=== PATIENT | female | born 1965 | race Hispanic/Latino ===

== ENCOUNTER 2018-01-10 05:04 | Emergency (ER) | payer SELFPAY ==
[2018-01-10] MEDS ORDERED: Ondansetron ODT 4 MG TAB ONE (05:28)
[2018-01-10] MEDS ORDERED: Metoclopramide HCl 10 MG/2 ML VIAL ONE (05:28)
[2018-01-10] MEDS ORDERED: diphenhydrAMINE 50 MG/ML VIAL ONE (05:28)
[2018-01-10] MEDS ORDERED: Acetaminophen 500 MG TAB ONE ×2 (05:38→05:39)
[2018-01-10] MEDS ORDERED: Ketorolac Tromethamine 30 MG/ML VIAL ONE (05:47)
== END 2018-01-10 06:25 | disposition home or self-care (01) ==
LOC: ERS 05:04
DX: G43.909 Migraine, unspecified, not intractable, without status migrainosus (principal)
CPT/HCPCS: 96365; 96375; J1200; J1885; J2765; Q0162

== ENCOUNTER 2020-12-06 13:28 | Emergency (ER) | payer SELFPAY | END 2020-12-06 16:06 | disposition home or self-care (01) | LOC: ERS 13:28 | DX: K08.89 Other specified disorders of teeth and supporting structures (principal); G43.909 Migraine, unspecified, not intractable, without status migrainosus | CPT/HCPCS: 99282 ==

== ENCOUNTER 2021-12-15 21:59 | Emergency (ER) | payer SELFPAY ==
[2021-12-15 22:53] LABS: #Eosinphils 0.8 thou/uL (0.0-0.7); #Lymphocytes 1.9 thou/uL (1.20-3.40); #Monocytes 0.9 thou/uL (0.11-0.59); #Neutrophils 4.2 thou/uL (1.40-6.50); %Basophils 0.3 % (0.0-1.0); %Eosinophils 9.8 % (0.0-10.0); %Lymphocytes 24.7 % (21.0-51.0); %Monocytes 11.4 % (0.0-10.0); %Neutrophils 53.8 % (42.0-75.0); Mean Corpuscular HGB CONC 34.6 g/dL (32.0-36.0); Mean Corpuscular Hemoglobin 32.1 pg (27.0-31.0); Mean Corpuscular Volume 92.6 fL (78.0-98.0); Mean Platelet Volume 6.3 fL (7.4-10.4); Platelet Count 318 thou/uL (130-400); RBC Distribution Width 12.9 % (11.5-14.5); Red Blood Cell (RBC) Count 4.36 mill/uL (4.20-5.40); White Blood Cell (WBC) Count 7.9 thou/uL (4.8-10.8)
[2021-12-15 23:15] LABS: ALT (SGPT) 16 U/L (8-55); AST (SGOT) 12 U/L (5-34); Alkaline Phosphatase 72 U/L (40-110); Anion Gap 13 mmol/L (10-20); BUN (Urea Nitrogen) 10 mg/dL (9.8-20.1); Bilirubin, Total 0.5 mg/dL (0.2-1.2); Calc. Creatinine Clearance 0 mL/min (70-130); Calcium 8.6 mg/dL (7.8-10.44); Carbon Dioxide 24 mmol/L (22-29); Chloride 106 mmol/L (98-107); Globulin 3.4 g/dL (2.4-3.5); Glucose 119 mg/dL (70-105); Potassium 3.1 mmol/L (3.5-5.1); Protein, Total 7.4 g/dL (6.0-8.3); Sodium 140 mmol/L (136-145)
== END 2021-12-15 23:52 | disposition home or self-care (01) ==
LOC: ERS 21:59
DX: N61.0 Mastitis without abscess (principal)
CPT/HCPCS: 80053; 85025; 99283

== ENCOUNTER 2022-04-10 07:57 | Emergency (ER) | payer SELFPAY ==
[2022-04-10] MEDS ORDERED: Ondansetron ODT 4 MG TAB ONE (08:32)
[2022-04-10] MEDS ORDERED: Acetaminophen 500 MG TAB ONE (08:32)
== END 2022-04-10 08:38 | disposition home or self-care (01) ==
LOC: ERS 07:57
DX: U07.1 COVID-19 (principal); G43.909 Migraine, unspecified, not intractable, without status migrainosus
CPT/HCPCS: 99283; Q0162; U0003; U0005

== ENCOUNTER 2022-05-30 10:26 | Emergency (ER) | payer SELFPAY ==
[2022-05-30 12:05] LABS: #Lymphocytes 0.8 thou/uL (1.20-3.40); #Monocytes 1.2 thou/uL (0.11-0.59); #Neutrophils 7.2 thou/uL (1.40-6.50); %Eosinophils 0.1 % (0.0-10.0); %Lymphocytes 8.7 % (21.0-51.0); %Monocytes 12.9 % (0.0-10.0); %Neutrophils 78.3 % (42.0-75.0); Hemoglobin 13.6 g/dL (12.0-16.0); Mean Corpuscular HGB CONC 32.7 g/dL (32.0-36.0); Mean Corpuscular Hemoglobin 29.2 pg (27.0-31.0); Mean Corpuscular Volume 89.2 fl (78.0-98.0); Mean Platelet Volume 6.9 fL (7.4-10.4); Platelet Count 262 thou/uL (130-400); RBC Distribution Width 14.3 % (11.5-14.5); Red Blood Cell (RBC) Count 4.67 mill/uL (4.20-5.40); White Blood Cell (WBC) Count 9.2 thou/uL (4.8-10.8)
[2022-05-30] MEDS ORDERED: Prochlorperazine 10 MG/2 ML VIAL IVP SCH (12:15)
[2022-05-30 12:21] LABS: Bacteria/HPF 1+ HPF (None Seen); Bilirubin Negative (Negative); Blood, Urine 2+ (Negative); Clarity Hazy (Clear); Glucose, Urine (Dipstick) Normal (Negative); Ketone, Urine 10 mg/dL (Negative); Leukocyte Negative Leu/uL (Negative); Nitrite Negative (Negative); Protein, Urine (Dipstick) 50 mg/dL (Neg-Trace); RBC/HPF 0-3 HPF (0-3); Specific Gravity, Urine 1.031 (1.002-1.036); Urobilinogen 3 mg/dL (Less than 2); WBC/HPF 0-3 HPF (0-3)
[2022-05-30 12:25] LABS: ALT (SGPT) 23 U/L (8-55); AST (SGOT) 18 U/L (5-34); Albumin 4.2 g/dL (3.5-5.0); Alkaline Phosphatase 143 U/L (40-110); Anion Gap 14 mmol/L (10-20); BUN (Urea Nitrogen) 12 mg/dL (9.8-20.1); Bilirubin, Total 1.6 mg/dL (0.2-1.2); Calc. Creatinine Clearance 0 mL/min (70-130); Calcium 9.5 mg/dL (7.8-10.44); Carbon Dioxide 24 mmol/L (22-29); Chloride 101 mmol/L (98-107); Estimated GFR 73; Globulin 4.6 g/dL (2.4-3.5); Glucose 119 mg/dL (70-105); Lipase 17 U/L (8-78); Potassium 3.5 mmol/L (3.5-5.1); Protein, Total 8.8 g/dL (6.0-8.3); Sodium 135 mmol/L (136-145)
== END 2022-05-30 13:17 | disposition home or self-care (01) ==
LOC: ERS 10:26
DX: R11.2 Nausea with vomiting, unspecified (principal)
CPT/HCPCS: 80053; 81003; 81015; 83605; 83690; 85025; 93005; 96361; 96374; J0780

== ENCOUNTER 2022-06-17 14:35 | Emergency (ER) | payer SELFPAY ==
[2022-06-17] MEDS ORDERED: Prochlorperazine 10 MG/2 ML VIAL ONE (16:35)
[2022-06-17] MEDS ORDERED: Prochlorperazine Maleate 5 MG TAB ONE (16:36)
== END 2022-06-17 17:04 | disposition home or self-care (01) ==
LOC: ERS 14:35
DX: K04.7 Periapical abscess without sinus (principal); G43.909 Migraine, unspecified, not intractable, without status migrainosus
CPT/HCPCS: 99282; J0780; Q0164

== ENCOUNTER 2022-07-20 13:35 | Inpatient (IN) | payer SELFPAY ==
[2022-07-20] MEDS ORDERED: Cefepime 2 GM VIAL ONE (14:02)
[2022-07-20] MEDS ORDERED: Ondansetron PF 4 MG/2 ML Vial ONE (14:13)
[2022-07-20 14:24] LABS: Hemoglobin 14.5 g/dL (12.0-16.0); Mean Corpuscular HGB CONC 33.7 g/dL (32.0-36.0); Mean Corpuscular Hemoglobin 30.2 pg (27.0-31.0); Mean Corpuscular Volume 89.5 fl (78.0-98.0); Mean Platelet Volume 7.2 fL (7.4-10.4); Platelet Count 264 10x3/uL (130-400); RBC Distribution Width 15.9 % (11.5-14.5); Red Blood Cell (RBC) Count 4.82 mill/uL (4.20-5.40); White Blood Cell (WBC) Count 9.1 10x3/uL (4.8-10.8)
[2022-07-20 14:38] LABS: ALT (SGPT) 19 U/L (8-55); AST (SGOT) 14 U/L (5-34); Albumin 4.1 g/dL (3.5-5.0); Alkaline Phosphatase 114 U/L (40-110); Anion Gap 16 mmol/L (10-20); BUN (Urea Nitrogen) 13 mg/dL (9.8-20.1); Bilirubin, Total 1.4 mg/dL (0.2-1.2); Calc. Creatinine Clearance 0 mL/min (70-130); Calcium 9.5 mg/dL (7.8-10.44); Carbon Dioxide 22 mmol/L (22-29); Chloride 99 mmol/L (98-107); Estimated GFR 73; Globulin 4.4 g/dL (2.4-3.5); Glucose 113 mg/dL (70-105); Lipase 18 U/L (8-78); Magnesium 2.1 mg/dL (1.6-2.6); Potassium 3.8 mmol/L (3.5-5.1); Protein, Total 8.5 g/dL (6.0-8.3); Sodium 133 mmol/L (136-145)
[2022-07-20 14:39] LABS: Anisocytosis SLIGHT = 6-15 cells (100X) (0-5/hpf); Band 8 % (5-11); Lymphocytes 6 % (21-51); MDiff Complete? YES; Monocytes 21 % (0-10); Neutrophil 64 % (42-75); Platelet Morphology Comment Appears Adequate; Reactive Lymphocytes 1 % (0-10)
[2022-07-20] MEDS ORDERED: Vancomycin 1 GM in Premix Bag 1 BAG IVPB SCH (15:00)
[2022-07-20] MEDS ORDERED: Iopamidol-370 76% 500 ML 1 ML ONE (15:02)
[2022-07-20] MEDS ORDERED: Vancomycin 1 GM/200 ML (FROZEN) BAG ONE (16:37)
[2022-07-20] MEDS ORDERED: Acetaminophen 500 MG TAB ONE (16:37)
[2022-07-20] MEDS ORDERED: Vancomycin 1.5 GRAM/300 ML BAG 1.5 GM in Premix Bag 1 BAG IVPB SCH (17:00)
[2022-07-20 17:14] LABS: Bacteria/HPF None Seen HPF (None Seen); Bilirubin Negative (Negative); Blood, Urine 1+ (Negative); Clarity Clear (Clear); Glucose, Urine (Dipstick) Normal (Negative); Ketone, Urine Trace mg/dL (Negative); Leukocyte Negative Leu/uL (Negative); Nitrite Negative (Negative); Protein, Urine (Dipstick) 20 mg/dL (Neg-Trace); Urobilinogen Normal mg/dL (Less than 2); WBC/HPF 0-3 HPF (0-3)
[2022-07-20 17:15] LABS: Specific Gravity, Urine Greater than 1.060 (1.002-1.036)
[2022-07-20] MEDS: Sodium Chloride 0.9% 1,000 ML IV SCH (22:16)
[2022-07-20] MEDS: Ondansetron PF 4 MG/2 ML Vial IVP PRN (22:19)
[2022-07-20 22:38] VITALS: BMI 28.3
[2022-07-21] MEDS: Acetaminophen 325 MG TAB PO PRN ×3 (01:17→16:22)
[2022-07-21] MEDS: Cefepime 1 GM in Sodium Chloride 0.9% 100 ML IVPB SCH ×2 (01:17→13:04)
[2022-07-21 03:16] LABS: SARS-CoV-2 NAA Rapid Test Not Detected (NotDetected)
[2022-07-21] MEDS: Sodium Chloride 0.9% 1,000 ML IV SCH ×2 (05:51→13:06)
[2022-07-21 06:36] LABS: ALT (SGPT) 15 U/L (8-55); AST (SGOT) 14 U/L (5-34); Albumin 3.1 g/dL (3.5-5.0); Alkaline Phosphatase 84 U/L (40-110); Anion Gap 12 mmol/L (10-20); BUN (Urea Nitrogen) 11 mg/dL (9.8-20.1); Bilirubin, Total 0.9 mg/dL (0.2-1.2); Calc. Creatinine Clearance 83 mL/min (70-130); Calcium 8.5 mg/dL (7.8-10.44); Carbon Dioxide 17 mmol/L (22-29); Chloride 110 mmol/L (98-107); Estimated GFR 92; Globulin 3.3 g/dL (2.4-3.5); Glucose 86 mg/dL (70-105); Potassium 4.2 mmol/L (3.5-5.1); Protein, Total 6.4 g/dL (6.0-8.3); Sodium 135 mmol/L (136-145)
[2022-07-21 07:22] LABS: Band 8 % (5-11); Hemoglobin 11.3 g/dL (12.0-16.0); Lymphocytes 12 % (21-51); MDiff Complete? YES; Mean Corpuscular HGB CONC 33.3 g/dL (32.0-36.0); Mean Corpuscular Hemoglobin 29.9 pg (27.0-31.0); Mean Corpuscular Volume 89.8 fl (78.0-98.0); Mean Platelet Volume 6.8 fL (7.4-10.4); Monocytes 17 % (0-10); Neutrophil 63 % (42-75); Platelet Count 204 10x3/uL (130-400); RBC Distribution Width 15.5 % (11.5-14.5); Red Blood Cell (RBC) Count 3.79 mill/uL (4.20-5.40); White Blood Cell (WBC) Count 6.3 10x3/uL (4.8-10.8)
[2022-07-21] MEDS ORDERED: FLU VACC QS2022-23(6MOS UP)/PF 60 MCG/0.5 ML SYRINGE IM ONE (09:00)
[2022-07-21] MEDS: Ondansetron ODT 4 MG TAB PO PRN (09:04)
[2022-07-21] MEDS: Lactated Ringer's 1,000 ML IV SCH (16:22)
[2022-07-21] MEDS: Vancomycin 1 GM in Premix Bag 1 BAG IVPB SCH (16:22)
[2022-07-21 16:56] LABS: Troponin I Less than 0.010 ng/mL (< 0.028)
[2022-07-21 17:13] LABS: HBCM Index 0.07 S/CO (0-0.79); HBSAg Index 0.37 S/CO (0-0.99); HIV (1/2) Antibody/Antigen Non-Reactive (NonReactive); HIV 1/2 INDEX 0.13 S/CO (<1.00); Hep A IgM AB Non-Reactive (NonReactive); Hep B Surf Ag Non-Reactive S/CO (NonReactive); Hep C IgG Ab Non-Reactive (NonReactive); Hep C Index 0.06 S/CO (0-0.79); Hepatitis B Core IgM Abs Non-Reactive (NonReactive)
[2022-07-21] MEDS ORDERED: Enoxaparin Sodium 40 MG/0.4 ML SYRINGE SC SCH (21:00)
[2022-07-21] MEDS: Ondansetron PF 4 MG/2 ML Vial IVP PRN (22:54)
[2022-07-22 00:43] LABS: Campy jejuni + coli by PCR Negative (Negative); STEC Shiga Toxin 1+2 Negative (Negative); Salmonella spp. by PCR Negative (Negative); Shigella spp + EIEC by PCR Negative (Negative)
[2022-07-22] MEDS: Cefepime 1 GM in Sodium Chloride 0.9% 100 ML IVPB SCH ×2 (02:34→13:03)
[2022-07-22] MEDS: Lactated Ringer's 1,000 ML IV SCH ×2 (02:35→11:38)
[2022-07-22] MEDS: Acetaminophen 325 MG TAB PO PRN ×3 (02:40→21:25)
[2022-07-22] MEDS: Ondansetron ODT 4 MG TAB PO PRN ×3 (05:08→21:25)
[2022-07-22 09:33] LABS: Hemoglobin 10.9 g/dL (12.0-16.0); Mean Corpuscular HGB CONC 32.1 g/dL (32.0-36.0); Mean Corpuscular Hemoglobin 29.3 pg (27.0-31.0); Mean Corpuscular Volume 91.3 fl (78.0-98.0); Mean Platelet Volume 6.8 fL (7.4-10.4); Platelet Count 227 10x3/uL (130-400); RBC Distribution Width 15.4 % (11.5-14.5); Red Blood Cell (RBC) Count 3.72 mill/uL (4.20-5.40); White Blood Cell (WBC) Count 5.2 10x3/uL (4.8-10.8)
[2022-07-22 09:34] LABS: Anion Gap 12 mmol/L (10-20); BUN (Urea Nitrogen) 7 mg/dL (9.8-20.1); Calc. Creatinine Clearance 103 mL/min (70-130); Calcium 8.6 mg/dL (7.8-10.44); Carbon Dioxide 19 mmol/L (22-29); Chloride 110 mmol/L (98-107); Estimated GFR 105; Glucose 101 mg/dL (70-105); Potassium 3.5 mmol/L (3.5-5.1); Sodium 137 mmol/L (136-145)
[2022-07-22 11:04] LABS: Syphilis Antibody Nonreactive (Nonreactive); Syphilis Antibody Index 0.08 S/CO (<1.00 Non-Reactive)
[2022-07-22 11:12] LABS: Band 15 % (5-11); Lymphocytes 14 % (21-51); MDiff Complete? YES; Monocytes 18 % (0-10); Neutrophil 51 % (42-75); Platelet Morphology Comment Appears Adequate; Polychromasia SLIGHT = 2-3 cells (100X) (0-2/hpf)
[2022-07-22] MEDS: Vancomycin 1 GM in Premix Bag 1 BAG IVPB SCH (16:13)
[2022-07-23] MEDS: Ondansetron ODT 4 MG TAB PO PRN ×2 (07:25→15:34)
[2022-07-23 08:34] LABS: #Eosinphils 0.2 thou/uL (0.0-0.7); #Lymphocytes 1.1 thou/uL (1.20-3.40); #Monocytes 0.6 thou/uL (0.11-0.59); %Basophils 0.2 % (0.0-1.0); %Eosinophils 3.8 % (0.0-10.0); %Lymphocytes 21.7 % (21.0-51.0); %Monocytes 12.5 % (0.0-10.0); %Neutrophils 61.9 % (42.0-75.0); Hemoglobin 11.8 g/dL (12.0-16.0); Mean Corpuscular HGB CONC 33.2 g/dL (32.0-36.0); Mean Corpuscular Hemoglobin 29.7 pg (27.0-31.0); Mean Corpuscular Volume 89.3 fl (78.0-98.0); Mean Platelet Volume 6.7 fL (7.4-10.4); Platelet Count 273 10x3/uL (130-400); RBC Distribution Width 15.3 % (11.5-14.5); Red Blood Cell (RBC) Count 3.98 mill/uL (4.20-5.40); White Blood Cell (WBC) Count 4.9 10x3/uL (4.8-10.8)
[2022-07-23 08:40] LABS: CRP (Inflammatory) 13.97 mg/dL (= or < 0.5)
[2022-07-23 08:41] LABS: Anion Gap 13 mmol/L (10-20); BUN (Urea Nitrogen) 5 mg/dL (9.8-20.1); Calc. Creatinine Clearance 97 mL/min (70-130); Calcium 8.9 mg/dL (7.8-10.44); Carbon Dioxide 23 mmol/L (22-29); Chloride 107 mmol/L (98-107); Estimated GFR 103; Glucose 99 mg/dL (70-105); Potassium 3.6 mmol/L (3.5-5.1); Sodium 139 mmol/L (136-145)
[2022-07-23 09:05] LABS: Ferritin 749.68 ng/mL (10-291)
[2022-07-23 11:27] LABS: Syphilis Antibody Nonreactive (Nonreactive); Syphilis Antibody Index 0.05 S/CO (<1.00 Non-Reactive)
[2022-07-23 11:51] LABS: Chlam.trachomatis by PCR,Urine Not Detected (NotDetected)
[2022-07-23] MEDS: Acetaminophen 325 MG TAB PO PRN (18:14)
[2022-07-23] MEDS: Ondansetron ODT 4 MG TAB PO SCH ×2 (18:15→23:41)
[2022-07-24] MEDS: Ondansetron ODT 4 MG TAB PO SCH ×4 (05:59→23:32)
[2022-07-24] MEDS: Acetaminophen 325 MG TAB PO PRN (06:00)
[2022-07-24 12:58] LABS: ANA Symphony (Qualitative) Negative (Negative); ANA Symphony (Quantitative) 0.3 Ratio (< 0.7 Negative); dsDNA IgG Antibody 0.9 IU/mL (<10 Negative)
[2022-07-25] MEDS: Acetaminophen 325 MG TAB PO PRN ×3 (04:43→23:50)
[2022-07-25] MEDS: Ondansetron ODT 4 MG TAB PO SCH ×4 (06:25→23:50)
[2022-07-25 10:13] LABS: Bartonella henselae IgG Negative titer (Neg:<1:320); Bartonella henselae IgM Negative titer (Neg:<1:100); Bartonella quintana IgG Negative titer (Neg:<1:320); Bartonella quintana IgM Negative titer (Neg:<1:100)
[2022-07-25] MEDS ORDERED: Lidocaine 1% PF 5 ML VIAL ONE ×2 (10:45→12:28)
[2022-07-25] MEDS ORDERED: PROPOFOL 200 MG/20 ML VIAL ONE (10:45)
[2022-07-25] MEDS ORDERED: Sodium Bicarbonate 2.5 MEQ/5 ML VIAL ONE (12:28)
[2022-07-26] MEDS: Ondansetron ODT 4 MG TAB PO SCH ×2 (05:31→14:18)
[2022-07-26] MEDS: Acetaminophen 325 MG TAB PO PRN (05:31)
[2022-07-26 06:17] VITALS: TEMP 98
[2022-07-26 08:15] VITALS: BP 104/68
[2022-07-26 08:38] LABS: Brucella IgM Ab Negative (Negative)
[2022-07-26] MEDS ORDERED: Sodium Bicarbonate 2.5 MEQ/5 ML VIAL ONE (11:27)
[2022-07-26] MEDS ORDERED: Lidocaine 1% PF 5 ML VIAL ONE (11:27)
[2022-07-26 16:54] LABS: Ref Lab Test Ordered KARIUS TEST; Reference Lab Name KARIUS
[2022-07-27 04:13] LABS: QuantiFERON-TB Gold Plus Negative (Negative)
[2022-07-30 17:10] LABS: EliA Celiac New Method **** NEW METHOD ****; t-Transglutaminase (tTG) IgA 1.7 EliAU/mL (<7 Negative)
== END 2022-07-26 14:40 | disposition home or self-care (01) | DRG 803 ==
LOC: ERS 13:35 → SURG B 17:39
PROVIDERS: ADMIT Hospitalist; ATTEND Internal Medicine
PROC: 0DB78ZX Excision of Stomach, Pylorus, Via Natural or Artificial Opening Endoscopic, Diagnostic (ICD-10-PCS; 2022-07-25)
PROC: 07BJ3ZX Excision of Left Inguinal Lymphatic, Percutaneous Approach, Diagnostic (ICD-10-PCS; principal; 2022-07-26)
DX: R59.1 Generalized enlarged lymph nodes (principal); E87.1 Hypo-osmolality and hyponatremia; Z20.822 Contact with and (suspected) exposure to COVID-19; G43.909 Migraine, unspecified, not intractable, without status migrainosus; F41.9 Anxiety disorder, unspecified; R31.9 Hematuria, unspecified; R63.4 Abnormal weight loss; D63.8 Anemia in other chronic diseases classified elsewhere; K29.70 Gastritis, unspecified, without bleeding; Z90.710 Acquired absence of both cervix and uterus; Z90.49 Acquired absence of other specified parts of digestive tract; Z88.5 Allergy status to narcotic agent; Z88.0 Allergy status to penicillin; Z79.899 Other long term (current) drug therapy; Z68.28 Body mass index [BMI] 28.0-28.9, adult; Z86.16 Personal history of COVID-19
CPT/HCPCS: 36415; 38505; 70450; 71045; 74177; 80048; 80053; 80074; 80202; 81003; 81015; 82533; 82607; 82728; 83516; 83540; 83550; 83605; 83630; 83690; 83735; 84484; 85025; 85652; 86038; 86140; 86225; 86480; 86611; 86622; 86780; 87040; 87086; 87338; 87389; 87491; 87505; 87591; 87804; 87807; 88184; 88185; 88305; 88312; 88333; 88341; 88342; 96365; 96366; 96375; J0692; J2405; J2704; J3370; J3370-JW; J3490; J7050; J7120; Q0162; Q9967; U0002

== ENCOUNTER 2022-08-05 19:09 | Inpatient (IN) | payer OTHER, SELFPAY ==
[~2022-08-05 19:09] MED LIST: Iopamidol-370 76% 500 ML 1 ML ONE
[2022-08-05 19:44] LABS: #Lymphocytes 1.4 thou/uL (1.20-3.40); #Monocytes 1.5 thou/uL (0.11-0.59); #Neutrophils 9.6 thou/uL (1.40-6.50); %Basophils 0.1 % (0.0-1.0); %Monocytes 11.7 % (0.0-10.0); %Neutrophils 77.2 % (42.0-75.0); Hemoglobin 13.4 g/dL (12.0-16.0); Mean Corpuscular HGB CONC 33.8 g/dL (32.0-36.0); Mean Corpuscular Hemoglobin 29.5 pg (27.0-31.0); Mean Corpuscular Volume 87.4 fl (78.0-98.0); Mean Platelet Volume 6.6 fL (7.4-10.4); Platelet Count 271 10x3/uL (130-400); RBC Distribution Width 15.7 % (11.5-14.5); Red Blood Cell (RBC) Count 4.55 mill/uL (4.20-5.40); White Blood Cell (WBC) Count 12.4 10x3/uL (4.8-10.8)
[2022-08-05 20:04] LABS: ALT (SGPT) 16 U/L (8-55); AST (SGOT) 15 U/L (5-34); Albumin 4.2 g/dL (3.5-5.0); Alkaline Phosphatase 107 U/L (40-110); Anion Gap 16 mmol/L (10-20); BUN (Urea Nitrogen) 11 mg/dL (9.8-20.1); Bilirubin, Total 1.3 mg/dL (0.2-1.2); Calc. Creatinine Clearance 0 mL/min (70-130); Calcium 9.1 mg/dL (7.8-10.44); Carbon Dioxide 21 mmol/L (22-29); Chloride 103 mmol/L (98-107); Estimated GFR 82; Globulin 3.6 g/dL (2.4-3.5); Glucose 117 mg/dL (70-105); Lipase 38 U/L (8-78); Potassium 4.1 mmol/L (3.5-5.1); Protein, Total 7.8 g/dL (6.0-8.3); Sodium 136 mmol/L (136-145)
[2022-08-05] MEDS ORDERED: Ondansetron PF 4 MG/2 ML Vial ONE (21:21)
[2022-08-05 21:41] LABS: Bacteria/HPF None Seen HPF (None Seen); Bilirubin Negative (Negative); Blood, Urine 2+ (Negative); Clarity Clear (Clear); Glucose, Urine (Dipstick) Normal (Negative); Ketone, Urine Negative (Negative); Leukocyte Negative Leu/uL (Negative); Nitrite Negative (Negative); Protein, Urine (Dipstick) 50 mg/dL (Neg-Trace); Specific Gravity, Urine 1.032 (1.002-1.036); Urobilinogen 3 mg/dL (Less than 2); WBC/HPF 0-3 HPF (0-3); pH, Urine 5.5 (5.0-9.0)
[2022-08-05 21:44] LABS: BHCG - Serum Negative (NEGATIVE); Pregs Control Background? CLEAR/WHITE (CLR/WHITE); Pregs Control Bar Appear? YES (CONTROL BAR)
[2022-08-05] MEDS ORDERED: Ketorolac Tromethamine 30 MG/ML VIAL ONE (21:52)
[2022-08-05 22:46] LABS: SARS-CoV-2 NAA Rapid Test Not Detected (NotDetected)
[2022-08-05] MEDS ORDERED: Cefepime 2 GM VIAL ONE (23:06)
[2022-08-06 00:30] LABS: Lactic Acid 1.2 mmol/L (0.5-2.2)
[2022-08-06] MEDS ORDERED: Vancomycin 1.5 GRAM/300 ML BAG 1.5 GM in Premix Bag 1 BAG IVPB SCH (00:45)
[2022-08-06] MEDS ORDERED: Ondansetron PF 4 MG/2 ML Vial ONE (03:37)
[2022-08-06] MEDS: Ondansetron PF 4 MG/2 ML Vial IVP PRN ×2 (03:52→19:53)
[2022-08-06] MEDS: Sodium Chloride 0.9% 1,000 ML IV SCH ×3 (03:53→19:56)
[2022-08-06 05:23] LABS: Anion Gap 14 mmol/L (10-20); BUN (Urea Nitrogen) 15 mg/dL (9.8-20.1); Calc. Creatinine Clearance 0 mL/min (70-130); Calcium 8.5 mg/dL (7.8-10.44); Carbon Dioxide 18 mmol/L (22-29); Chloride 107 mmol/L (98-107); Estimated GFR 86; Glucose 124 mg/dL (70-105); Potassium 4.3 mmol/L (3.5-5.1); Sodium 135 mmol/L (136-145)
[2022-08-06] MEDS ORDERED: Ketorolac Tromethamine 30 MG/ML VIAL ONE (05:34)
[2022-08-06] MEDS: Promethazine HCl 25 MG/ML VIAL IM PRN (05:40)
[2022-08-06] MEDS: Ketorolac Tromethamine 30 MG/ML VIAL IVP PRN ×2 (06:00→13:24)
[2022-08-06] MEDS ORDERED: Piperacillin/Tazobactam 3.375 GM in Sodium Chloride 0.9% 100 ML IVPB SCH (06:00)
[2022-08-06] MEDS ORDERED: Cefepime 2 GM VIAL ONE (06:18)
[2022-08-06 06:19] LABS: Hemoglobin 11.9 g/dL (12.0-16.0); Mean Corpuscular HGB CONC 34.8 g/dL (32.0-36.0); Mean Corpuscular Hemoglobin 30.5 pg (27.0-31.0); Mean Corpuscular Volume 87.7 fl (78.0-98.0); Platelet Count 204 10x3/uL (130-400); RBC Distribution Width 15.6 % (11.5-14.5); Red Blood Cell (RBC) Count 3.91 mill/uL (4.20-5.40); White Blood Cell (WBC) Count 9.1 10x3/uL (4.8-10.8)
[2022-08-06 06:41] LABS: Anisocytosis SLIGHT = 6-15 cells (100X) (0-5/hpf); Band 7 % (5-11); Lymphocytes 11 % (21-51); MDiff Complete? YES; Monocytes 12 % (0-10); Neutrophil 70 % (42-75); Platelet Morphology Comment Appears Adequate; Vacuoles SLIGHT
[2022-08-06] MEDS: Cefepime 2 GM in Sodium Chloride 0.9% 100 ML IVPB SCH ×2 (06:44→17:00)
[2022-08-06 13:36] VITALS: BMI 27.2
[2022-08-06] MEDS: Ondansetron ODT 4 MG TAB PO PRN (13:41)
[2022-08-06] MEDS: Acetaminophen 325 MG TAB PO PRN (19:54)
[2022-08-07] MEDS: Promethazine HCl 25 MG/ML VIAL IM PRN ×2 (03:03→08:56)
[2022-08-07] MEDS: Cefepime 2 GM in Sodium Chloride 0.9% 100 ML IVPB SCH ×2 (05:21→17:05)
[2022-08-07] MEDS: Sodium Chloride 0.9% 1,000 ML IV SCH ×2 (05:22→15:14)
[2022-08-07] MEDS: Acetaminophen 650 MG Suppository PR PRN (13:04)
[2022-08-07] MEDS ORDERED: Morphine 4 MG/ML VIAL SLOW IVP SCH (15:30)
[2022-08-07] MEDS: Acetaminophen 325 MG TAB PO PRN (19:40)
[2022-08-07] MEDS: Ondansetron PF 4 MG/2 ML Vial IVP PRN (19:40)
[2022-08-08] MEDS: Ondansetron PF 4 MG/2 ML Vial IVP PRN ×2 (01:07→10:48)
[2022-08-08] MEDS: Sodium Chloride 0.9% 1,000 ML IV SCH ×4 (01:10→20:56)
[2022-08-08] MEDS: Acetaminophen 325 MG TAB PO PRN ×3 (02:58→22:36)
[2022-08-08] MEDS: Calcium Carbonate 500 MG ChewTAB PO PRN ×2 (03:39→20:58)
[2022-08-08] MEDS ORDERED: Famotidine 20 MG TAB PO SCH (03:45)
[2022-08-08] MEDS: Cefepime 2 GM in Sodium Chloride 0.9% 100 ML IVPB SCH (06:08)
[2022-08-08 15:19] LABS: Ref Lab Test Ordered TROPHERYMA WHIPPLEI; Reference Lab Name LABCORP
[2022-08-08] MEDS: cefTRIAXone\\ROCEPHIN 2 GM in Sodium Chloride 0.9% 100 ML IVPB SCH (16:02)
[2022-08-08] MEDS: Ondansetron ODT 4 MG TAB PO PRN (20:58)
[2022-08-09] MEDS: Calcium Carbonate 500 MG ChewTAB PO PRN ×3 (00:33→21:01)
[2022-08-09] MEDS: Acetaminophen 325 MG TAB PO PRN ×3 (04:53→21:01)
[2022-08-09] MEDS: Ondansetron ODT 4 MG TAB PO PRN ×3 (04:53→21:01)
[2022-08-09] MEDS: Sodium Chloride 0.9% 1,000 ML IV SCH (10:29)
[2022-08-09] MEDS: cefTRIAXone\\ROCEPHIN 2 GM in Sodium Chloride 0.9% 100 ML IVPB SCH (15:00)
[2022-08-09] MEDS: Acetaminophen 650 MG Suppository PR PRN (15:18)
[2022-08-10] MEDS: Calcium Carbonate 500 MG ChewTAB PO PRN (06:35)
[2022-08-10] MEDS: Ondansetron ODT 4 MG TAB PO PRN ×3 (06:35→20:17)
[2022-08-10] MEDS: Acetaminophen 325 MG TAB PO PRN ×3 (06:36→20:17)
[2022-08-10] MEDS: cefTRIAXone\\ROCEPHIN 2 GM in Sodium Chloride 0.9% 100 ML IVPB SCH (15:05)
[2022-08-11] MEDS: Ondansetron ODT 4 MG TAB PO PRN ×2 (09:01→22:38)
[2022-08-11] MEDS: Acetaminophen 325 MG TAB PO PRN (09:01)
[2022-08-11] MEDS: cefTRIAXone\\ROCEPHIN 2 GM in Sodium Chloride 0.9% 100 ML IVPB SCH (15:13)
[2022-08-11] MEDS: Calcium Carbonate 500 MG ChewTAB PO PRN (21:16)
[2022-08-12] MEDS: Ondansetron ODT 4 MG TAB PO PRN ×3 (07:11→22:14)
[2022-08-12] MEDS: Acetaminophen 325 MG TAB PO PRN ×2 (12:39→22:09)
[2022-08-12] MEDS: cefTRIAXone\\ROCEPHIN 2 GM in Sodium Chloride 0.9% 100 ML IVPB SCH (14:15)
[2022-08-12] MEDS: Calcium Carbonate 500 MG ChewTAB PO PRN (18:13)
[2022-08-12] MEDS: Ondansetron PF 4 MG/2 ML Vial IVP PRN (22:09)
[2022-08-13 04:57] LABS: #Eosinphils 0.7 thou/uL (0.0-0.7); #Lymphocytes 1.4 thou/uL (1.20-3.40); #Monocytes 0.7 thou/uL (0.11-0.59); #Neutrophils 3.9 thou/uL (1.40-6.50); %Basophils 0.3 % (0.0-1.0); %Lymphocytes 20.8 % (21.0-51.0); %Monocytes 9.8 % (0.0-10.0); %Neutrophils 59.1 % (42.0-75.0); Hemoglobin 12.4 g/dL (12.0-16.0); Mean Corpuscular HGB CONC 32.3 g/dL (32.0-36.0); Mean Corpuscular Hemoglobin 28.8 pg (27.0-31.0); Mean Corpuscular Volume 89.2 fl (78.0-98.0); Mean Platelet Volume 5.9 fL (7.4-10.4); Platelet Count 399 10x3/uL (130-400); RBC Distribution Width 16.2 % (11.5-14.5); Red Blood Cell (RBC) Count 4.29 mill/uL (4.20-5.40); White Blood Cell (WBC) Count 6.6 10x3/uL (4.8-10.8)
[2022-08-13 05:04] LABS: ALT (SGPT) 27 U/L (8-55); AST (SGOT) 19 U/L (5-34); Albumin 3.6 g/dL (3.5-5.0); Alkaline Phosphatase 85 U/L (40-110); Anion Gap 12 mmol/L (10-20); BUN (Urea Nitrogen) 10 mg/dL (9.8-20.1); Bilirubin, Total 0.3 mg/dL (0.2-1.2); CRP (Inflammatory) 1.98 mg/dL (= or < 0.5); Calc. Creatinine Clearance 81 mL/min (70-130); Calcium 9.7 mg/dL (7.8-10.44); Carbon Dioxide 29 mmol/L (22-29); Chloride 103 mmol/L (98-107); Estimated GFR 93; Globulin 3.8 g/dL (2.4-3.5); Glucose 92 mg/dL (70-105); Potassium 4.7 mmol/L (3.5-5.1); Protein, Total 7.4 g/dL (6.0-8.3); Sodium 139 mmol/L (136-145)
[2022-08-13] MEDS: Ondansetron ODT 4 MG TAB PO PRN ×3 (08:31→23:12)
[2022-08-13] MEDS: cefTRIAXone\\ROCEPHIN 2 GM in Sodium Chloride 0.9% 100 ML IVPB SCH (13:58)
[2022-08-13] MEDS: Acetaminophen 325 MG TAB PO PRN (13:59)
[2022-08-13] MEDS: Calcium Carbonate 500 MG ChewTAB PO PRN (23:12)
[2022-08-14] MEDS: Ondansetron ODT 4 MG TAB PO PRN ×2 (08:05→15:30)
[2022-08-14 08:44] VITALS: BP 113/72; TEMP 97.8
[2022-08-14] MEDS: Acetaminophen 325 MG TAB PO PRN (12:33)
[2022-08-14] MEDS: cefTRIAXone\\ROCEPHIN 2 GM in Sodium Chloride 0.9% 100 ML IVPB SCH (15:21)
== END 2022-08-14 19:13 | disposition home or self-care (01) | DRG 864 ==
LOC: ERS 19:09 → ERHOLD 23:31 → T4-B 08-06 12:59 → OBSVTOIN 08-08 09:59
PROVIDERS: ADMIT Internal Medicine; ATTEND Internal Medicine
PROC: 02HV33Z Insertion of Infusion Device into Superior Vena Cava, Percutaneous Approach (ICD-10-PCS; principal; 2022-08-12)
PROC: B5181ZA Fluoroscopy of Superior Vena Cava using Low Osmolar Contrast, Guidance (ICD-10-PCS; 2022-08-12)
PROC: B548ZZA Ultrasonography of Superior Vena Cava, Guidance (ICD-10-PCS; 2022-08-12)
DX: R50.9 Fever, unspecified (principal); R59.1 Generalized enlarged lymph nodes; Z20.822 Contact with and (suspected) exposure to COVID-19; G43.909 Migraine, unspecified, not intractable, without status migrainosus; E80.6 Other disorders of bilirubin metabolism; R10.84 Generalized abdominal pain; R11.2 Nausea with vomiting, unspecified; Z88.5 Allergy status to narcotic agent; Z88.0 Allergy status to penicillin; Z79.899 Other long term (current) drug therapy; Z90.710 Acquired absence of both cervix and uterus; Z90.49 Acquired absence of other specified parts of digestive tract; Z90.721 Acquired absence of ovaries, unilateral; Z86.16 Personal history of COVID-19
CPT/HCPCS: 36415; 36569; 71045; 71250; 74177; 80048; 80053; 81003; 81015; 83605; 83690; 84703; 85025; 86140; 86635; 87040; 87385; 87811; 88184; 93005; 93306; 96372; 96374; 96375; 96376; C1751; G0378; J0692; J0696; J1885; J2270; J2405; J2550; J3370; J3490; J7050; Q0162; Q9967

== ENCOUNTER 2022-08-21 14:10 | Inpatient (IN) | payer SELFPAY ==
[2022-08-21 14:59] LABS: Hemoglobin 13.3 g/dL (12.0-16.0); Mean Corpuscular HGB CONC 33.8 g/dL (32.0-36.0); Mean Corpuscular Volume 85.9 fl (78.0-98.0); Mean Platelet Volume 7.2 fL (7.4-10.4); Platelet Count 243 10x3/uL (130-400); RBC Distribution Width 16.2 % (11.5-14.5); Red Blood Cell (RBC) Count 4.58 mill/uL (4.20-5.40); White Blood Cell (WBC) Count 11.9 10x3/uL (4.8-10.8)
[2022-08-21] MEDS ORDERED: Cefepime 2 GM VIAL ONE (15:01)
[2022-08-21] MEDS ORDERED: Acetaminophen 500 MG TAB ONE (15:01)
[2022-08-21 15:16] LABS: Band 4 % (5-11); Lymphocytes 11 % (21-51); MDiff Complete? YES; Monocytes 12 % (0-10); Neutrophil 70 % (42-75); Platelet Morphology Comment Appears Adequate; RBC Morphology Normal; Reactive Lymphocytes 3 % (0-10)
[2022-08-21 15:29] LABS: Bilirubin Negative (Negative); Blood, Urine Negative (Negative); Clarity Clear (Clear); Glucose, Urine (Dipstick) Normal (Negative); Ketone, Urine Negative (Negative); Leukocyte Negative Leu/uL (Negative); Nitrite Negative (Negative); Protein, Urine (Dipstick) 10 mg/dL (Neg-Trace); Specific Gravity, Urine 1.024 (1.002-1.036); Urobilinogen Normal mg/dL (Less than 2); pH, Urine 5.5 (5.0-9.0)
[2022-08-21] MEDS ORDERED: Ondansetron PF 4 MG/2 ML Vial ONE ×2 (16:00→20:17)
[2022-08-21 16:10] LABS: SARS-CoV-2 NAA Rapid Test Not Detected (NotDetected)
[2022-08-21 16:14] LABS: ALT (SGPT) 13 U/L (8-55); AST (SGOT) 11 U/L (5-34); Albumin 3.5 g/dL (3.5-5.0); Alkaline Phosphatase 81 U/L (40-110); Anion Gap 14 mmol/L (10-20); BUN (Urea Nitrogen) 13 mg/dL (9.8-20.1); Bilirubin, Total 0.9 mg/dL (0.2-1.2); Calc. Creatinine Clearance 0 mL/min (70-130); Calcium 8.4 mg/dL (7.8-10.44); Carbon Dioxide 20 mmol/L (22-29); Chloride 103 mmol/L (98-107); Estimated GFR 96; Globulin 3.7 g/dL (2.4-3.5); Glucose 130 mg/dL (70-105); Protein, Total 7.2 g/dL (6.0-8.3); Sodium 133 mmol/L (136-145)
[2022-08-21] MEDS ORDERED: Vancomycin 1.5 GRAM/300 ML BAG 1.5 GM in Premix Bag 1 BAG IVPB SCH (17:00)
[2022-08-21 18:04] LABS: Lactic Acid 1.7 mmol/L (0.5-2.2)
[2022-08-21 19:33] VITALS: BMI 25.8
[2022-08-21] MEDS ORDERED: Ondansetron PF 4 MG/2 ML Vial IVP PRN (19:51)
[2022-08-21] MEDS ORDERED: Acetaminophen 325 MG TAB ONE (20:17)
[2022-08-21] MEDS ORDERED: Famotidine/PF 20 mg/2ml Vial ONE (20:18)
[2022-08-21] MEDS: Famotidine 20 MG TAB PO SCH (20:31)
[2022-08-21] MEDS: Acetaminophen 325 MG TAB PO PRN (20:31)
[2022-08-21] MEDS ORDERED: cefTRIAXone\\ROCEPHIN 2 GM VIAL IVPB SCH (21:45)
[2022-08-21] MEDS: cefTRIAXone\\ROCEPHIN 2 GM in Sodium Chloride 0.9% 100 ML IVPB SCH (23:15)
[2022-08-21] MEDS ORDERED: Sodium Chloride 0.9% 1,000 ML IV SCH (23:45)
[2022-08-22] MEDS: Acetaminophen 325 MG TAB PO PRN ×2 (00:44→20:39)
[2022-08-22] MEDS ORDERED: Ondansetron PF 4 MG/2 ML Vial IVP SCH (00:45)
[2022-08-22] MEDS ORDERED: Lorazepam 2 MG/ML VIAL SLOW IVP SCH (00:45)
[2022-08-22] MEDS ORDERED: Sodium Chloride 0.9% 500 ML IV SCH (00:45)
[2022-08-22] MEDS ORDERED: Acetaminophen 500 MG TAB PO SCH (00:45)
[2022-08-22] MEDS ORDERED: Acetaminophen 650 MG Suppository PR PRN (01:02)
[2022-08-22] MEDS ORDERED: Acetaminophen 650 MG Suppository PR SCH (01:15)
[2022-08-22] MEDS ORDERED: Ketorolac Tromethamine 30 MG/ML VIAL IVP SCH (01:30)
[2022-08-22] MEDS ORDERED: Ibuprofen 200 MG TAB PO PRN (03:15)
[2022-08-22] MEDS ORDERED: Ketorolac Tromethamine 30 MG/ML VIAL IVP PRN (03:32)
[2022-08-22 06:00] LABS: #Lymphocytes 0.5 thou/uL (1.20-3.40); #Monocytes 1.4 thou/uL (0.11-0.59); #Neutrophils 8.4 thou/uL (1.40-6.50); %Basophils 0.4 % (0.0-1.0); %Eosinophils 0.1 % (0.0-10.0); %Lymphocytes 4.4 % (21.0-51.0); %Monocytes 13.3 % (0.0-10.0); %Neutrophils 81.9 % (42.0-75.0); Mean Corpuscular HGB CONC 33.1 g/dL (32.0-36.0); Mean Corpuscular Hemoglobin 29.1 pg (27.0-31.0); Mean Corpuscular Volume 87.8 fl (78.0-98.0); Mean Platelet Volume 6.9 fL (7.4-10.4); Platelet Count 186 10x3/uL (130-400); RBC Distribution Width 16.1 % (11.5-14.5); Red Blood Cell (RBC) Count 3.79 mill/uL (4.20-5.40); White Blood Cell (WBC) Count 10.3 10x3/uL (4.8-10.8)
[2022-08-22 06:10] LABS: Anion Gap 14 mmol/L (10-20); BUN (Urea Nitrogen) 13 mg/dL (9.8-20.1); Calc. Creatinine Clearance 71 mL/min (70-130); Calcium 8.6 mg/dL (7.8-10.44); Carbon Dioxide 19 mmol/L (22-29); Chloride 108 mmol/L (98-107); Estimated GFR 86; Glucose 155 mg/dL (70-105); Magnesium 1.9 mg/dL (1.6-2.6); Potassium 3.7 mmol/L (3.5-5.1); Sodium 137 mmol/L (136-145)
[2022-08-22] MEDS: Loratadine 10 MG TAB PO SCH (08:26)
[2022-08-22] MEDS: Famotidine 20 MG TAB PO SCH ×2 (08:26→20:35)
[2022-08-22] MEDS: Ondansetron ODT 4 MG TAB PO PRN ×2 (09:50→20:39)
[2022-08-22 12:33] LABS: Ref Lab Test Ordered Multiple Myeloma Cas; Reference Lab Name LABCORP
[2022-08-22] MEDS: Acetaminophen 500 MG TAB PO PRN (13:26)
[2022-08-22] MEDS ORDERED: Iopamidol-370 76% 500 ML 1 ML ONE (15:18)
[2022-08-22] MEDS: cefTRIAXone\\ROCEPHIN 2 GM in Sodium Chloride 0.9% 100 ML IVPB SCH (23:03)
[2022-08-22] MEDS: Calcium Carbonate 500 MG ChewTAB PO PRN (23:24)
[2022-08-23] MEDS ORDERED: Ondansetron PF 4 MG/2 ML Vial IVP PRN (01:55)
[2022-08-23] MEDS ORDERED: Ondansetron PF 4 MG/2 ML Vial IVP SCH (02:00)
[2022-08-23] MEDS: Ondansetron ODT 4 MG TAB PO PRN ×3 (08:35→23:02)
[2022-08-23] MEDS: Acetaminophen 500 MG TAB PO PRN ×3 (08:36→23:04)
[2022-08-23] MEDS: Famotidine 20 MG TAB PO SCH ×2 (08:36→20:26)
[2022-08-23] MEDS: Loratadine 10 MG TAB PO SCH (08:36)
[2022-08-23 13:52] LABS: CCP IgG Antibody 1.7 EliAU/mL (<7 Negative); Rheumatoid Factor IgA Antibody 6.2 IU/mL (<14 Negative); Rheumatoid Factor IgM Antibody Less than 0.6 IU/mL (<3.5 Negative)
[2022-08-23] MEDS ORDERED: Temazepam 15 MG CAP PO PRN ×2 (14:17)
[2022-08-23 14:38] LABS: Reference Lab Name LABCORP
[2022-08-23] MEDS: cefTRIAXone\\ROCEPHIN 2 GM in Sodium Chloride 0.9% 100 ML IVPB SCH (23:07)
[2022-08-24] MEDS: Ondansetron ODT 4 MG TAB PO PRN ×3 (09:39→23:40)
[2022-08-24] MEDS: Famotidine 20 MG TAB PO SCH ×2 (09:40→20:06)
[2022-08-24] MEDS: Loratadine 10 MG TAB PO SCH (09:40)
[2022-08-24 12:09] LABS: EBV VCA IgM <36.0 U/mL (0.0-35.9); Nuclear AG IgG (EBNA) AB <18.0 U/mL (0.0-17.9)
[2022-08-24] MEDS: cefTRIAXone\\ROCEPHIN 2 GM in Sodium Chloride 0.9% 100 ML IVPB SCH (22:40)
[2022-08-25] MEDS: Acetaminophen 500 MG TAB PO PRN (02:13)
[2022-08-25] MEDS: Ondansetron ODT 4 MG TAB PO PRN ×3 (08:08→22:50)
[2022-08-25] MEDS: Famotidine 20 MG TAB PO SCH ×2 (10:06→20:29)
[2022-08-25] MEDS: Loratadine 10 MG TAB PO SCH (10:06)
[2022-08-25] MEDS: cefTRIAXone\\ROCEPHIN 2 GM in Sodium Chloride 0.9% 100 ML IVPB SCH (22:51)
[2022-08-26] MEDS: Acetaminophen 325 MG TAB PO PRN ×2 (06:43→12:48)
[2022-08-26] MEDS: Ondansetron ODT 4 MG TAB PO PRN ×3 (06:45→21:45)
[2022-08-26] MEDS: Loratadine 10 MG TAB PO SCH (10:17)
[2022-08-26] MEDS: Famotidine 20 MG TAB PO SCH ×2 (10:17→19:52)
[2022-08-26 20:08] LABS: Cytoplasmic (C-ANCA) <1:20 titer (Neg:<1:20); Myeloperoxidase AutoAbs <0.2 units (0.0-0.9); Perinuclear (P-ANCA) <1:20 titer (Neg:<1:20); Proteinase-3 AutoAbs Less than 0.2 units (0.0-0.9)
[2022-08-26] MEDS: Acetaminophen 500 MG TAB PO PRN (21:45)
[2022-08-27] MEDS: Famotidine 20 MG TAB PO SCH ×2 (08:41→19:50)
[2022-08-27] MEDS: Loratadine 10 MG TAB PO SCH (08:42)
[2022-08-27] MEDS ORDERED: fentaNYL PF 100 MCG/2 ML SYRINGE ONE (12:08)
[2022-08-27] MEDS ORDERED: Bupivacaine/Epinephrine 0.25% 30 ML VIAL ONE (12:11)
[2022-08-27] MEDS ORDERED: Lidocaine 2% PF 5 ML VIAL ONE (12:11)
[2022-08-27] MEDS ORDERED: Levofloxacin 500 mg/D5W 100 ml Premix Bag ONE (12:31)
[2022-08-27] MEDS ORDERED: Dexamethasone 20 MG/5 ML VIAL ONE (12:42)
[2022-08-27] MEDS ORDERED: Ondansetron PF 4 MG/2 ML Vial ONE (12:42)
[2022-08-27] MEDS ORDERED: PROPOFOL 200 MG/20 ML VIAL ONE (12:42)
[2022-08-27] MEDS ORDERED: PHENYLEPHRINE-NS 100 MCG/ML 10 ML SYRINGE ONE (12:42)
[2022-08-27] MEDS ORDERED: Lidocaine 1% PF 5 ML VIAL ONE (12:42)
[2022-08-27] MEDS ORDERED: Ondansetron HCl/PF 4 MG/2 ML Vial IVP PRN (13:23)
[2022-08-27] MEDS ORDERED: Promethazine HCl 25 MG/ML VIAL IM PRN (13:23)
[2022-08-27] MEDS ORDERED: Fentanyl 100 MCG/2 ML VIAL ONE ×2 (13:25→13:58)
[2022-08-27] MEDS: Acetaminophen 500 MG TAB PO PRN (16:48)
[2022-08-27] MEDS ORDERED: traMADol HCl 50 MG TAB PO PRN (18:18)
[2022-08-27] MEDS: traMADol HCl 50 MG TAB PO PRN (19:50)
[2022-08-27] MEDS: Ondansetron ODT 4 MG TAB PO PRN (19:53)
[2022-08-28] MEDS: Ondansetron ODT 4 MG TAB PO PRN (01:47)
[2022-08-28] MEDS: traMADol HCl 50 MG TAB PO PRN (01:49)
[2022-08-28] MEDS: Calcium Carbonate 500 MG ChewTAB PO PRN (03:13)
[2022-08-28] MEDS ORDERED: Melatonin 3 MG TAB PO PRN (03:53)
[2022-08-28] MEDS ORDERED: Lorazepam 2 MG/ML VIAL SLOW IVP SCH (04:15)
[2022-08-28] MEDS: Famotidine 20 MG TAB PO SCH (07:55)
[2022-08-28] MEDS: Loratadine 10 MG TAB PO SCH (07:55)
[2022-08-28 08:28] VITALS: BP 139/68; TEMP 97.6
[2022-08-30 16:15] LABS: HIV-1 Quantitative, RNA PCR <20 copies/mL (.)
== END 2022-08-28 12:41 | disposition home or self-care (01) | DRG 855 ==
LOC: ERS 14:10 → ERHOLD 17:17 → MSONC 22:48
PROVIDERS: ADMIT Internal Medicine; ATTEND Internal Medicine
PROC: 07B50ZX Excision of Right Axillary Lymphatic, Open Approach, Diagnostic (ICD-10-PCS; principal; 2022-08-27)
DX: R50.9 Fever, unspecified (principal); Z20.822 Contact with and (suspected) exposure to COVID-19; R59.1 Generalized enlarged lymph nodes; R19.7 Diarrhea, unspecified; G47.00 Insomnia, unspecified; Z88.5 Allergy status to narcotic agent; Z88.0 Allergy status to penicillin; Z86.16 Personal history of COVID-19; Z79.899 Other long term (current) drug therapy; Z90.710 Acquired absence of both cervix and uterus; Z90.49 Acquired absence of other specified parts of digestive tract; Z90.5 Acquired absence of kidney
CPT/HCPCS: 36415; 51701; 71045; 71260; 78306; 80048; 80053; 81003; 82164; 83516; 83520; 83605; 83615; 83735; 84145; 84550; 85025; 86037; 86200; 86644; 86664; 86665; 87040; 87324; 87449; 87536; 87811; 88184; 88185; 93005; 94760; 96365; 96367; 96375; A9503; J0692; J0696; J1100; J1650; J1885; J1956; J2001; J2060; J2405; J2704; J3010; J3370; J3490; J7030; J7050; Q0162; Q9967; S0028

== ENCOUNTER 2022-10-28 21:38 | Inpatient (IN) | payer SELFPAY ==
[2022-10-28] MEDS ORDERED: Acetaminophen 500 MG TAB ONE ×2 (22:07→22:58)
[2022-10-28] MEDS ORDERED: Promethazine HCl 25 MG in Sodium Chloride 0.9% 50 ML IVPB SCH (22:30)
[2022-10-28] MEDS ORDERED: Morphine 4 MG/ML VIAL ONE (22:30)
[2022-10-28] MEDS ORDERED: Ketorolac Tromethamine 30 MG/ML VIAL ONE (22:31)
[2022-10-28 22:38] LABS: Hemoglobin 13.2 g/dL (12.0-16.0); Mean Corpuscular HGB CONC 32.1 g/dL (32.0-36.0); Mean Corpuscular Hemoglobin 27.3 pg (27.0-31.0); Mean Corpuscular Volume 85.3 fl (78.0-98.0); Mean Platelet Volume 6.8 fL (7.4-10.4); Platelet Count 311 10x3/uL (130-400); Red Blood Cell (RBC) Count 4.84 mill/uL (4.20-5.40); White Blood Cell (WBC) Count 12.4 10x3/uL (4.8-10.8)
[2022-10-28 22:43] LABS: INR-International Normal Ratio 1.1; PTT 38.3 sec (22.9-36.1); Prothrombin Time 14.6 sec (12.0-14.7)
[2022-10-28 22:44] LABS: ALT (SGPT) 17 U/L (8-55); AST (SGOT) 13 U/L (5-34); Albumin 4.4 g/dL (3.5-5.0); Alkaline Phosphatase 94 U/L (40-110); Anion Gap 17 mmol/L (10-20); BUN (Urea Nitrogen) 16 mg/dL (9.8-20.1); Bilirubin, Total 1.1 mg/dL (0.2-1.2); Calc. Creatinine Clearance 0 mL/min (70-130); Calcium 9.8 mg/dL (7.8-10.44); Carbon Dioxide 20 mmol/L (22-29); Chloride 99 mmol/L (98-107); Estimated GFR 53; Globulin 4.5 g/dL (2.4-3.5); Glucose 173 mg/dL (70-105); Potassium 3.5 mmol/L (3.5-5.1); Protein, Total 8.9 g/dL (6.0-8.3); Sodium 132 mmol/L (136-145)
[2022-10-28 22:53] LABS: Band 8 % (5-11); Lymphocytes 9 % (21-51); MDiff Complete? YES; Monocytes 9 % (0-10); Neutrophil 74 % (42-75)
[2022-10-29] MEDS ORDERED: Vancomycin 1 GM/200 ML (FROZEN) BAG ONE (00:25)
[2022-10-29] MEDS ORDERED: Sodium Chloride 0.9% 1,000 ML IV SCH ×2 (01:30)
[2022-10-29 02:02] LABS: Hemoglobin 11.7 g/dL (12.0-16.0); Mean Corpuscular HGB CONC 33.5 g/dL (32.0-36.0); Mean Corpuscular Hemoglobin 28.6 pg (27.0-31.0); Mean Corpuscular Volume 85.3 fl (78.0-98.0); Mean Platelet Volume 6.8 fL (7.4-10.4); Platelet Count 247 10x3/uL (130-400); RBC Distribution Width 15.9 % (11.5-14.5); Red Blood Cell (RBC) Count 4.09 mill/uL (4.20-5.40)
[2022-10-29 02:15] LABS: Amphetamine Not Detected (NotDetected); Barbiturates Screen Not Detected (NotDetected); Benzodiazepine Screen Not Detected (NotDetected); Cocaine Metabolite Screen Not Detected (NotDetected); Methadone Not Detected (NotDetected); Methamphetamine Not Detected (NotDetected); Opiate Screen Detected (NotDetected); Oxycodone Screen Not Detected (NotDetected); Phencyclidine (PCP) Not Detected (NotDetected); THC/Cannabinoid Screen Detected (NotDetected); Tricyclic Screen Not Detected (NotDetected)
[2022-10-29 02:19] LABS: Lactic Acid 1.1 mmol/L (0.5-2.2)
[2022-10-29 02:27] LABS: Band 3 % (5-11); Lymphocytes 6 % (21-51); MDiff Complete? YES; Monocytes 9 % (0-10); Neutrophil 82 % (42-75)
[2022-10-29] MEDS: Promethazine HCl 12.5 MG in Sodium Chloride 0.9% 50 ML IVPB PRN ×4 (02:45→23:55)
[2022-10-29 02:48] VITALS: BMI 27.7
[2022-10-29 03:05] LABS: Bacteria/HPF None Seen HPF (None Seen); Bilirubin Negative (Negative); Blood, Urine Trace (Negative); Clarity Clear (Clear); Glucose, Urine (Dipstick) Normal (Negative); Ketone, Urine Negative (Negative); Leukocyte Negative Leu/uL (Negative); Nitrite Negative (Negative); Protein, Urine (Dipstick) Negative (Neg-Trace); RBC/HPF 0-3 HPF (0-3); Squamous Epithelial 0-3 HPF (0-3); Urobilinogen Normal mg/dL (Less than 2); WBC/HPF 0-3 HPF (0-3)
[2022-10-29 03:06] LABS: Specific Gravity, Urine Greater than 1.060 (1.002-1.036)
[2022-10-29 04:05] LABS: Chloride 105 mmol/L (98-107); Potassium 3.6 mmol/L (3.5-5.1); Sodium 134 mmol/L (136-145)
[2022-10-29 04:06] LABS: Calcium 8.5 mg/dL (7.8-10.44); Glucose 148 mg/dL (70-105)
[2022-10-29 04:08] LABS: Anion Gap 14 mmol/L (10-20); Carbon Dioxide 19 mmol/L (22-29)
[2022-10-29 04:09] LABS: Hemoglobin A1c 5.5 % (4.0-6.0)
[2022-10-29 04:10] LABS: Calc. Creatinine Clearance 62 mL/min (70-130); Estimated GFR 64; Phosphorus 3.1 mg/dL (2.3-4.7)
[2022-10-29 04:11] LABS: BUN (Urea Nitrogen) 15 mg/dL (9.8-20.1)
[2022-10-29] MEDS: Pantoprazole 40 MG VIAL IVP SCH ×2 (08:36→20:19)
[2022-10-29] MEDS: Cefepime 1 GM in Sodium Chloride 0.9% 100 ML IVPB SCH ×2 (08:37→20:19)
[2022-10-29] MEDS ORDERED: Lactated Ringer's 1,000 ML IV SCH (11:15)
[2022-10-29] MEDS ORDERED: Acetaminophen 650 MG Suppository PR PRN (14:50)
[2022-10-29] MEDS ORDERED: Moisturizing Cream (Eucerin) 113 GM JAR TOP PRN (14:50)
[2022-10-29] MEDS ORDERED: Acetaminophen 500 MG TAB PO PRN (14:50)
[2022-10-29] MEDS ORDERED: Calcium Carbonate 500 MG ChewTAB PO PRN (14:50)
[2022-10-29] MEDS ORDERED: Sodium Chloride 0.65% Nasal 44 ML BOT EA NARE PRN (14:50)
[2022-10-29] MEDS ORDERED: diphenhydrAMINE 25 MG CAP PO PRN (14:50)
[2022-10-29] MEDS ORDERED: Artificial Tear Sol 15 ML BOT EA EYE PRN (14:50)
[2022-10-29] MEDS ORDERED: Loratadine 10 MG TAB PO PRN (14:50)
[2022-10-29] MEDS: Acetaminophen 500 MG TAB PO PRN (15:13)
[2022-10-29] MEDS: Lactated Ringer's 1,000 ML IV SCH ×2 (15:14→23:55)
[2022-10-29 18:00] LABS: HIV (1/2) Antibody/Antigen Non-Reactive (NonReactive); HIV 1/2 INDEX 0.28 S/CO (<1.00)
[2022-10-30] MEDS ORDERED: Morphine 2 MG/ML VIAL SLOW IVP SCH (01:15)
[2022-10-30 07:14] LABS: Hemoglobin 10.9 g/dL (12.0-16.0); Mean Corpuscular HGB CONC 32.2 g/dL (32.0-36.0); Mean Corpuscular Hemoglobin 27.9 pg (27.0-31.0); Mean Corpuscular Volume 86.7 fl (78.0-98.0); Mean Platelet Volume 6.6 fL (7.4-10.4); Platelet Count 259 10x3/uL (130-400); RBC Distribution Width 15.6 % (11.5-14.5); Red Blood Cell (RBC) Count 3.91 mill/uL (4.20-5.40); White Blood Cell (WBC) Count 5.7 10x3/uL (4.8-10.8)
[2022-10-30 07:36] LABS: Anion Gap 10 mmol/L (10-20); BUN (Urea Nitrogen) 9 mg/dL (9.8-20.1); Calc. Creatinine Clearance 90 mL/min (70-130); Calcium 8.6 mg/dL (7.8-10.44); Carbon Dioxide 22 mmol/L (22-29); Chloride 109 mmol/L (98-107); Estimated GFR 101; Glucose 91 mg/dL (70-105); Potassium 3.4 mmol/L (3.5-5.1); Sodium 138 mmol/L (136-145)
[2022-10-30] MEDS: Promethazine HCl 12.5 MG in Sodium Chloride 0.9% 50 ML IVPB PRN ×3 (07:47→21:25)
[2022-10-30 08:24] LABS: Band 5 % (5-11); Eosinophils 1 % (0-10); Lymphocytes 19 % (21-51); MDiff Complete? YES; Monocytes 11 % (0-10); Neutrophil 62 % (42-75); RBC Morphology Normal
[2022-10-30] MEDS: Pantoprazole 40 MG VIAL IVP SCH ×2 (10:29→20:40)
[2022-10-30] MEDS: Acetaminophen 500 MG TAB PO PRN (11:10)
[2022-10-30] MEDS: Lactated Ringer's 1,000 ML IV SCH (12:24)
[2022-10-30] MEDS ORDERED: Morphine 2 MG/ML VIAL SLOW IVP PRN (14:44)
[2022-10-30 16:33] LABS: Campy jejuni + coli by PCR Negative (Negative); STEC Shiga Toxin 1+2 Negative (Negative); Salmonella spp. by PCR Negative (Negative); Shigella spp + EIEC by PCR Negative (Negative)
[2022-10-31 07:43] LABS: Hemoglobin 11.2 g/dL (12.0-16.0); Mean Corpuscular HGB CONC 32.9 g/dL (32.0-36.0); Mean Corpuscular Hemoglobin 28.2 pg (27.0-31.0); Mean Corpuscular Volume 85.7 fl (78.0-98.0); Mean Platelet Volume 6.6 fL (7.4-10.4); Platelet Count 296 10x3/uL (130-400); RBC Distribution Width 15.4 % (11.5-14.5); Red Blood Cell (RBC) Count 3.98 mill/uL (4.20-5.40); White Blood Cell (WBC) Count 5.2 10x3/uL (4.8-10.8)
[2022-10-31 07:54] LABS: Anion Gap 13 mmol/L (10-20); BUN (Urea Nitrogen) 9 mg/dL (9.8-20.1); Calc. Creatinine Clearance 93 mL/min (70-130); Calcium 8.9 mg/dL (7.8-10.44); Carbon Dioxide 22 mmol/L (22-29); Chloride 107 mmol/L (98-107); Estimated GFR 102; Glucose 89 mg/dL (70-105); Potassium 3.3 mmol/L (3.5-5.1); Sodium 139 mmol/L (136-145)
[2022-10-31 08:46] LABS: MDiff Complete? YES
[2022-10-31 08:47] LABS: Band 4 % (5-11); Eosinophils 8 % (0-10); Hypochromia SLIGHT = 6-15 cells (100X) (0-5/hpf); Lymphocytes 12 % (21-51); Monocytes 16 % (0-10); Neutrophil 58 % (42-75); Platelet Morphology Comment Appears Adequate; Reactive Lymphocytes 2 % (0-10)
[2022-10-31] MEDS ORDERED: Potassium Chloride 20 MEQ TAB PO SCH (09:00)
[2022-10-31] MEDS: Pantoprazole 40 MG VIAL IVP SCH ×2 (09:22→20:46)
[2022-10-31] MEDS: Promethazine HCl 12.5 MG in Sodium Chloride 0.9% 50 ML IVPB PRN (18:20)
[2022-11-01] MEDS: Promethazine HCl 12.5 MG in Sodium Chloride 0.9% 50 ML IVPB PRN (01:11)
[2022-11-01 06:39] LABS: #Eosinphils 0.5 thou/uL (0.0-0.7); #Lymphocytes 1.2 thou/uL (1.20-3.40); #Monocytes 0.7 thou/uL (0.11-0.59); %Basophils 0.1 % (0.0-1.0); %Eosinophils 9.9 % (0.0-10.0); %Lymphocytes 22.2 % (21.0-51.0); %Neutrophils 54.7 % (42.0-75.0); Hemoglobin 11.7 g/dL (12.0-16.0); Mean Corpuscular HGB CONC 33.5 g/dL (32.0-36.0); Mean Corpuscular Hemoglobin 28.8 pg (27.0-31.0); Mean Corpuscular Volume 85.8 fl (78.0-98.0); Mean Platelet Volume 6.6 fL (7.4-10.4); Platelet Count 286 10x3/uL (130-400); RBC Distribution Width 15.6 % (11.5-14.5); Red Blood Cell (RBC) Count 4.06 mill/uL (4.20-5.40); White Blood Cell (WBC) Count 5.4 10x3/uL (4.8-10.8)
[2022-11-01 06:54] LABS: Anion Gap 13 mmol/L (10-20); BUN (Urea Nitrogen) 7 mg/dL (9.8-20.1); Calc. Creatinine Clearance 93 mL/min (70-130); Calcium 9.1 mg/dL (7.8-10.44); Carbon Dioxide 24 mmol/L (22-29); Chloride 107 mmol/L (98-107); Estimated GFR 102; Glucose 91 mg/dL (70-105); Potassium 3.9 mmol/L (3.5-5.1); Sodium 140 mmol/L (136-145)
[2022-11-01] MEDS: Pantoprazole 40 MG VIAL IVP SCH ×2 (08:32→08:35)
[2022-11-01 11:36] VITALS: BP 97/63; TEMP 97.9
[2022-11-02 17:13] LABS: QuantiFERON-TB Gold Plus Negative (Negative)
== END 2022-11-01 11:39 | disposition home or self-care (01) | DRG 864 ==
LOC: ERS 21:38 → T4-A 10-29 00:55 → OBSVTOIN 10-29 00:55
PROVIDERS: ADMIT Internal Medicine; ATTEND Internal Medicine
DX: R50.9 Fever, unspecified (principal); N17.9 Acute kidney failure, unspecified; R11.2 Nausea with vomiting, unspecified; E87.6 Hypokalemia; G43.909 Migraine, unspecified, not intractable, without status migrainosus; F41.9 Anxiety disorder, unspecified; E86.0 Dehydration; R59.1 Generalized enlarged lymph nodes; R19.7 Diarrhea, unspecified; Z88.5 Allergy status to narcotic agent; Z88.0 Allergy status to penicillin; Z79.899 Other long term (current) drug therapy; Z90.49 Acquired absence of other specified parts of digestive tract; Z90.710 Acquired absence of both cervix and uterus; Z90.721 Acquired absence of ovaries, unilateral; Z82.49 Family history of ischemic heart disease and other diseases of the circulatory system
CPT/HCPCS: 36415; 71045; 74177; 80048; 80053; 80306; 81003; 81015; 83036; 83605; 83630; 83690; 83735; 84100; 84443; 85025; 85610; 85652; 85730; 86140; 86480; 87040; 87086; 87389; 87505; 87633; 87798; 87807; 93005; 94760; 96361; 96365; 96367; 96375; C9113; J0692; J1885; J2270; J2272; J2550; J3370-JW; J3490; J7050; J7120

== ENCOUNTER 2022-11-14 14:02 | Inpatient (IN) | payer SELFPAY ==
[2022-11-14] MEDS ORDERED: Ketorolac Tromethamine 30 MG/ML VIAL ONE (14:39)
[2022-11-14] MEDS ORDERED: Metoclopramide HCl 10 MG/2 ML VIAL ONE (14:39)
[2022-11-14 14:52] LABS: Hemoglobin 12.4 g/dL (12.0-16.0); Mean Corpuscular HGB CONC 34.3 g/dL (32.0-36.0); Mean Corpuscular Hemoglobin 29.3 pg (27.0-31.0); Mean Corpuscular Volume 85.5 fl (78.0-98.0); Mean Platelet Volume 7.1 fL (7.4-10.4); Platelet Count 284 10x3/uL (130-400); RBC Distribution Width 16.6 % (11.5-14.5); Red Blood Cell (RBC) Count 4.23 mill/uL (4.20-5.40); White Blood Cell (WBC) Count 10.3 10x3/uL (4.8-10.8)
[2022-11-14] MEDS ORDERED: Cefepime 2 GM VIAL ONE (14:53)
[2022-11-14] MEDS ORDERED: Vancomycin 1.5 GRAM/300 ML BAG 1.5 GM in Premix Bag 1 BAG IVPB SCH (15:00)
[2022-11-14 15:06] LABS: Anisocytosis SLIGHT = 6-15 cells (100X) (0-5/hpf); Band 6 % (5-11); Lymphocytes 5 % (21-51); MDiff Complete? YES; Monocytes 8 % (0-10); Neutrophil 80 % (42-75); Platelet Morphology Comment Appears Adequate
[2022-11-14 15:13] LABS: ALT (SGPT) 20 U/L (8-55); AST (SGOT) 15 U/L (5-34); Albumin 4.1 g/dL (3.5-5.0); Alkaline Phosphatase 91 U/L (40-110); Anion Gap 14 mmol/L (10-20); BUN (Urea Nitrogen) 12 mg/dL (9.8-20.1); Bilirubin, Total 0.9 mg/dL (0.2-1.2); Calc. Creatinine Clearance 0 mL/min (70-130); Calcium 9.2 mg/dL (7.8-10.44); Carbon Dioxide 20 mmol/L (22-29); Chloride 103 mmol/L (98-107); Estimated GFR 71; Globulin 4.1 g/dL (2.4-3.5); Glucose 129 mg/dL (70-105); Potassium 3.3 mmol/L (3.5-5.1); Protein, Total 8.2 g/dL (6.0-8.3); Sodium 134 mmol/L (136-145)
[2022-11-14] MEDS ORDERED: Acetaminophen 500 MG TAB ONE (15:39)
[2022-11-14] MEDS ORDERED: Iopamidol-370 76% 500 ML MDV (1 ML CHARGE) ONE (15:41)
[2022-11-14] MEDS ORDERED: Dicyclomine 20 MG/2 ML VIAL ONE (15:42)
[2022-11-14 15:48] LABS: SARS-CoV-2 NAA Rapid Test Not Detected (NotDetected)
[2022-11-14] MEDS ORDERED: Calcium Carbonate 500 MG ChewTAB PO PRN (16:18)
[2022-11-14] MEDS ORDERED: Senokot S 8.6-50 MG TAB PO PRN (16:18)
[2022-11-14] MEDS ORDERED: Ondansetron PF 4 MG/2 ML Vial IVP PRN (16:18)
[2022-11-14 17:32] LABS: Bacteria/HPF None Seen HPF (None Seen); Bilirubin Negative (Negative); Blood, Urine Trace (Negative); Clarity Clear (Clear); Glucose, Urine (Dipstick) Normal (Negative); Ketone, Urine Negative (Negative); Leukocyte Negative Leu/uL (Negative); Nitrite Negative (Negative); Protein, Urine (Dipstick) 10 mg/dL (Neg-Trace); RBC/HPF 0-3 HPF (0-3); Squamous Epithelial 0-3 HPF (0-3); Urobilinogen Normal mg/dL (Less than 2); WBC/HPF 0-3 HPF (0-3); pH, Urine 6.5 (5.0-9.0)
[2022-11-14 17:33] LABS: Specific Gravity, Urine 1.051 (1.002-1.036)
[2022-11-14 17:36] LABS: Amphetamine Not Detected (NotDetected); Barbiturates Screen Not Detected (NotDetected); Benzodiazepine Screen Not Detected (NotDetected); Cocaine Metabolite Screen Not Detected (NotDetected); Methadone Not Detected (NotDetected); Methamphetamine Not Detected (NotDetected); Opiate Screen Not Detected (NotDetected); Oxycodone Screen Not Detected (NotDetected); Phencyclidine (PCP) Not Detected (NotDetected); THC/Cannabinoid Screen Detected (NotDetected); Tricyclic Screen Not Detected (NotDetected)
[2022-11-14] MEDS ORDERED: Morphine 2 MG/ML VIAL SLOW IVP PRN (18:00)
[2022-11-14] MEDS: Sodium Chloride 0.9% 1,000 ML IV SCH (20:29)
[2022-11-14] MEDS: Famotidine/PF 20 mg/2ml Vial SLOW IVP SCH (20:36)
[2022-11-14 20:41] VITALS: BMI 29.0
[2022-11-14] MEDS: Ondansetron ODT 4 MG TAB PO PRN (20:48)
[2022-11-14] MEDS ORDERED: Acetaminophen 650 MG Suppository PR PRN (23:21)
[2022-11-15] MEDS: Promethazine HCl 12.5 MG in Sodium Chloride 0.9% 50 ML IVPB PRN ×4 (00:27→23:58)
[2022-11-15 04:42] LABS: ALT (SGPT) 15 U/L (8-55); AST (SGOT) 12 U/L (5-34); Albumin 3.2 g/dL (3.5-5.0); Alkaline Phosphatase 73 U/L (40-110); Anion Gap 13 mmol/L (10-20); BUN (Urea Nitrogen) 10 mg/dL (9.8-20.1); Bilirubin, Total 0.6 mg/dL (0.2-1.2); CRP (Inflammatory) 24.49 mg/dL (= or < 0.5); Calc. Creatinine Clearance 85 mL/min (70-130); Calcium 7.8 mg/dL (7.8-10.44); Carbon Dioxide 17 mmol/L (22-29); Chloride 111 mmol/L (98-107); Estimated GFR 93; Globulin 2.6 g/dL (2.4-3.5); Glucose 131 mg/dL (70-105); Potassium 3.5 mmol/L (3.5-5.1); Protein, Total 5.8 g/dL (6.0-8.3); Sodium 137 mmol/L (136-145)
[2022-11-15 04:51] LABS: Anisocytosis SLIGHT = 6-15 cells (100X) (0-5/hpf); Band 2 % (5-11); Hemoglobin 9.9 g/dL (12.0-16.0); Lymphocytes 9 % (21-51); MDiff Complete? YES; Mean Corpuscular HGB CONC 32.8 g/dL (32.0-36.0); Mean Corpuscular Hemoglobin 28.2 pg (27.0-31.0); Mean Corpuscular Volume 86.1 fl (78.0-98.0); Monocytes 13 % (0-10); Neutrophil 76 % (42-75); Platelet Count 246 10x3/uL (130-400); Platelet Morphology Comment Appears Adequate; RBC Distribution Width 16.4 % (11.5-14.5); White Blood Cell (WBC) Count 6.3 10x3/uL (4.8-10.8)
[2022-11-15] MEDS: Acetaminophen 325 MG TAB PO PRN ×2 (05:48→20:02)
[2022-11-15] MEDS: Sodium Chloride 0.9% 1,000 ML IV SCH (07:01)
[2022-11-15] MEDS ORDERED: Potassium Chloride 20 MEQ TAB PO SCH (08:00)
[2022-11-15] MEDS: Ibuprofen 600 MG TAB PO PRN (08:48)
[2022-11-15] MEDS: Famotidine/PF 20 mg/2ml Vial SLOW IVP SCH ×2 (08:49→20:01)
[2022-11-15] MEDS: Lactated Ringer's 1,000 ML IV SCH ×2 (08:50→17:15)
[2022-11-15] MEDS ORDERED: Iopamidol-370 76% 500 ML MDV (1 ML CHARGE) ONE (11:26)
[2022-11-15 19:36] LABS: Campy jejuni + coli by PCR Negative (Negative); STEC Shiga Toxin 1+2 Negative (Negative); Salmonella spp. by PCR Negative (Negative); Shigella spp + EIEC by PCR Negative (Negative)
[2022-11-16] MEDS: Ondansetron ODT 4 MG TAB PO PRN (03:39)
[2022-11-16] MEDS: Lactated Ringer's 1,000 ML IV SCH (04:52)
[2022-11-16] MEDS: Ibuprofen 600 MG TAB PO PRN (04:52)
[2022-11-16 07:31] LABS: Hemoglobin 9.5 g/dL (12.0-16.0); Mean Corpuscular HGB CONC 32.9 g/dL (32.0-36.0); Mean Corpuscular Hemoglobin 28.1 pg (27.0-31.0); Mean Corpuscular Volume 85.6 fl (78.0-98.0); Mean Platelet Volume 6.9 fL (7.4-10.4); Platelet Count 227 10x3/uL (130-400); RBC Distribution Width 16.4 % (11.5-14.5); Red Blood Cell (RBC) Count 3.39 mill/uL (4.20-5.40); White Blood Cell (WBC) Count 5.3 10x3/uL (4.8-10.8)
[2022-11-16 07:50] LABS: ALT (SGPT) 18 U/L (8-55); AST (SGOT) 17 U/L (5-34); Alkaline Phosphatase 74 U/L (40-110); Anion Gap 12 mmol/L (10-20); BUN (Urea Nitrogen) 5 mg/dL (9.8-20.1); Bilirubin, Total 0.4 mg/dL (0.2-1.2); Calc. Creatinine Clearance 91 mL/min (70-130); Calcium 8.6 mg/dL (7.8-10.44); Carbon Dioxide 18 mmol/L (22-29); Chloride 109 mmol/L (98-107); Estimated GFR 101; Globulin 3.1 g/dL (2.4-3.5); Glucose 107 mg/dL (70-105); Potassium 3.1 mmol/L (3.5-5.1); Protein, Total 6.1 g/dL (6.0-8.3); Sodium 136 mmol/L (136-145)
[2022-11-16] MEDS: Famotidine/PF 20 mg/2ml Vial SLOW IVP SCH ×2 (08:54→20:12)
[2022-11-16] MEDS: Promethazine HCl 12.5 MG in Sodium Chloride 0.9% 50 ML IVPB PRN (09:44)
[2022-11-16 10:16] LABS: Anisocytosis SLIGHT = 6-15 cells (100X) (0-5/hpf); Eosinophils 2 % (0-10); Lymphocytes 10 % (21-51); MDiff Complete? YES; Monocytes 21 % (0-10); Neutrophil 67 % (42-75); Platelet Morphology Comment Appears Adequate
[2022-11-16] MEDS ORDERED: Potassium Chloride 20 MEQ TAB PO SCH (11:15)
[2022-11-16 14:51] LABS: Ref Lab Test Ordered HHV8 PCR; Reference Lab Name LABCORP
[2022-11-16] MEDS: Acetaminophen 325 MG TAB PO PRN (20:58)
[2022-11-17] MEDS: Promethazine HCl 12.5 MG in Sodium Chloride 0.9% 50 ML IVPB PRN ×3 (00:01→22:45)
[2022-11-17 07:11] LABS: #Eosinphils 0.3 thou/uL (0.0-0.7); #Lymphocytes 1.1 thou/uL (1.20-3.40); #Monocytes 0.9 thou/uL (0.11-0.59); #Neutrophils 3.7 thou/uL (1.40-6.50); %Basophils 0.3 % (0.0-1.0); %Eosinophils 4.7 % (0.0-10.0); %Monocytes 14.7 % (0.0-10.0); %Neutrophils 62.3 % (42.0-75.0); Hemoglobin 10.4 g/dL (12.0-16.0); Mean Corpuscular HGB CONC 34.3 g/dL (32.0-36.0); Mean Corpuscular Hemoglobin 29.4 pg (27.0-31.0); Mean Corpuscular Volume 85.7 fl (78.0-98.0); Mean Platelet Volume 7.5 fL (7.4-10.4); Platelet Count 238 10x3/uL (130-400); RBC Distribution Width 16.4 % (11.5-14.5); Red Blood Cell (RBC) Count 3.54 mill/uL (4.20-5.40); White Blood Cell (WBC) Count 5.9 10x3/uL (4.8-10.8)
[2022-11-17 07:34] LABS: Anion Gap 13 mmol/L (10-20); BUN (Urea Nitrogen) 7 mg/dL (9.8-20.1); Calc. Creatinine Clearance 98 mL/min (70-130); Calcium 8.8 mg/dL (7.8-10.44); Carbon Dioxide 20 mmol/L (22-29); Chloride 111 mmol/L (98-107); Estimated GFR 103; Glucose 83 mg/dL (70-105); Potassium 3.4 mmol/L (3.5-5.1); Sodium 141 mmol/L (136-145)
[2022-11-17 07:53] LABS: Ferritin 614.15 ng/mL (10-291)
[2022-11-17 08:04] LABS: HIV (1/2) Antibody/Antigen Non-Reactive (NonReactive)
[2022-11-17] MEDS: Famotidine/PF 20 mg/2ml Vial SLOW IVP SCH ×2 (08:34→20:02)
[2022-11-17] MEDS: Potassium Chloride 20 MEQ TAB PO SCH (08:34)
[2022-11-17 09:04] LABS: HIV 1/2 INDEX 0.13 S/CO (<1.00)
[2022-11-17 15:22] LABS: Ref Lab Test Ordered AFB CULTURE; Reference Lab Name LABCORP
[2022-11-17] MEDS: Ondansetron ODT 4 MG TAB PO PRN (17:50)
[2022-11-17 17:52] LABS: ANA Symphony (Qualitative) Negative (Negative); ANA Symphony (Quantitative) 0.4 Ratio (< 0.7 Negative); SSA/Ro IgG Antibody 0.5 EliAU/mL (<7 Negative); SSB/La IgG Antibody 0.5 EliAU/mL (<7 Negative); dsDNA IgG Antibody 1.3 IU/mL (<10 Negative)
[2022-11-17] MEDS: Acetaminophen 325 MG TAB PO PRN (20:02)
[2022-11-18 07:27] LABS: Anion Gap 12 mmol/L (10-20); BUN (Urea Nitrogen) 7 mg/dL (9.8-20.1); Calc. Creatinine Clearance 89 mL/min (70-130); Calcium 8.7 mg/dL (7.8-10.44); Carbon Dioxide 24 mmol/L (22-29); Chloride 111 mmol/L (98-107); Estimated GFR 97; Glucose 94 mg/dL (70-105); Potassium 3.8 mmol/L (3.5-5.1); Sodium 143 mmol/L (136-145)
[2022-11-18] MEDS: Famotidine/PF 20 mg/2ml Vial SLOW IVP SCH ×2 (08:43→20:11)
[2022-11-18] MEDS: Ondansetron ODT 4 MG TAB PO PRN (08:50)
[2022-11-18] MEDS ORDERED: fentaNYL 50 mcg/mL 1 mL Vial ONE (09:33)
[2022-11-18] MEDS ORDERED: Midazolam HCl 2 mg/2 ml Vial ONE (09:34)
[2022-11-18] MEDS ORDERED: Sodium Bicarbonate 2.5 MEQ/5 ML VIAL ONE (09:34)
[2022-11-18] MEDS: Potassium Chloride 20 MEQ TAB PO SCH (11:38)
[2022-11-18] MEDS: Promethazine HCl 12.5 MG in Sodium Chloride 0.9% 50 ML IVPB PRN ×2 (12:39→20:11)
[2022-11-19 07:45] VITALS: BP 126/71; TEMP 98.2
[2022-11-19] MEDS: Promethazine HCl 12.5 MG in Sodium Chloride 0.9% 50 ML IVPB PRN (08:39)
[2022-11-19] MEDS: Potassium Chloride 20 MEQ TAB PO SCH (08:39)
[2022-11-19] MEDS: Famotidine/PF 20 mg/2ml Vial SLOW IVP SCH (08:39)
[2022-11-19 12:38] LABS: Adenovirus F 40-41 Not Detected (Not Detected); Astrovirus Not Detected (Not Detected); Campylobacter by PCR Not Detected (Not Detected); Cryptosporidium Not Detected (Not Detected); Cyclospora cayetanensis Not Detected (Not Detected); Entamoeba histolytica Not Detected (Not Detected); Enteroaggregative E. coli Not Detected (Not Detected); Enteropathogenic E. coli DETECTED (Not Detected); Enterotoxigenic E. coli Not Detected (Not Detected); Giardia lamblia Not Detected (Not Detected); Norovirus GI-GII Not Detected (Not Detected); Plesiomonas shigelloides Not Detected (Not Detected); Rotavirus A Not Detected (Not Detected); Salmonella Not Detected (Not Detected); Sapovirus Not Detected (Not Detected); Shiga-toxin-producing E coli Not Detected (Not Detected); Shigella/Enteroinvasive E coli Not Detected (Not Detected); Vibrio Not Detected (Not Detected); Vibrio cholerae Not Detected (Not Detected); Yersinia enterocolitica Not Detected (Not Detected)
[2022-11-20 20:36] LABS: Coccidioides ABS (DID) Negative (Neg:<1:2)
[2022-11-21 16:14] LABS: Blastomyces Antibodies Negative (Neg:<1:1); Histoplasma Abs, Quant, DID Negative (Neg:<1:1)
== END 2022-11-19 13:40 | disposition home or self-care (01) | DRG 815 ==
LOC: SUATTDRO 14:02 → ERS 14:02 → T4-A 17:36 → 2NO 17:38 → T4-A 11-15 14:46
PROVIDERS: ADMIT Internal Medicine; ATTEND Family Medicine
PROC: 079T3ZX Drainage of Bone Marrow, Percutaneous Approach, Diagnostic (ICD-10-PCS; principal; 2022-11-18)
PROC: 07DR3ZX Extraction of Iliac Bone Marrow, Percutaneous Approach, Diagnostic (ICD-10-PCS; 2022-11-18)
DX: R59.1 Generalized enlarged lymph nodes (principal); E87.1 Hypo-osmolality and hyponatremia; E87.20 Acidosis, unspecified; R50.9 Fever, unspecified; F41.9 Anxiety disorder, unspecified; F32.A Depression, unspecified; E87.6 Hypokalemia; F39 Unspecified mood [affective] disorder; G43.909 Migraine, unspecified, not intractable, without status migrainosus; F12.10 Cannabis abuse, uncomplicated; R11.2 Nausea with vomiting, unspecified; R19.7 Diarrhea, unspecified; Z20.822 Contact with and (suspected) exposure to COVID-19; Z88.0 Allergy status to penicillin; Z88.5 Allergy status to narcotic agent; Z79.899 Other long term (current) drug therapy
CPT/HCPCS: 36415; 36416; 38222; 70491; 71045; 71260; 74177; 77012; 80048; 80053; 80306; 81003; 81015; 82164; 82728; 83605; 83615; 83630; 84145; 84443; 85025; 85097; 85652; 86038; 86140; 86225; 86235; 86612; 86635; 86698; 87040; 87086; 87324; 87389; 87449; 87505; 87507; 88184; 88237; 88305; 88311; 88312; 88313; 88341; 88342; 93005; 96361; 96365; 96366; 96367; 96368; 96372; 96374; J0692; J1650; J1885; J2250; J2550; J2765; J3010; J3370; J7050; J7120; Q0162; Q9967; S0028

== ENCOUNTER 2022-12-02 14:55 | Emergency (ER) | payer SELFPAY ==
[~2022-12-02 14:55] MED LIST changes: -Iopamidol-370 76% 500 ML 1 ML ONE; +Iopamidol-370 76% 500 ML MDV (1 ML CHARGE) ONE
[2022-12-02] MEDS ORDERED: Acetaminophen 500 MG TAB ONE (16:11)
[2022-12-02] MEDS ORDERED: Metoclopramide HCl 10 MG/2 ML VIAL ONE (16:18)
[2022-12-02 16:40] LABS: Hemoglobin 12.1 g/dL (12.0-16.0); Mean Corpuscular HGB CONC 32.8 g/dL (32.0-36.0); Mean Corpuscular Hemoglobin 27.6 pg (27.0-31.0); Mean Corpuscular Volume 83.9 fl (78.0-98.0); Mean Platelet Volume 6.7 fL (7.4-10.4); Platelet Count 310 10x3/uL (130-400); RBC Distribution Width 16.8 % (11.5-14.5); Red Blood Cell (RBC) Count 4.39 mill/uL (4.20-5.40); White Blood Cell (WBC) Count 7.8 10x3/uL (4.8-10.8)
[2022-12-02 16:55] LABS: Band 6 % (5-11); Lymphocytes 9 % (21-51); MDiff Complete? YES; Monocytes 8 % (0-10); Neutrophil 77 % (42-75); Platelet Morphology Comment Appears Adequate; RBC Morphology Normal
[2022-12-02 17:11] LABS: ALT (SGPT) 31 U/L (8-55); AST (SGOT) 31 U/L (5-34); Albumin 4.1 g/dL (3.5-5.0); Alkaline Phosphatase 124 U/L (40-110); Anion Gap 15 mmol/L (10-20); BUN (Urea Nitrogen) 9 mg/dL (9.8-20.1); Bilirubin, Total 0.7 mg/dL (0.2-1.2); Calc. Creatinine Clearance 0 mL/min (70-130); Calcium 9.7 mg/dL (7.8-10.44); Carbon Dioxide 20 mmol/L (22-29); Chloride 103 mmol/L (98-107); Estimated GFR 85; Globulin 4.7 g/dL (2.4-3.5); Glucose 106 mg/dL (70-105); Lipase 29 U/L (8-78); Potassium 3.6 mmol/L (3.5-5.1); Protein, Total 8.8 g/dL (6.0-8.3); Sodium 134 mmol/L (136-145)
[2022-12-02] MEDS ORDERED: Ondansetron PF 4 MG/2 ML Vial ONE (17:52)
[2022-12-02 18:46] LABS: Bacteria/HPF None Seen HPF (None Seen); Bilirubin Negative (Negative); Blood, Urine 1+ (Negative); Clarity Clear (Clear); Glucose, Urine (Dipstick) Normal (Negative); Ketone, Urine Negative (Negative); Leukocyte Negative Leu/uL (Negative); Nitrite Negative (Negative); Protein, Urine (Dipstick) 20 mg/dL (Neg-Trace); Squamous Epithelial 0-3 HPF (0-3); WBC/HPF 0-3 HPF (0-3)
[2022-12-02 18:51] LABS: Specific Gravity, Urine Greater than 1.060 (1.002-1.036)
[2022-12-02] MEDS ORDERED: Promethazine HCl 12.5 MG in Sodium Chloride 0.9% 50 ML IVPB SCH (19:00)
[2022-12-02 19:06] LABS: SARS-CoV-2 NAA Rapid Test Not Detected (NotDetected)
== END 2022-12-02 23:42 | disposition home or self-care (01) ==
LOC: ERS 14:55
DX: R11.10 Vomiting, unspecified (principal); R50.9 Fever, unspecified; Z20.822 Contact with and (suspected) exposure to COVID-19
CPT/HCPCS: 36415; 74177; 80053; 81003; 81015; 83605; 83690; 85025; 87040; 87804; 96361; 96374; 96375; J2405; J2550; J2765; Q9967

== ENCOUNTER 2023-01-21 10:15 | Emergency (ER) | payer SELFPAY ==
[2023-01-21] MEDS ORDERED: Acetaminophen 325 MG TAB ONE (10:32)
[2023-01-21] MEDS ORDERED: Metoclopramide 10 MG/10 ML UDCUP ONE (10:42)
[2023-01-21] MEDS ORDERED: diphenhydrAMINE 50 MG/ML VIAL ONE (10:42)
[2023-01-21] MEDS ORDERED: Morphine 4 MG/ML VIAL ONE (10:42)
[2023-01-21] MEDS ORDERED: Metoclopramide HCl 10 MG/2 ML VIAL ONE (10:43)
[2023-01-21 10:57] LABS: #Monocytes 1.7 thou/uL (0.11-0.59); #Neutrophils 10.4 thou/uL (1.40-6.50); %Basophils 0.2 % (0.0-1.0); %Eosinophils 0.1 % (0.0-10.0); %Lymphocytes 6.3 % (21.0-51.0); %Monocytes 12.7 % (0.0-10.0); %Neutrophils 80.1 % (42.0-75.0); Hemoglobin 11.6 g/dL (12.0-16.0); Mean Corpuscular HGB CONC 33.7 g/dL (32.0-36.0); Mean Corpuscular Hemoglobin 27.6 pg (27.0-31.0); Mean Corpuscular Volume 81.7 fl (78.0-98.0); Mean Platelet Volume 9.4 fL (7.4-10.4); Platelet Count 366 10x3/uL (130-400); RBC Distribution Width 18.6 % (11.5-14.5); Red Blood Cell (RBC) Count 4.21 mill/uL (4.20-5.40)
[2023-01-21 11:46] LABS: INR-International Normal Ratio 1.3; PTT 43.3 sec (22.9-36.1); Prothrombin Time 16.4 sec (12.0-14.7)
[2023-01-21 12:20] LABS: ALT (SGPT) 14 U/L (8-55); AST (SGOT) 14 U/L (5-34); Albumin 3.4 g/dL (3.5-5.0); Alkaline Phosphatase 92 U/L (40-110); Anion Gap 11 mmol/L (10-20); BUN (Urea Nitrogen) 13 mg/dL (9.8-20.1); Bilirubin, Total 0.9 mg/dL (0.2-1.2); Calc. Creatinine Clearance 0 mL/min (70-130); Calcium 8.5 mg/dL (7.8-10.44); Carbon Dioxide 20 mmol/L (22-29); Chloride 104 mmol/L (98-107); Estimated GFR 94; Globulin 3.8 g/dL (2.4-3.5); Glucose 134 mg/dL (70-105); Lipase 13 U/L (8-78); Potassium 3.6 mmol/L (3.5-5.1); Protein, Total 7.2 g/dL (6.0-8.3); Sodium 131 mmol/L (136-145)
[2023-01-21 12:44] LABS: SARS-CoV-2 NAA Rapid Test Not Detected (NotDetected)
[2023-01-21 12:49] LABS: Bacteria/HPF None Seen HPF (None Seen); Bilirubin Negative (Negative); Blood, Urine 1+ (Negative); CAUTI Indications for Culture Fever or rigors; Clarity Clear (Clear); Glucose, Urine (Dipstick) Normal (Negative); Ketone, Urine Negative (Negative); Leukocyte Negative Leu/uL (Negative); Nitrite Negative (Negative); Protein, Urine (Dipstick) 20 mg/dL (Neg-Trace); Squamous Epithelial 0-3 HPF (0-3); Urobilinogen Normal mg/dL (Less than 2); WBC/HPF 0-3 HPF (0-3)
[2023-01-21 12:50] LABS: Specific Gravity, Urine Greater than 1.060 (1.002-1.036); Urine Culture Reflex No No
== END 2023-01-21 13:25 | disposition home or self-care (01) ==
LOC: ERS 10:15
DX: R11.2 Nausea with vomiting, unspecified (principal); E86.0 Dehydration; R19.7 Diarrhea, unspecified; D72.829 Elevated white blood cell count, unspecified; Z20.822 Contact with and (suspected) exposure to COVID-19
CPT/HCPCS: 36415; 71045; 74177; 80053; 81001; 83605; 83690; 85025; 85610; 85730; 87040; 93005; 96361; 96365; 96375; J1200; J2270; J2765; Q9967

== ENCOUNTER 2023-02-06 19:53 | Emergency (ER) | payer SELFPAY ==
[2023-02-06 20:28] LABS: #Monocytes 1.3 thou/uL (0.11-0.59); #Neutrophils 7.7 thou/uL (1.40-6.50); %Basophils 0.2 % (0.0-1.0); %Lymphocytes 5.6 % (21.0-51.0); %Monocytes 13.6 % (0.0-10.0); %Neutrophils 80.2 % (42.0-75.0); Hemoglobin 10.2 g/dL (12.0-16.0); Mean Corpuscular HGB CONC 33.4 g/dL (32.0-36.0); Mean Corpuscular Hemoglobin 26.2 pg (27.0-31.0); Mean Corpuscular Volume 78.2 fl (78.0-98.0); Mean Platelet Volume 8.5 fL (7.4-10.4); Platelet Count 358 10x3/uL (130-400); RBC Distribution Width 17.9 % (11.5-14.5); White Blood Cell (WBC) Count 9.6 10x3/uL (4.8-10.8)
[2023-02-06] MEDS ORDERED: Acetaminophen 500 MG TAB ONE (20:36)
[2023-02-06] MEDS ORDERED: Ketorolac Tromethamine 30 MG/ML VIAL ONE (20:36)
[2023-02-06] MEDS ORDERED: Promethazine HCl 25 MG in Sodium Chloride 0.9% 50 ML IVPB SCH (20:45)
[2023-02-06 20:53] LABS: ALT (SGPT) 16 U/L (8-55); AST (SGOT) 18 U/L (5-34); Albumin 3.6 g/dL (3.5-5.0); Alkaline Phosphatase 112 U/L (40-110); Anion Gap 15 mmol/L (10-20); BUN (Urea Nitrogen) 13 mg/dL (9.8-20.1); Bilirubin, Total 0.8 mg/dL (0.2-1.2); Calc. Creatinine Clearance 0 mL/min (70-130); Calcium 9.2 mg/dL (7.8-10.44); Carbon Dioxide 19 mmol/L (22-29); Chloride 100 mmol/L (98-107); Estimated GFR 85; Globulin 4.6 g/dL (2.4-3.5); Glucose 157 mg/dL (70-105); Lipase 12 U/L (8-78); Potassium 3.2 mmol/L (3.5-5.1); Protein, Total 8.2 g/dL (6.0-8.3); Sodium 131 mmol/L (136-145)
[2023-02-06 21:12] LABS: Bacteria/HPF 2+ HPF (None Seen); Bilirubin Negative (Negative); Blood, Urine 2+ (Negative); CAUTI Indications for Culture Fever or rigors; Clarity Clear (Clear); Glucose, Urine (Dipstick) Normal (Negative); Ketone, Urine Negative (Negative); Leukocyte Negative Leu/uL (Negative); Mucous/LPF Rare LPF (<2+); Nitrite Negative (Negative); Protein, Urine (Dipstick) 30 mg/dL (Neg-Trace); Squamous Epithelial 0-3 HPF (0-3); Urobilinogen Normal mg/dL (Less than 2); WBC/HPF 0-3 HPF (0-3)
[2023-02-06 21:13] LABS: Specific Gravity, Urine Greater than 1.060 (1.002-1.036)
[2023-02-06 21:14] LABS: Urine Culture Reflex No No
[2023-02-06] MEDS ORDERED: Potassium Chloride 20 MEQ TAB ONE (21:44)
[2023-02-06] MEDS ORDERED: Ciprofloxacin 500 MG TAB ONE (21:44)
[2023-02-06 21:59] LABS: SARS-CoV-2 NAA Rapid Test Not Detected (NotDetected)
== END 2023-02-06 22:25 | disposition home or self-care (01) ==
LOC: ERS 19:53
DX: N39.0 Urinary tract infection, site not specified (principal); G43.909 Migraine, unspecified, not intractable, without status migrainosus; Z20.822 Contact with and (suspected) exposure to COVID-19
CPT/HCPCS: 74177; 80053; 81001; 83605; 83690; 85025; 93005; 96374; 96375; J1885; J2550

== ENCOUNTER 2023-02-20 09:42 | Inpatient (IN) | payer SELFPAY ==
[2023-02-20] MEDS ORDERED: Iopamidol 370 76% 100 ML VIAL ONE (10:07)
[2023-02-20] MEDS ORDERED: Prochlorperazine 10 MG/2 ML VIAL ONE (10:15)
[2023-02-20] MEDS ORDERED: Vancomycin 1 GM/200 ML (FROZEN) BAG ONE (10:15)
[2023-02-20] MEDS ORDERED: Acetaminophen 325 MG TAB ONE (10:15)
[2023-02-20] MEDS ORDERED: metroNIDAZOLE 500 MG/100 ML BAG ONE (10:15)
[2023-02-20 10:27] LABS: #Neutrophils 12.5 thou/uL (1.40-6.50); %Basophils 0.3 % (0.0-1.0); %Eosinophils 0.1 % (0.0-10.0); %Lymphocytes 4.4 % (21.0-51.0); %Monocytes 12.8 % (0.0-10.0); %Neutrophils 81.8 % (42.0-75.0); Hemoglobin 11.1 g/dL (12.0-16.0); Mean Corpuscular HGB CONC 32.3 g/dL (32.0-36.0); Mean Corpuscular Hemoglobin 26.3 pg (27.0-31.0); Mean Corpuscular Volume 81.5 fl (78.0-98.0); Mean Platelet Volume 8.9 fL (7.4-10.4); Platelet Count 374 10x3/uL (130-400); RBC Distribution Width 19.8 % (11.5-14.5); Red Blood Cell (RBC) Count 4.22 mill/uL (4.20-5.40); White Blood Cell (WBC) Count 15.3 10x3/uL (4.8-10.8)
[2023-02-20] MEDS ORDERED: Cefepime 2 GM VIAL ONE (10:48)
[2023-02-20 11:02] LABS: ALT (SGPT) 13 U/L (8-55); AST (SGOT) 23 U/L (5-34); Albumin 3.9 g/dL (3.5-5.0); Alkaline Phosphatase 118 U/L (40-110); Anion Gap 18 mmol/L (10-20); BUN (Urea Nitrogen) 13 mg/dL (9.8-20.1); Bilirubin, Total 1.9 mg/dL (0.2-1.2); Calc. Creatinine Clearance 0 mL/min (70-130); Calcium 9.6 mg/dL (7.8-10.44); Carbon Dioxide 17 mmol/L (22-29); Chloride 98 mmol/L (98-107); Estimated GFR 70; Globulin 4.9 g/dL (2.4-3.5); Glucose 134 mg/dL (70-105); Lipase 18 U/L (8-78); Magnesium 1.8 mg/dL (1.6-2.6); Potassium 4.2 mmol/L (3.5-5.1); Protein, Total 8.8 g/dL (6.0-8.3); Sodium 129 mmol/L (136-145)
[2023-02-20 11:27] LABS: INR-International Normal Ratio 1.2; PTT 41.5 sec (22.9-36.1); Prothrombin Time 15.3 sec (12.0-14.7)
[2023-02-20 12:00] LABS: Bacteria/HPF None Seen HPF (None Seen); Bilirubin Negative (Negative); Blood, Urine Trace (Negative); CAUTI Indications for Culture Fever or rigors; Clarity Clear (Clear); Glucose, Urine (Dipstick) Normal (Negative); Ketone, Urine Negative (Negative); Leukocyte Negative Leu/uL (Negative); Nitrite Negative (Negative); Protein, Urine (Dipstick) Negative (Neg-Trace); RBC/HPF 0-3 HPF (0-3); Specific Gravity, Urine 1.038 (1.002-1.036); Squamous Epithelial 0-3 HPF (0-3); Urobilinogen Normal mg/dL (Less than 2); WBC/HPF 0-3 HPF (0-3); pH, Urine 6.5 (5.0-9.0)
[2023-02-20] MEDS ORDERED: Morphine 4 MG/ML VIAL ONE (12:09)
[2023-02-20 12:13] LABS: Urine Culture Reflex No No
[2023-02-20] MEDS ORDERED: Promethazine HCl 25 MG in Sodium Chloride 0.9% 50 ML IVPB SCH (12:15)
[2023-02-20 13:30] LABS: SARS-CoV-2 NAA Rapid Test Not Detected (NotDetected)
[2023-02-20 17:56] VITALS: BMI 28.3
[2023-02-20] MEDS ORDERED: Ondansetron ODT 4 MG TAB PO PRN (18:14)
[2023-02-20 20:11] LABS: Amphetamine Not Detected (NotDetected); Barbiturates Screen Not Detected (NotDetected); Benzodiazepine Screen Not Detected (NotDetected); Cocaine Metabolite Screen Not Detected (NotDetected); Methadone Not Detected (NotDetected); Methamphetamine Not Detected (NotDetected); Opiate Screen Not Detected (NotDetected); Oxycodone Screen Not Detected (NotDetected); Phencyclidine (PCP) Not Detected (NotDetected); THC/Cannabinoid Screen Detected (NotDetected); Tricyclic Screen Not Detected (NotDetected)
[2023-02-20] MEDS: Ondansetron PF 4 MG/2 ML Vial IVP PRN (20:19)
[2023-02-20] MEDS: Acetaminophen 500 MG TAB PO PRN (20:19)
[2023-02-20] MEDS: Cefepime 2 GM in Sodium Chloride 0.9% 100 ML IVPB SCH (20:20)
[2023-02-20] MEDS: Famotidine/PF 20 mg/2ml Vial SLOW IVP SCH (20:20)
[2023-02-20] MEDS: Sodium Chloride 0.9% 1,000 ML IV SCH (20:22)
[2023-02-20] MEDS: metroNIDAZOLE 500 MG in Premix Bag 1 BAG IVPB SCH (20:22)
[2023-02-20] MEDS: Promethazine 25 MG TAB PO PRN (20:53)
[2023-02-20] MEDS ORDERED: Vancomycin HCl 1 GM in Sodium Chloride 0.9% 250 ML 300 ML IVPB SCH (21:00)
[2023-02-20] MEDS: Vancomycin HCl 750 MG in Sodium Chloride 0.9% 250 ML 250 ML IVPB SCH (23:15)
[2023-02-21] MEDS: Acetaminophen 500 MG TAB PO PRN ×3 (01:59→21:52)
[2023-02-21] MEDS: Ondansetron PF 4 MG/2 ML Vial IVP PRN ×3 (02:01→20:22)
[2023-02-21] MEDS: Promethazine 25 MG TAB PO PRN ×3 (02:01→20:22)
[2023-02-21] MEDS: metroNIDAZOLE 500 MG in Premix Bag 1 BAG IVPB SCH ×3 (05:25→22:18)
[2023-02-21] MEDS: Sodium Chloride 0.9% 1,000 ML IV SCH ×4 (06:03→20:38)
[2023-02-21 06:29] LABS: #Monocytes 1.6 thou/uL (0.11-0.59); #Neutrophils 7.9 thou/uL (1.40-6.50); %Basophils 0.2 % (0.0-1.0); %Lymphocytes 4.7 % (21.0-51.0); %Monocytes 16.2 % (0.0-10.0); %Neutrophils 78.4 % (42.0-75.0); Hemoglobin 9.4 g/dL (12.0-16.0); Mean Corpuscular HGB CONC 32.6 g/dL (32.0-36.0); Mean Corpuscular Hemoglobin 26.9 pg (27.0-31.0); Mean Corpuscular Volume 82.3 fl (78.0-98.0); Mean Platelet Volume 8.9 fL (7.4-10.4); Platelet Count 301 10x3/uL (130-400); RBC Distribution Width 19.6 % (11.5-14.5); White Blood Cell (WBC) Count 10.1 10x3/uL (4.8-10.8)
[2023-02-21 06:52] LABS: ALT (SGPT) 8 U/L (8-55); AST (SGOT) 10 U/L (5-34); Albumin 3.3 g/dL (3.5-5.0); Alkaline Phosphatase 92 U/L (40-110); Anion Gap 13 mmol/L (10-20); BUN (Urea Nitrogen) 7 mg/dL (9.8-20.1); Bilirubin, Total 0.8 mg/dL (0.2-1.2); Calc. Creatinine Clearance 81 mL/min (70-130); Calcium 8.7 mg/dL (7.8-10.44); Carbon Dioxide 17 mmol/L (22-29); Chloride 107 mmol/L (98-107); Estimated GFR 90; Globulin 3.7 g/dL (2.4-3.5); Glucose 157 mg/dL (70-105); Potassium 3.4 mmol/L (3.5-5.1); Sodium 134 mmol/L (136-145)
[2023-02-21] MEDS: Cefepime 2 GM in Sodium Chloride 0.9% 100 ML IVPB SCH ×2 (08:47→20:23)
[2023-02-21] MEDS: Famotidine/PF 20 mg/2ml Vial SLOW IVP SCH ×2 (08:47→20:22)
[2023-02-21] MEDS: Vancomycin HCl 750 MG in Sodium Chloride 0.9% 250 ML 250 ML IVPB SCH (11:57)
[2023-02-21] MEDS ORDERED: Promethazine HCl 25 MG in Sodium Chloride 0.9% 50 ML IVPB PRN (12:45)
[2023-02-21] MEDS ORDERED: GoLYTELY 4,000 ml Bottle PO SCH (13:00)
[2023-02-22 01:24] LABS: Vancomycin, Trough 4.6 ug/mL
[2023-02-22] MEDS: Vancomycin HCl 750 MG in Sodium Chloride 0.9% 250 ML 250 ML IVPB SCH (01:43)
[2023-02-22] MEDS: Promethazine 25 MG TAB PO PRN ×4 (02:12→19:45)
[2023-02-22] MEDS: Vancomycin 1 GM in Premix Bag 1 BAG IVPB SCH ×2 (02:12→10:49)
[2023-02-22] MEDS: Ondansetron PF 4 MG/2 ML Vial IVP PRN ×3 (02:12→19:45)
[2023-02-22] MEDS: metroNIDAZOLE 500 MG in Premix Bag 1 BAG IVPB SCH (05:42)
[2023-02-22] MEDS: Acetaminophen 500 MG TAB PO PRN ×2 (06:23→16:08)
[2023-02-22 07:01] LABS: Hemoglobin 9.5 g/dL (12.0-16.0); Mean Corpuscular HGB CONC 30.9 g/dL (32.0-36.0); Mean Corpuscular Hemoglobin 26.1 pg (27.0-31.0); Mean Corpuscular Volume 84.3 fl (78.0-98.0); Platelet Count 267 10x3/uL (130-400); RBC Distribution Width 19.4 % (11.5-14.5); Red Blood Cell (RBC) Count 3.64 mill/uL (4.20-5.40); White Blood Cell (WBC) Count 8.6 10x3/uL (4.8-10.8)
[2023-02-22 07:16] LABS: Anion Gap 15 mmol/L (10-20); BUN (Urea Nitrogen) 4 mg/dL (9.8-20.1); Calc. Creatinine Clearance 92 mL/min (70-130); Calcium 8.7 mg/dL (7.8-10.44); Carbon Dioxide 15 mmol/L (22-29); Chloride 108 mmol/L (98-107); Estimated GFR 102; Glucose 107 mg/dL (70-105); Sodium 135 mmol/L (136-145)
[2023-02-22 07:27] LABS: CRP (Inflammatory) 31.53 mg/dL (= or < 0.5)
[2023-02-22] MEDS ORDERED: Electrolyte Replacement Protocol 1 EACH FS SCH (07:47)
[2023-02-22] MEDS: Cefepime 2 GM in Sodium Chloride 0.9% 100 ML IVPB SCH (07:52)
[2023-02-22] MEDS: Famotidine/PF 20 mg/2ml Vial SLOW IVP SCH ×2 (07:53→19:45)
[2023-02-22] MEDS ORDERED: Potassium Chloride 20 MEQ TAB PO SCH ×2 (08:00→17:00)
[2023-02-22] MEDS ORDERED: PROPOFOL 200 MG/20 ML VIAL ONE (09:03)
[2023-02-22] MEDS ORDERED: Lidocaine 1% PF 5 ML VIAL ONE (09:03)
[2023-02-22] MEDS ORDERED: Promethazine HCl 25 MG/ML VIAL IM PRN (09:34)
[2023-02-22] MEDS ORDERED: Ondansetron HCl/PF 4 MG/2 ML Vial IVP PRN (09:34)
[2023-02-22] MEDS ORDERED: Iopamidol-370 76% 500 ML MDV (1 ML CHARGE) ONE (10:46)
[2023-02-22] MEDS: Sodium Chloride 0.9% 1,000 ML IV SCH ×2 (10:49→17:19)
[2023-02-22] MEDS ORDERED: Electrolyte Replacement Protocol FS PRN (17:00)
[2023-02-23] MEDS: Ondansetron PF 4 MG/2 ML Vial IVP PRN ×4 (00:59→21:49)
[2023-02-23] MEDS: Promethazine 25 MG TAB PO PRN ×4 (01:05→20:45)
[2023-02-23] MEDS: Acetaminophen 500 MG TAB PO PRN ×3 (01:05→19:05)
[2023-02-23] MEDS: Sodium Chloride 0.9% 1,000 ML IV SCH ×2 (02:30→08:28)
[2023-02-23 06:14] LABS: Adenovirus F 40-41 Not Detected (Not Detected); Astrovirus Not Detected (Not Detected); C. difficile toxin A+B Not Detected (Not Detected); Campylobacter by PCR Not Detected (Not Detected); Cryptosporidium Not Detected (Not Detected); Cyclospora cayetanensis Not Detected (Not Detected); Entamoeba histolytica Not Detected (Not Detected); Enteroaggregative E. coli Not Detected (Not Detected); Enteropathogenic E. coli Not Detected (Not Detected); Enterotoxigenic E. coli Not Detected (Not Detected); Giardia lamblia Not Detected (Not Detected); Norovirus GI-GII DETECTED (Not Detected); Plesiomonas shigelloides Not Detected (Not Detected); Rotavirus A Not Detected (Not Detected); Salmonella Not Detected (Not Detected); Sapovirus Not Detected (Not Detected); Shiga-toxin-producing E coli Not Detected (Not Detected); Shigella/Enteroinvasive E coli Not Detected (Not Detected); Vibrio Not Detected (Not Detected); Vibrio cholerae Not Detected (Not Detected); Yersinia enterocolitica Not Detected (Not Detected)
[2023-02-23 08:05] LABS: #Monocytes 1.3 thou/uL (0.11-0.59); #Neutrophils 5.8 thou/uL (1.40-6.50); %Basophils 0.4 % (0.0-1.0); %Eosinophils 0.3 % (0.0-10.0); %Lymphocytes 8.7 % (21.0-51.0); %Monocytes 16.6 % (0.0-10.0); %Neutrophils 73.5 % (42.0-75.0); Hemoglobin 9.4 g/dL (12.0-16.0); Mean Corpuscular HGB CONC 32.4 g/dL (32.0-36.0); Mean Corpuscular Hemoglobin 26.5 pg (27.0-31.0); Mean Corpuscular Volume 81.7 fl (78.0-98.0); Platelet Count 308 10x3/uL (130-400); RBC Distribution Width 19.1 % (11.5-14.5); Red Blood Cell (RBC) Count 3.55 mill/uL (4.20-5.40); White Blood Cell (WBC) Count 7.9 10x3/uL (4.8-10.8)
[2023-02-23] MEDS: Famotidine/PF 20 mg/2ml Vial SLOW IVP SCH (08:28)
[2023-02-23 08:30] LABS: Anion Gap 12 mmol/L (10-20); BUN (Urea Nitrogen) 4 mg/dL (9.8-20.1); Calc. Creatinine Clearance 93 mL/min (70-130); Calcium 8.5 mg/dL (7.8-10.44); Carbon Dioxide 21 mmol/L (22-29); Chloride 107 mmol/L (98-107); Estimated GFR 102; Glucose 103 mg/dL (70-105); Potassium 3.1 mmol/L (3.5-5.1); Sodium 137 mmol/L (136-145)
[2023-02-23] MEDS ORDERED: Potassium Chloride 20 MEQ TAB PO SCH ×2 (09:00→14:15)
[2023-02-23 11:40] LABS: Syphilis Antibody Nonreactive (Nonreactive); Syphilis Antibody Index 0.23 S/CO (<1.00 Non-Reactive)
[2023-02-23 13:34] LABS: Potassium 3.3 mmol/L (3.5-5.1)
[2023-02-23 19:53] LABS: Potassium 3.4 mmol/L (3.5-5.1)
[2023-02-23] MEDS: Famotidine 20 MG TAB PO SCH (20:41)
[2023-02-24] MEDS: Ondansetron PF 4 MG/2 ML Vial IVP PRN ×2 (05:57→21:59)
[2023-02-24] MEDS: Promethazine 25 MG TAB PO PRN (05:57)
[2023-02-24] MEDS ORDERED: Potassium Chloride 20 MEQ TAB PO SCH (08:00)
[2023-02-24] MEDS: Acetaminophen 500 MG TAB PO PRN (08:22)
[2023-02-24] MEDS: Famotidine 20 MG TAB PO SCH ×2 (08:22→20:05)
[2023-02-24] MEDS ORDERED: fentaNYL 50 mcg/mL 1 mL Vial ONE ×2 (14:35→17:51)
[2023-02-24] MEDS ORDERED: SUGAMMADEX SODIUM 200 MG/2 ML VIAL ONE (14:35)
[2023-02-24 15:07] LABS: Ref Lab Test Ordered Tickborne Disease AB; Reference Lab Name LABCORP
[2023-02-24 15:08] LABS: Reference Lab Name LABCORP
[2023-02-24 15:15] LABS: Ref Lab Test Ordered AFB Culture W/Rflx; Reference Lab Name LABCORP
[2023-02-24] MEDS ORDERED: fentaNYL PF 100 MCG/2 ML SYRINGE ONE (15:18)
[2023-02-24] MEDS ORDERED: Lidocaine 2% PF 5 ML VIAL ONE (15:28)
[2023-02-24] MEDS ORDERED: Bupivacaine HCl 0.5%/Epinephrine 1:200,000/PF 30 ml Vial ONE (15:28)
[2023-02-24] MEDS ORDERED: PROPOFOL 200 MG/20 ML VIAL ONE (16:00)
[2023-02-24] MEDS ORDERED: Lidocaine 1% PF 5 ML VIAL ONE (16:00)
[2023-02-24] MEDS ORDERED: PHENYLEPHRINE-NS 100 MCG/ML 10 ML SYRINGE ONE (16:00)
[2023-02-24] MEDS ORDERED: Ondansetron PF 4 MG/2 ML Vial ONE (16:00)
[2023-02-24] MEDS ORDERED: Dexamethasone 20 MG/5 ML VIAL ONE (16:00)
[2023-02-25] MEDS: Ondansetron PF 4 MG/2 ML Vial IVP PRN (03:41)
[2023-02-25] MEDS: Famotidine 20 MG TAB PO SCH (09:02)
[2023-02-25 09:14] VITALS: BP 119/77; TEMP 98.7
[2023-02-25 10:33] LABS: Reference Lab Name KARIUS
[2023-02-25 10:35] LABS: Ref Lab Test Ordered KARIUS TEST
[2023-02-26 08:43] LABS: CMV DNA-PCR Test Negative (Negative)
[2023-02-27 10:18] LABS: Brucella IgM Ab Negative (Negative)
[2023-02-27 14:13] LABS: Fungus Stain Final report (.)
[2023-02-28 16:15] LABS: QuantiFERON-TB Gold Plus Negative (Negative)
== END 2023-02-25 13:38 | disposition home or self-care (01) | DRG 854 ==
LOC: ERS 09:42 → T4-B 14:47
PROVIDERS: ADMIT Family Medicine; ATTEND Family Medicine
PROC: 0DBK8ZZ Excision of Ascending Colon, Via Natural or Artificial Opening Endoscopic (ICD-10-PCS; 2023-02-22)
PROC: 0DJD8ZZ Inspection of Lower Intestinal Tract, Via Natural or Artificial Opening Endoscopic (ICD-10-PCS; 2023-02-22)
PROC: 07B20ZX Excision of Left Neck Lymphatic, Open Approach, Diagnostic (ICD-10-PCS; principal; 2023-02-24)
DX: R50.9 Fever, unspecified (principal); E87.1 Hypo-osmolality and hyponatremia; N17.9 Acute kidney failure, unspecified; E87.20 Acidosis, unspecified; F12.90 Cannabis use, unspecified, uncomplicated; K52.9 Noninfective gastroenteritis and colitis, unspecified; G43.909 Migraine, unspecified, not intractable, without status migrainosus; F41.9 Anxiety disorder, unspecified; R26.81 Unsteadiness on feet; K64.4 Residual hemorrhoidal skin tags; K63.5 Polyp of colon; F17.200 Nicotine dependence, unspecified, uncomplicated; F10.90 Alcohol use, unspecified, uncomplicated; R59.1 Generalized enlarged lymph nodes; Z20.822 Contact with and (suspected) exposure to COVID-19; Z90.49 Acquired absence of other specified parts of digestive tract; Z98.891 History of uterine scar from previous surgery; Z90.710 Acquired absence of both cervix and uterus; Z90.721 Acquired absence of ovaries, unilateral; Z88.0 Allergy status to penicillin; Z88.5 Allergy status to narcotic agent; Z71.89 Other specified counseling
CPT/HCPCS: 36415; 36416; 70491; 71045; 74177; 80048; 80053; 80202; 80306; 81001; 83497; 83605; 83690; 83735; 84145; 84484; 85025; 85610; 85730; 86140; 86480; 86622; 86720; 86780; 87040; 87070; 87081; 87086; 87102; 87116; 87205; 87206; 87324; 87449; 87497; 87507; 87899; 88184; 88305; 88307; 88341; 88342; 93005; 94760; 96365; 96367; 96368; 96375; J0692; J0780; J1100; J2001; J2270; J2405; J2550; J2704; J3010; J3370; J3370-JW; J3490; J7050; Q0169; Q9967; S0028

== ENCOUNTER 2023-03-08 22:57 | Inpatient (IN) | payer SELFPAY ==
[2023-03-08] MEDS ORDERED: Promethazine HCl 25 MG/ML VIAL ONE (23:16)
[2023-03-08 23:41] LABS: #Monocytes 1.6 thou/uL (0.11-0.59); %Basophils 0.2 % (0.0-1.0); %Lymphocytes 5.8 % (21.0-51.0); %Monocytes 15.6 % (0.0-10.0); %Neutrophils 77.9 % (42.0-75.0); Hematocrit 28.6 % (36.0-47.0); Hemoglobin 9.2 g/dL (12.0-16.0); Mean Corpuscular HGB CONC 32.2 g/dL (32.0-36.0); Mean Corpuscular Hemoglobin 26.7 pg (27.0-31.0); Mean Corpuscular Volume 82.9 fl (78.0-98.0); Mean Platelet Volume 8.9 fL (7.4-10.4); Platelet Count 272 10x3/uL (130-400); RBC Distribution Width 20.5 % (11.5-14.5); Red Blood Cell (RBC) Count 3.45 mill/uL (4.20-5.40); White Blood Cell (WBC) Count 10.2 10x3/uL (4.8-10.8)
[2023-03-09 00:05] LABS: ALT (SGPT) 9 U/L (8-55); AST (SGOT) 12 U/L (5-34); Albumin 3.2 g/dL (3.5-5.0); Alkaline Phosphatase 85 U/L (40-110); Anion Gap 15 mmol/L (10-20); BUN (Urea Nitrogen) 20 mg/dL (9.8-20.1); Bilirubin, Total 1.5 mg/dL (0.2-1.2); Calc. Creatinine Clearance 0 mL/min (70-130); Calcium 8.1 mg/dL (7.8-10.44); Carbon Dioxide 17 mmol/L (22-29); Chloride 102 mmol/L (98-107); Estimated GFR 52; Globulin 4.5 g/dL (2.4-3.5); Glucose 118 mg/dL (70-105); Lipase 22 U/L (8-78); Potassium 3.4 mmol/L (3.5-5.1); Protein, Total 7.7 g/dL (6.0-8.3); Sodium 131 mmol/L (136-145)
[2023-03-09] MEDS ORDERED: Vancomycin 1 GM in Premix Bag 1 BAG IVPB SCH (00:45)
[2023-03-09] MEDS ORDERED: HYDROmorphone 0.5 MG/0.5 ML SYRINGE ONE (00:49)
[2023-03-09] MEDS ORDERED: Cefepime 2 GM VIAL ONE (00:49)
[2023-03-09] MEDS ORDERED: Acetaminophen 500 MG TAB ONE (00:49)
[2023-03-09 01:42] LABS: Bacteria/HPF None Seen HPF (None Seen); Bilirubin Negative (Negative); Blood, Urine 2+ (Negative); CAUTI Indications for Culture Fever or rigors; Clarity Clear (Clear); Glucose, Urine (Dipstick) Normal (Negative); Ketone, Urine Trace mg/dL (Negative); Leukocyte Negative Leu/uL (Negative); Nitrite Negative (Negative); Protein, Urine (Dipstick) 50 mg/dL (Neg-Trace); Squamous Epithelial 0-3 HPF (0-3); WBC/HPF 0-3 HPF (0-3); pH, Urine 5.5 (5.0-9.0)
[2023-03-09 01:43] LABS: Specific Gravity, Urine Greater than 1.060 (1.002-1.036)
[2023-03-09 01:44] LABS: Urine Culture Reflex No No
[2023-03-09] MEDS ORDERED: Ondansetron ODT 4 MG TAB PO PRN (01:51)
[2023-03-09] MEDS ORDERED: Calcium Carbonate 500 MG ChewTAB PO PRN (01:51)
[2023-03-09] MEDS ORDERED: Senokot S 8.6-50 MG TAB PO PRN (01:51)
[2023-03-09] MEDS ORDERED: Electrolyte Replacement Protocol 1 EACH FS PRN (01:53)
[2023-03-09] MEDS ORDERED: Potassium Chloride 20 MEQ TAB PO SCH (02:00)
[2023-03-09] MEDS: Ondansetron PF 4 MG/2 ML Vial IVP PRN ×3 (03:43→18:09)
[2023-03-09] MEDS: Promethazine HCl 12.5 MG in Sodium Chloride 0.9% 50 ML IVPB PRN ×3 (04:18→18:36)
[2023-03-09 06:07] LABS: #Monocytes 1.8 thou/uL (0.11-0.59); #Neutrophils 5.7 thou/uL (1.40-6.50); %Basophils 0.4 % (0.0-1.0); %Lymphocytes 6.6 % (21.0-51.0); %Monocytes 21.8 % (0.0-10.0); %Neutrophils 70.6 % (42.0-75.0); Hematocrit 30.3 % (36.0-47.0); Hemoglobin 9.5 g/dL (12.0-16.0); Manual Diff?? YES; Mean Corpuscular HGB CONC 31.4 g/dL (32.0-36.0); Mean Corpuscular Hemoglobin 26.4 pg (27.0-31.0); Mean Corpuscular Volume 84.2 fl (78.0-98.0); Mean Platelet Volume 8.9 fL (7.4-10.4); Platelet Count 263 10x3/uL (130-400); RBC Distribution Width 20.6 % (11.5-14.5); White Blood Cell (WBC) Count 8.1 10x3/uL (4.8-10.8)
[2023-03-09 06:33] LABS: Anion Gap 15 mmol/L (10-20); BUN (Urea Nitrogen) 21 mg/dL (9.8-20.1); Calc. Creatinine Clearance 58 mL/min (70-130); Carbon Dioxide 19 mmol/L (22-29); Chloride 102 mmol/L (98-107); Estimated GFR 63; Glucose 114 mg/dL (70-105); Potassium 3.8 mmol/L (3.5-5.1); Sodium 132 mmol/L (136-145)
[2023-03-09 07:39] LABS: Anisocytosis SLIGHT = 6-15 cells HPF (0-5); Band 3 % (5-11); Eosinophils 1 % (0-10); Hypochromia SLIGHT = 6-15 cells HPF (0-5); Large Platelets 4.3 % (0-5); Lymphocytes 4 % (21-51); Monocytes 14 % (0-10); Neutrophil 76 % (42-75); Platelet Adequacy Comment Platelets Normal; Polychromasia SLIGHT = 2-3 cells HPF (0-2); Spherocytes SLIGHT = 1-5 cells HPF (None Seen); Total Cell Count 117
[2023-03-09] MEDS ORDERED: Ibuprofen 600 MG TAB PO SCH (08:15)
[2023-03-09] MEDS: Famotidine 20 MG TAB PO SCH (08:47)
[2023-03-09] MEDS: Famotidine/PF 20 mg/2ml Vial SLOW IVP SCH (08:48)
[2023-03-09] MEDS: Cefepime 1 GM in Sodium Chloride 0.9% 100 ML IVPB SCH (12:50)
[2023-03-09] MEDS: Acetaminophen 325 MG TAB PO PRN (19:46)
[2023-03-09] MEDS ORDERED: Ibuprofen 200 MG TAB PO SCH (22:15)
[2023-03-09] MEDS ORDERED: Acetaminophen 325 MG TAB PO SCH (22:15)
[2023-03-09] MEDS ORDERED: Ondansetron PF 4 MG/2 ML Vial IVP SCH (22:15)
[2023-03-10] MEDS: Promethazine HCl 12.5 MG in Sodium Chloride 0.9% 50 ML IVPB PRN ×3 (00:45→18:46)
[2023-03-10] MEDS: Cefepime 1 GM in Sodium Chloride 0.9% 100 ML IVPB SCH ×2 (00:45→13:01)
[2023-03-10] MEDS: Ondansetron PF 4 MG/2 ML Vial IVP PRN ×3 (08:11→21:35)
[2023-03-10] MEDS: Famotidine 20 MG TAB PO SCH (08:20)
[2023-03-10] MEDS: Famotidine/PF 20 mg/2ml Vial SLOW IVP SCH (08:20)
[2023-03-10] MEDS: ALPRAZolam 0.25 MG TAB PO PRN ×2 (14:47→23:12)
[2023-03-10] MEDS: Acetaminophen 325 MG TAB PO PRN (18:45)
[2023-03-10] MEDS: Ibuprofen 200 MG TAB PO PRN (23:12)
[2023-03-11] MEDS: Promethazine HCl 12.5 MG in Sodium Chloride 0.9% 50 ML IVPB PRN ×2 (01:51→18:22)
[2023-03-11] MEDS: Cefepime 1 GM in Sodium Chloride 0.9% 100 ML IVPB SCH ×2 (01:51→12:36)
[2023-03-11 07:30] LABS: Hematocrit 30.4 % (36.0-47.0); Hemoglobin 9.8 g/dL (12.0-16.0); Manual Diff?? YES; Mean Corpuscular HGB CONC 32.2 g/dL (32.0-36.0); Mean Corpuscular Hemoglobin 25.9 pg (27.0-31.0); Mean Corpuscular Volume 80.4 fl (78.0-98.0); Mean Platelet Volume 9.1 fL (7.4-10.4); Platelet Count 296 10x3/uL (130-400); RBC Distribution Width 19.9 % (11.5-14.5); Red Blood Cell (RBC) Count 3.78 mill/uL (4.20-5.40); White Blood Cell (WBC) Count 7.2 10x3/uL (4.8-10.8)
[2023-03-11 07:32] LABS: Delete Auto Diff?? YES
[2023-03-11 08:02] LABS: ALT (SGPT) 12 U/L (8-55); AST (SGOT) 15 U/L (5-34); Albumin 3.2 g/dL (3.5-5.0); Alkaline Phosphatase 100 U/L (40-110); Anion Gap 14 mmol/L (10-20); BUN (Urea Nitrogen) 11 mg/dL (9.8-20.1); Bilirubin, Total 0.6 mg/dL (0.2-1.2); Calc. Creatinine Clearance 75 mL/min (70-130); Calcium 9.2 mg/dL (7.8-10.44); Carbon Dioxide 20 mmol/L (22-29); Chloride 104 mmol/L (98-107); Estimated GFR 85; Globulin 4.6 g/dL (2.4-3.5); Glucose 104 mg/dL (70-105); Potassium 2.7 mmol/L (3.5-5.1); Protein, Total 7.8 g/dL (6.0-8.3); Sodium 135 mmol/L (136-145); Uric Acid 4.1 mg/dL (2.6-6.0)
[2023-03-11 08:49] LABS: Band 14 % (5-11); Lymphocytes 18 % (21-51); Metamyelocyte 2 % (0-0); Monocytes 4 % (0-10); Neutrophil 62 % (42-75)
[2023-03-11 08:50] LABS: Platelet Adequacy Comment Platelets Normal; Polychromasia SLIGHT = 2-3 cells (100X) (0-2/hpf)
[2023-03-11] MEDS: Potassium Chloride 20 MEQ TAB PO SCH ×2 (09:44→17:13)
[2023-03-11] MEDS: Famotidine 20 MG TAB PO SCH ×2 (09:45→20:57)
[2023-03-11] MEDS: Folic Acid 1 MG TAB PO SCH (09:45)
[2023-03-11] MEDS: Famotidine/PF 20 mg/2ml Vial SLOW IVP SCH ×2 (09:45→20:39)
[2023-03-11] MEDS ORDERED: EPINEPHrine 1 MG/ML AMP ONE (12:47)
[2023-03-11] MEDS ORDERED: Bupivacaine 0.25% HCL 30 ML VIAL ONE (12:47)
[2023-03-11] MEDS ORDERED: Lidocaine 2% PF 5 ML VIAL ONE (12:48)
[2023-03-11] MEDS ORDERED: Midazolam HCl 2 mg/2 ml Vial ONE (12:52)
[2023-03-11] MEDS ORDERED: fentaNYL PF 100 MCG/2 ML SYRINGE ONE (12:53)
[2023-03-11] MEDS ORDERED: Ketamine 50 MG/ML (10ML VIAL) ONE (12:53)
[2023-03-11] MEDS ORDERED: Propofol 500 MG/50 ML VIAL ONE (12:53)
[2023-03-11] MEDS ORDERED: Ondansetron PF 4 MG/2 ML Vial ONE (13:03)
[2023-03-11] MEDS ORDERED: PROPOFOL 200 MG/20 ML VIAL ONE (13:03)
[2023-03-11] MEDS ORDERED: Lidocaine 1% PF 5 ML VIAL ONE (13:03)
[2023-03-11] MEDS ORDERED: Ondansetron HCl/PF 4 MG/2 ML Vial IVP PRN (14:08)
[2023-03-11] MEDS ORDERED: Promethazine HCl 25 MG/ML VIAL IM PRN (14:08)
[2023-03-11] MEDS ORDERED: fentaNYL 50 mcg/mL 1 mL Vial ONE ×2 (14:23→15:08)
[2023-03-11] MEDS: Morphine 2 MG/ML VIAL SLOW IVP PRN ×2 (17:07→20:57)
[2023-03-11] MEDS: Acetaminophen 325 MG TAB PO PRN (17:13)
[2023-03-11] MEDS: ALPRAZolam 0.25 MG TAB PO PRN (22:06)
[2023-03-12] MEDS: Acetaminophen 325 MG TAB PO PRN (00:09)
[2023-03-12] MEDS: Morphine 2 MG/ML VIAL SLOW IVP PRN ×2 (00:58→11:50)
[2023-03-12] MEDS: Cefepime 1 GM in Sodium Chloride 0.9% 100 ML IVPB SCH (00:59)
[2023-03-12] MEDS: Ibuprofen 200 MG TAB PO PRN ×2 (01:14→19:14)
[2023-03-12] MEDS: ALPRAZolam 0.25 MG TAB PO PRN (03:57)
[2023-03-12 05:06] LABS: #Eosinphils 0.1 thou/uL (0.0-0.7); #Monocytes 0.9 thou/uL (0.11-0.59); #Neutrophils 4.3 thou/uL (1.40-6.50); %Basophils 0.3 % (0.0-1.0); %Lymphocytes 12.3 % (21.0-51.0); %Monocytes 15.4 % (0.0-10.0); %Neutrophils 70.5 % (42.0-75.0); Hematocrit 28.1 % (36.0-47.0); Mean Corpuscular Hemoglobin 25.9 pg (27.0-31.0); Mean Corpuscular Volume 80.7 fl (78.0-98.0); Platelet Count 300 10x3/uL (130-400); RBC Distribution Width 19.9 % (11.5-14.5); Red Blood Cell (RBC) Count 3.48 mill/uL (4.20-5.40)
[2023-03-12 05:34] LABS: ALT (SGPT) 12 U/L (8-55); AST (SGOT) 15 U/L (5-34); Albumin 3.1 g/dL (3.5-5.0); Alkaline Phosphatase 111 U/L (40-110); Anion Gap 13 mmol/L (10-20); BUN (Urea Nitrogen) 10 mg/dL (9.8-20.1); Bilirubin, Total 0.4 mg/dL (0.2-1.2); Calc. Creatinine Clearance 85 mL/min (70-130); Calcium 8.4 mg/dL (7.8-10.44); Carbon Dioxide 19 mmol/L (22-29); Chloride 104 mmol/L (98-107); Estimated GFR 99; Globulin 4.1 g/dL (2.4-3.5); Glucose 105 mg/dL (70-105); Potassium 3.6 mmol/L (3.5-5.1); Protein, Total 7.2 g/dL (6.0-8.3); Sodium 132 mmol/L (136-145)
[2023-03-12] MEDS: Folic Acid 1 MG TAB PO SCH (08:14)
[2023-03-12] MEDS: Allopurinol 300 MG TAB PO SCH (08:14)
[2023-03-12] MEDS: Famotidine/PF 20 mg/2ml Vial SLOW IVP SCH (08:15)
[2023-03-12] MEDS: Famotidine 20 MG TAB PO SCH ×2 (08:15→20:53)
[2023-03-12] MEDS: Promethazine HCl 12.5 MG in Sodium Chloride 0.9% 50 ML IVPB PRN ×2 (08:16→21:21)
[2023-03-12] MEDS ORDERED: PALONOSETRON HCL 0.05 MG/ML 5 ML VIAL IVP SCH (12:30)
[2023-03-12] MEDS ORDERED: diphenhydrAMINE 25 MG CAP PO SCH (12:30)
[2023-03-12] MEDS ORDERED: SODIUM CHLORIDE 0.9% IVPB SCH ×5 (13:30→14:00)
[2023-03-12] MEDS ORDERED: BLEOMYCIN SULFATE IVPB SCH ×3 (13:30→14:00)
[2023-03-12] MEDS ORDERED: DOXORUBICIN IVPB SCH (14:00)
[2023-03-12] MEDS ORDERED: Fosaprepitant Dimeglumine 150 MG in Sodium Chloride 0.9% 250 ML 150 ML IVPB SCH (14:00)
[2023-03-12] MEDS ORDERED: VINBLASTINE SULFATE IVPB SCH (14:00)
[2023-03-12] MEDS ORDERED: SODIUM CHLORIDE 0.9% IV SCH (14:00)
[2023-03-12] MEDS ORDERED: DACARBAZINE IV SCH (14:00)
[2023-03-13 06:09] LABS: #Monocytes 0.2 thou/uL (0.11-0.59); #Neutrophils 7.9 thou/uL (1.40-6.50); %Basophils 0.1 % (0.0-1.0); %Lymphocytes 3.8 % (21.0-51.0); %Monocytes 2.1 % (0.0-10.0); %Neutrophils 93.5 % (42.0-75.0); Hematocrit 29.5 % (36.0-47.0); Hemoglobin 9.5 g/dL (12.0-16.0); Mean Corpuscular HGB CONC 32.2 g/dL (32.0-36.0); Mean Corpuscular Hemoglobin 26.3 pg (27.0-31.0); Mean Corpuscular Volume 81.7 fl (78.0-98.0); Mean Platelet Volume 9.6 fL (7.4-10.4); Platelet Count 290 10x3/uL (130-400); RBC Distribution Width 19.6 % (11.5-14.5); Red Blood Cell (RBC) Count 3.61 mill/uL (4.20-5.40); White Blood Cell (WBC) Count 8.5 10x3/uL (4.8-10.8)
[2023-03-13 06:34] LABS: ALT (SGPT) 12 U/L (8-55); AST (SGOT) 15 U/L (5-34); Albumin 3.2 g/dL (3.5-5.0); Alkaline Phosphatase 117 U/L (40-110); Anion Gap 16 mmol/L (10-20); BUN (Urea Nitrogen) 9 mg/dL (9.8-20.1); Bilirubin, Total 0.3 mg/dL (0.2-1.2); Calc. Creatinine Clearance 85 mL/min (70-130); Calcium 8.9 mg/dL (7.8-10.44); Carbon Dioxide 17 mmol/L (22-29); Chloride 104 mmol/L (98-107); Estimated GFR 97; Globulin 4.4 g/dL (2.4-3.5); Glucose 292 mg/dL (70-105); Potassium 3.7 mmol/L (3.5-5.1); Protein, Total 7.6 g/dL (6.0-8.3); Sodium 133 mmol/L (136-145); Uric Acid 2.5 mg/dL (2.6-6.0)
[2023-03-13] MEDS: ALPRAZolam 0.25 MG TAB PO PRN ×2 (08:23→15:41)
[2023-03-13] MEDS: Allopurinol 300 MG TAB PO SCH (08:23)
[2023-03-13] MEDS: Folic Acid 1 MG TAB PO SCH (08:23)
[2023-03-13] MEDS: Famotidine 20 MG TAB PO SCH (08:23)
[2023-03-13] MEDS: Promethazine HCl 12.5 MG in Sodium Chloride 0.9% 50 ML IVPB PRN (08:25)
[2023-03-13 09:32] VITALS: TEMP 97.4
[2023-03-13 11:12] VITALS: BMI 27.6
[2023-03-13 16:13] VITALS: BP 154/81
== END 2023-03-13 16:37 | disposition home or self-care (01) | DRG 824 ==
LOC: ERS 22:57 → T4-B 03-09 01:44 → OBSVTOIN 03-10 14:42 → SURG A 03-11 11:42 → SJJU 03-11 15:29
PROVIDERS: ADMIT Student in an Organized Health Care Education/Training Program; ATTEND Internal Medicine
PROC: 0JH60WZ Insertion of Totally Implantable Vascular Access Device into Chest Subcutaneous Tissue and Fascia, Open Approach (ICD-10-PCS; principal; 2023-03-11)
PROC: 02HV33Z Insertion of Infusion Device into Superior Vena Cava, Percutaneous Approach (ICD-10-PCS; 2023-03-11)
PROC: B5181ZA Fluoroscopy of Superior Vena Cava using Low Osmolar Contrast, Guidance (ICD-10-PCS; 2023-03-11)
PROC: B548ZZA Ultrasonography of Superior Vena Cava, Guidance (ICD-10-PCS; 2023-03-11)
PROC: 3E043XZ Introduction of Vasopressor into Central Vein, Percutaneous Approach (ICD-10-PCS; 2023-03-11)
PROC: 3E03305 Introduction of Other Antineoplastic into Peripheral Vein, Percutaneous Approach (ICD-10-PCS; 2023-03-12)
DX: C81.10 Nodular sclerosis Hodgkin lymphoma, unspecified site (principal); E87.1 Hypo-osmolality and hyponatremia; G43.909 Migraine, unspecified, not intractable, without status migrainosus; F41.9 Anxiety disorder, unspecified; K21.9 Gastro-esophageal reflux disease without esophagitis; D64.9 Anemia, unspecified; Z88.0 Allergy status to penicillin; Z88.5 Allergy status to narcotic agent; Z79.899 Other long term (current) drug therapy; Z90.710 Acquired absence of both cervix and uterus; Z90.721 Acquired absence of ovaries, unilateral; Z90.49 Acquired absence of other specified parts of digestive tract; Z82.49 Family history of ischemic heart disease and other diseases of the circulatory system; Z80.0 Family history of malignant neoplasm of digestive organs; Z88.8 Allergy status to other drugs, medicaments and biological substances
CPT/HCPCS: 36415; 71045; 74177; 80048; 80053; 81001; 83605; 83615; 83690; 84484; 84550; 85025; 87040; 93005; 93306; 96361; 96365; 96372; 96375; 96376; C1788; G0378; J0171; J0692; J1100; J1170; J1453; J1642; J1650; J2001; J2250; J2272; J2405; J2469; J2550; J2704; J3010; J3490; J7030; J9000; J9040; J9130; J9360; Q9967; S0020; S0028

== ENCOUNTER 2023-04-01 08:45 | Outpatient (CLI) | payer OTHER | END 2023-04-01 08:46 | disposition home or self-care (01) | LOC: PET 08:45 | PROVIDERS: ATTEND Internal Medicine Hematology & Oncology | DX: C81.12 Nodular sclerosis Hodgkin lymphoma, intrathoracic lymph nodes (principal) | CPT/HCPCS: 78815; A9552 ==

== ENCOUNTER 2023-04-07 21:28 | Emergency (ER) | payer SELFPAY ==
[2023-04-07] MEDS ORDERED: diphenhydrAMINE 50 MG/ML VIAL ONE (23:01)
[2023-04-07] MEDS ORDERED: Famotidine/PF 20 mg/2ml Vial ONE (23:01)
[2023-04-07] MEDS ORDERED: Ondansetron PF 4 MG/2 ML Vial ONE (23:01)
[2023-04-07 23:20] LABS: #Basophils 0.1 thou/uL (0.0-0.2); #Eosinphils 0.3 thou/uL (0.0-0.7); #Monocytes 0.6 thou/uL (0.11-0.59); #Neutrophils 6.1 thou/uL (1.40-6.50); %Basophils 0.7 % (0.0-1.0); %Eosinophils 4.2 % (0.0-10.0); %Lymphocytes 10.1 % (21.0-51.0); %Neutrophils 76.5 % (42.0-75.0); Hematocrit 34.3 % (36.0-47.0); Hemoglobin 11.3 g/dL (12.0-16.0); Mean Corpuscular HGB CONC 32.9 g/dL (32.0-36.0); Mean Corpuscular Volume 81.9 fl (78.0-98.0); Mean Platelet Volume 9.4 fL (7.4-10.4); Platelet Count 272 10x3/uL (130-400); RBC Distribution Width 21.4 % (11.5-14.5); Red Blood Cell (RBC) Count 4.19 mill/uL (4.20-5.40)
[2023-04-07 23:42] LABS: ALT (SGPT) 54 U/L (8-55); AST (SGOT) 43 U/L (5-34); Albumin 4.1 g/dL (3.5-5.0); Alkaline Phosphatase 94 U/L (40-110); Anion Gap 13 mmol/L (10-20); BUN (Urea Nitrogen) 11 mg/dL (9.8-20.1); Bilirubin, Total 0.3 mg/dL (0.2-1.2); Calc. Creatinine Clearance 0 mL/min (70-130); Calcium 9.4 mg/dL (7.8-10.44); Carbon Dioxide 23 mmol/L (22-29); Chloride 106 mmol/L (98-107); Estimated GFR 89; Globulin 3.6 g/dL (2.4-3.5); Glucose 129 mg/dL (70-105); Potassium 3.7 mmol/L (3.5-5.1); Protein, Total 7.7 g/dL (6.0-8.3); Sodium 138 mmol/L (136-145)
[2023-04-07 23:47] LABS: Troponin I Less than 0.010 ng/mL (< 0.028)
[2023-04-08] MEDS ORDERED: Promethazine HCl 25 MG/ML VIAL ONE (00:41)
[2023-04-08] MEDS ORDERED: Ketorolac Tromethamine 30 MG/ML VIAL ONE (01:33)
[2023-04-08] MEDS ORDERED: hydrOXYzine 25 MG TAB ONE (02:00)
[2023-04-08 03:14] LABS: Troponin I Less than 0.010 ng/mL (< 0.028)
== END 2023-04-08 03:54 | disposition home or self-care (01) ==
LOC: ERS 21:28
DX: R07.9 Chest pain, unspecified (principal); M79.602 Pain in left arm; R21 Rash and other nonspecific skin eruption
CPT/HCPCS: 36415; 71045; 71275; 80053; 83880; 84484; 85025; 85379; 93005; 96374; 96375; J1200; J1885; J2405; J2550; Q9967; S0028

== ENCOUNTER 2023-04-15 10:14 | Day surgery (SDC) | payer SELFPAY ==
[~2023-04-15 10:14] MED LIST changes: +BRENTUXIMAB VEDOTIN IV SCH; +DACARBAZINE IV SCH; +DOXORUBICIN IVPB SCH; +Dexamethasone Sod Phosphate 10 MG, Ondansetron 2MG/ML MDV 10 MG in Sodium Chloride 0.9%... IVPB SCH; -Iopamidol-370 76% 500 ML MDV (1 ML CHARGE) ONE; +Ondansetron HCl/PF 10 MG in Sodium Chloride 0.9% 50 ML IVPB SCH; +PEGFILGRASTIM-JMDB 6 MG/0.6 ML SYRINGE SQ SCH; +SODIUM CHLORIDE 0.9% IV SCH; +SODIUM CHLORIDE 0.9% IVPB SCH; +VINBLASTINE SULFATE IVPB SCH
[2023-04-15 10:54] VITALS: BP 143/69; TEMP 98.5
== END 2023-04-15 17:39 | disposition home or self-care (01) ==
LOC: ONC/OP 10:14
PROVIDERS: ATTEND Internal Medicine Hematology & Oncology
DX: C81.12 Nodular sclerosis Hodgkin lymphoma, intrathoracic lymph nodes (principal)
CPT/HCPCS: 96367; 96413; 96415; 96417; J1100; J1453; J1642; J2405; J3490; J7030; J9000; J9042; J9130; J9360

== ENCOUNTER 2023-04-16 12:55 | Day surgery (SDC) | payer SELFPAY ==
[~2023-04-16 12:55] MED LIST changes: -BRENTUXIMAB VEDOTIN IV SCH; -DACARBAZINE IV SCH; -DOXORUBICIN IVPB SCH; -Dexamethasone Sod Phosphate 10 MG, Ondansetron 2MG/ML MDV 10 MG in Sodium Chloride 0.9%... IVPB SCH; -Ondansetron HCl/PF 10 MG in Sodium Chloride 0.9% 50 ML IVPB SCH; -SODIUM CHLORIDE 0.9% IV SCH; -SODIUM CHLORIDE 0.9% IVPB SCH; -VINBLASTINE SULFATE IVPB SCH
[2023-04-16] MEDS ORDERED: PEGFILGRASTIM-JMDB 6 MG/0.6 ML SYRINGE ONE (13:01)
[2023-04-16 13:47] VITALS: TEMP 98.4
== END 2023-04-16 13:48 | disposition home or self-care (01) ==
LOC: ONC/OP 12:55
PROVIDERS: ATTEND Internal Medicine Hematology & Oncology
DX: C81.10 Nodular sclerosis Hodgkin lymphoma, unspecified site (principal); Z88.5 Allergy status to narcotic agent; Z88.0 Allergy status to penicillin
CPT/HCPCS: 96372; Q5108

== ENCOUNTER 2023-05-04 17:37 | Inpatient (IN) | payer OTHER ==
[~2023-05-04 17:37] MED LIST changes: +Iopamidol-370 76% 500 ML MDV (1 ML CHARGE) ONE; -PEGFILGRASTIM-JMDB 6 MG/0.6 ML SYRINGE SQ SCH
[2023-05-04] MEDS ORDERED: Ondansetron PF 4 MG/2 ML Vial ONE (18:51)
[2023-05-04] MEDS ORDERED: Morphine 4 MG/ML VIAL ONE (18:51)
[2023-05-04 18:55] LABS: #Basophils 0.1 thou/uL (0.0-0.2); #Eosinphils 0.1 thou/uL (0.0-0.7); #Monocytes 0.3 thou/uL (0.11-0.59); #Neutrophils 3.5 thou/uL (1.40-6.50); %Basophils 1.7 % (0.0-1.0); %Eosinophils 1.7 % (0.0-10.0); %Lymphocytes 15.2 % (21.0-51.0); %Monocytes 5.4 % (0.0-10.0); %Neutrophils 75.1 % (42.0-75.0); Hematocrit 33.3 % (36.0-47.0); Hemoglobin 11.6 g/dL (12.0-16.0); Mean Corpuscular HGB CONC 34.8 g/dL (32.0-36.0); Mean Corpuscular Volume 83.3 fl (78.0-98.0); Mean Platelet Volume 10.4 fL (7.4-10.4); Platelet Count 192 10x3/uL (130-400); RBC Distribution Width 21.3 % (11.5-14.5); White Blood Cell (WBC) Count 4.7 10x3/uL (4.8-10.8)
[2023-05-04 18:58] LABS: Delete Auto Diff?? NO; Manual Diff?? YES
[2023-05-04 19:03] LABS: Bilirubin Negative (Negative); Blood, Urine Negative (Negative); CAUTI Indications for Culture Pelvic or flank pain; Clarity Clear (Clear); Glucose, Urine (Dipstick) Greater than 1000 mg/dL (Negative); Ketone, Urine 10 mg/dL (Negative); Leukocyte 75 Leu/uL (Negative); Nitrite Negative (Negative); Protein, Urine (Dipstick) Negative (Neg-Trace); RBC/HPF 0-3 HPF (0-3); Specific Gravity, Urine 1.032 (1.002-1.036); Squamous Epithelial 0-3 HPF (0-3); Urobilinogen Normal mg/dL (Less than 2); Yeast-Budding 1+ HPF (None Seen); pH, Urine 5.5 (5.0-9.0)
[2023-05-04 19:04] LABS: Bacteria/HPF 1+ HPF (None Seen)
[2023-05-04 19:05] LABS: Urine Culture Reflex No No
[2023-05-04 19:20] LABS: ALT (SGPT) 64 U/L (8-55); AST (SGOT) 40 U/L (5-34); Albumin 4.2 g/dL (3.5-5.0); Alkaline Phosphatase 179 U/L (40-110); Anion Gap 20 mmol/L (10-20); BUN (Urea Nitrogen) 10 mg/dL (9.8-20.1); Bilirubin, Total 0.4 mg/dL (0.2-1.2); Calc. Creatinine Clearance 0 mL/min (70-130); Calcium 9.6 mg/dL (7.8-10.44); Carbon Dioxide 18 mmol/L (22-29); Chloride 98 mmol/L (98-107); Estimated GFR 82; Globulin 3.2 g/dL (2.4-3.5); Lipase 51 U/L (8-78); Magnesium 1.8 mg/dL (1.6-2.6); Potassium 3.8 mmol/L (3.5-5.1); Protein, Total 7.4 g/dL (6.0-8.3); Sodium 132 mmol/L (136-145)
[2023-05-04 19:26] LABS: Glucose 545 mg/dL (70-105)
[2023-05-04 19:40] LABS: Anisocytosis SLIGHT = 6-15 cells HPF (0-5); Band 26 % (5-11); CellaVision Operator ID LAB.MJL; Dohle Bodies SLIGHT; Eosinophils 2 % (0-10); Large Platelets 3.1 % (0-5); Lymphocytes 12 % (21-51); Macrocytosis SLIGHT = 6-15 cells HPF (0-5); Metamyelocyte 1 % (0-0); Monocytes 3 % (0-10); Neutrophil 53 % (42-75); Platelet Adequacy Comment Platelets Normal; Polychromasia SLIGHT = 2-3 cells HPF (0-2); Tear Drops SLIGHT = 2-5 cells HPF (0-1); Total Cell Count 98
[2023-05-04 20:04] LABS: Actual Bicarbonate (HCO3v) 21.5 mEq/L (22-28); Base Excess -2.1 mEq/L (-2.0 to +3.0); Calcium, Ionized (venous) 1.11 mmol/L (1.16-1.32); Chloride (VBG) 100 mmol/L (98-106); Hematocrit-VBG 36 % (36.0-47.0); Hemoglobin (Hb) 12.1 g/dL (11.7-16.0); Potassium (VBG) 4.03 mmol/L (3.70-5.30); Sodium 134.1 mmol/L (133-146); pH (venous) 7.429 (7.32-7.43)
[2023-05-04 20:20] LABS: Troponin I Less than 0.010 ng/mL (< 0.028)
[2023-05-04] MEDS ORDERED: HYDROmorphone 0.5 MG/0.5 ML SYRINGE ONE (20:35)
[2023-05-04] MEDS ORDERED: Dextrose 50% Abboject 50 ML SYRINGE SLOW IVP PRN (21:47)
[2023-05-04] MEDS ORDERED: Dextrose 5% in Water 1,000 ML IV PRN (21:47)
[2023-05-04] MEDS ORDERED: Glucagon 1 MG/ML KIT IM PRN (21:47)
[2023-05-04] MEDS ORDERED: HumaLOG 300 UNITS/3 ML VIAL SC PRN (21:47)
[2023-05-04] MEDS ORDERED: Acetaminophen 650 MG Suppository PR PRN (21:48)
[2023-05-04] MEDS ORDERED: Acetaminophen 325 MG TAB PO PRN (21:48)
[2023-05-04] MEDS ORDERED: Ondansetron ODT 4 MG TAB PO PRN (21:48)
[2023-05-04] MEDS ORDERED: Fluconazole 100 MG TAB PO SCH (22:00)
[2023-05-04 23:17] LABS: Lactic Acid 1.7 mmol/L (0.5-2.2)
[2023-05-04] MEDS: HumaLOG 300 UNITS/3 ML VIAL SC PRN (23:20)
[2023-05-05 01:05] VITALS: BMI 29.5
[2023-05-05] MEDS: Ondansetron PF 4 MG/2 ML Vial IVP PRN ×3 (01:31→18:19)
[2023-05-05] MEDS: HYDROcodone/Acetaminophen 10/325 mg Tablet PO PRN ×5 (04:31→22:45)
[2023-05-05 05:14] LABS: Hematocrit 29.3 % (36.0-47.0); Mean Corpuscular HGB CONC 34.1 g/dL (32.0-36.0); Mean Corpuscular Hemoglobin 28.7 pg (27.0-31.0); Mean Platelet Volume 9.9 fL (7.4-10.4); Platelet Count 172 10x3/uL (130-400); RBC Distribution Width 21.6 % (11.5-14.5); Red Blood Cell (RBC) Count 3.49 mill/uL (4.20-5.40); White Blood Cell (WBC) Count 3.7 10x3/uL (4.8-10.8)
[2023-05-05 05:16] LABS: Delete Auto Diff?? YES; Manual Diff?? YES
[2023-05-05 05:23] LABS: Hemoglobin A1c 8.4 % (4.0-6.0)
[2023-05-05 05:41] LABS: Band 48 % (5-11); CellaVision Operator ID LAB.CLH1; Eosinophils 3 % (0-10); Hypochromia SLIGHT = 6-15 cells HPF (0-5); Lymphocytes 12 % (21-51); Metamyelocyte 1 % (0-0); Monocytes 2 % (0-10); Neutrophil 34 % (42-75); Platelet Adequacy Comment Platelets Normal; Total Cell Count 100
[2023-05-05 05:42] LABS: ALT (SGPT) 53 U/L (8-55); AST (SGOT) 34 U/L (5-34); Albumin 3.5 g/dL (3.5-5.0); Alkaline Phosphatase 138 U/L (40-110); Anion Gap 15 mmol/L (10-20); BUN (Urea Nitrogen) 5 mg/dL (9.8-20.1); Bilirubin, Total 0.5 mg/dL (0.2-1.2); Calc. Creatinine Clearance 96 mL/min (70-130); Calcium 8.7 mg/dL (7.8-10.44); Carbon Dioxide 20 mmol/L (22-29); Chloride 103 mmol/L (98-107); Estimated GFR 102; Globulin 2.4 g/dL (2.4-3.5); Glucose 314 mg/dL (70-105); Potassium 3.5 mmol/L (3.5-5.1); Protein, Total 5.9 g/dL (6.0-8.3); Sodium 134 mmol/L (136-145)
[2023-05-05 06:02] LABS: HBCM Index 0.06 S/CO (0-0.79); HBSAg Index 0.27 S/CO (0-0.99); Hep A IgM AB Non-Reactive S/CO (NonReactive); Hep A IgM S/CO 0.51 S/CO (0-0.79); Hep B Surf Ag Non-Reactive S/CO (NonReactive); Hep C IgG Ab Non-Reactive S/CO (NonReactive); Hep C Index 0.05 S/CO (0-0.79); Hepatitis B Core IgM Abs Non-Reactive S/CO (NonReactive)
[2023-05-05] MEDS ORDERED: Insulin Glargine 30 UNITS/0.3 ML VIAL SC SCH (09:00)
[2023-05-05] MEDS: HumaLOG 300 UNITS/3 ML VIAL SC PRN ×3 (13:59→21:45)
[2023-05-05] MEDS ORDERED: Dicyclomine 10 MG CAP PO PRN (15:23)
[2023-05-05] MEDS: Sodium Chloride 0.9% 1,000 ML IV SCH (17:19)
[2023-05-05] MEDS ORDERED: HYDROcodone/Acetaminophen 10/325 mg Tablet PO PRN (22:19)
[2023-05-05] MEDS: Promethazine HCl 12.5 MG in Sodium Chloride 0.9% 50 ML IVPB PRN (23:15)
[2023-05-06] MEDS: Sodium Chloride 0.9% 1,000 ML IV SCH ×3 (02:40→20:37)
[2023-05-06] MEDS: HYDROcodone/Acetaminophen 10/325 mg Tablet PO PRN ×2 (04:49→09:34)
[2023-05-06] MEDS: Promethazine HCl 12.5 MG in Sodium Chloride 0.9% 50 ML IVPB PRN ×3 (04:57→20:38)
[2023-05-06] MEDS: HumaLOG 300 UNITS/3 ML VIAL SC PRN ×4 (06:19→21:47)
[2023-05-06] MEDS: Insulin Glargine 30 UNITS/0.3 ML VIAL SC SCH (09:37)
[2023-05-06] MEDS ORDERED: Polyethylene Glycol 3350 17 GM Packet PO PRN (12:09)
[2023-05-06 13:38] LABS: ALT (SGPT) 86 U/L (8-55); AST (SGOT) 77 U/L (5-34); Albumin 3.7 g/dL (3.5-5.0); Alkaline Phosphatase 142 U/L (40-110); Anion Gap 14 mmol/L (10-20); BUN (Urea Nitrogen) Less than 4 mg/dL (9.8-20.1); Bilirubin, Total 0.4 mg/dL (0.2-1.2); Calc. Creatinine Clearance 89 mL/min (70-130); Calcium 8.9 mg/dL (7.8-10.44); Carbon Dioxide 20 mmol/L (22-29); Chloride 99 mmol/L (98-107); Estimated GFR 96; Globulin 2.6 g/dL (2.4-3.5); Glucose 298 mg/dL (70-105); Potassium 3.4 mmol/L (3.5-5.1); Protein, Total 6.3 g/dL (6.0-8.3); Sodium 130 mmol/L (136-145)
[2023-05-06] MEDS ORDERED: Fluconazole 100 MG TAB PO SCH (15:00)
[2023-05-06] MEDS ORDERED: diphenhydrAMINE 25 MG CAP PO PRN (16:22)
[2023-05-06] MEDS: Bisacodyl 5 MG TAB PO PRN (18:42)
[2023-05-06] MEDS ORDERED: Morphine 2 MG/ML VIAL SLOW IVP SCH (20:00)
[2023-05-06] MEDS: Senokot S 8.6-50 MG TAB PO SCH (20:11)
[2023-05-06] MEDS: Nitrofurantoin Monohyd/M-Cryst 100 MG CAP PO SCH (20:11)
[2023-05-07] MEDS ORDERED: Morphine 2 MG/ML VIAL SLOW IVP SCH (01:15)
[2023-05-07] MEDS: Promethazine HCl 12.5 MG in Sodium Chloride 0.9% 50 ML IVPB PRN ×3 (01:37→20:24)
[2023-05-07 05:34] LABS: Hematocrit 31.2 % (36.0-47.0); Hemoglobin 10.5 g/dL (12.0-16.0); Mean Corpuscular HGB CONC 33.7 g/dL (32.0-36.0); Mean Corpuscular Hemoglobin 27.9 pg (27.0-31.0); Mean Corpuscular Volume 82.8 fl (78.0-98.0); Mean Platelet Volume 9.7 fL (7.4-10.4); Platelet Count 223 10x3/uL (130-400); Red Blood Cell (RBC) Count 3.77 mill/uL (4.20-5.40); White Blood Cell (WBC) Count 7.4 10x3/uL (4.8-10.8)
[2023-05-07 05:45] LABS: Delete Auto Diff?? YES
[2023-05-07] MEDS: HYDROcodone/Acetaminophen 10/325 mg Tablet PO PRN ×3 (05:45→20:03)
[2023-05-07] MEDS: HumaLOG 300 UNITS/3 ML VIAL SC PRN ×4 (05:46→21:51)
[2023-05-07 05:59] LABS: ALT (SGPT) 76 U/L (8-55); AST (SGOT) 48 U/L (5-34); Albumin 3.6 g/dL (3.5-5.0); Alkaline Phosphatase 136 U/L (40-110); Anion Gap 15 mmol/L (10-20); BUN (Urea Nitrogen) Less than 4 mg/dL (9.8-20.1); Bilirubin, Total 0.4 mg/dL (0.2-1.2); Calc. Creatinine Clearance 100 mL/min (70-130); Calcium 8.8 mg/dL (7.8-10.44); Carbon Dioxide 22 mmol/L (22-29); Chloride 102 mmol/L (98-107); Estimated GFR 103; Globulin 2.4 g/dL (2.4-3.5); Glucose 268 mg/dL (70-105); Potassium 3.5 mmol/L (3.5-5.1); Sodium 135 mmol/L (136-145); Uric Acid 4.5 mg/dL (2.6-6.0)
[2023-05-07 06:06] LABS: CellaVision Operator ID LAB.CLH1; Hypochromia SLIGHT = 6-15 cells HPF (0-5); Large Platelets 7.1 % (0-5); Platelet Adequacy Comment Platelets Normal; Polychromasia SLIGHT = 2-3 cells HPF (0-2)
[2023-05-07] MEDS: Sodium Chloride 0.9% 1,000 ML IV SCH (09:04)
[2023-05-07] MEDS: Insulin Glargine 30 UNITS/0.3 ML VIAL SC SCH (09:32)
[2023-05-07] MEDS: Polyethylene Glycol 3350 17 GM Packet PO SCH (09:32)
[2023-05-07] MEDS: Nitrofurantoin Monohyd/M-Cryst 100 MG CAP PO SCH ×2 (09:32→20:04)
[2023-05-07] MEDS: Senokot S 8.6-50 MG TAB PO SCH ×2 (09:32→20:04)
[2023-05-07] MEDS: Bisacodyl 5 MG TAB PO PRN (11:01)
[2023-05-07] MEDS ORDERED: Bisacodyl 10 MG SUPP PR SCH (11:45)
[2023-05-08] MEDS: Promethazine HCl 12.5 MG in Sodium Chloride 0.9% 50 ML IVPB PRN ×4 (01:21→20:37)
[2023-05-08] MEDS: HYDROcodone/Acetaminophen 10/325 mg Tablet PO PRN ×5 (01:28→23:17)
[2023-05-08] MEDS: HumaLOG 300 UNITS/3 ML VIAL SC PRN ×4 (06:31→20:43)
[2023-05-08] MEDS ORDERED: Naloxegol 12.5 MG TAB PO SCH (08:45)
[2023-05-08] MEDS: Nitrofurantoin Monohyd/M-Cryst 100 MG CAP PO SCH ×2 (08:59→20:37)
[2023-05-08] MEDS: Polyethylene Glycol 3350 17 GM Packet PO SCH (08:59)
[2023-05-08] MEDS: Insulin Glargine 30 UNITS/0.3 ML VIAL SC SCH (08:59)
[2023-05-08] MEDS: Senokot S 8.6-50 MG TAB PO SCH ×2 (08:59→20:37)
[2023-05-08] MEDS: Bisacodyl 5 MG TAB PO PRN (12:32)
[2023-05-08] MEDS ORDERED: Bisacodyl 10 MG SUPP PR SCH (17:15)
[2023-05-08] MEDS ORDERED: Calcium Carbonate 500 MG ChewTAB PO PRN (18:07)
[2023-05-09] MEDS: HYDROcodone/Acetaminophen 10/325 mg Tablet PO PRN ×2 (04:50→09:29)
[2023-05-09] MEDS: Promethazine HCl 12.5 MG in Sodium Chloride 0.9% 50 ML IVPB PRN ×2 (05:35→10:53)
[2023-05-09] MEDS: Insulin Glargine 30 UNITS/0.3 ML VIAL SC SCH (09:19)
[2023-05-09] MEDS: Nitrofurantoin Monohyd/M-Cryst 100 MG CAP PO SCH (09:19)
[2023-05-09] MEDS: Senokot S 8.6-50 MG TAB PO SCH (09:20)
[2023-05-09] MEDS: Polyethylene Glycol 3350 17 GM Packet PO SCH (09:22)
[2023-05-09 10:40] VITALS: BP 143/87; TEMP 98.6
[2023-05-09] MEDS: HumaLOG 300 UNITS/3 ML VIAL SC PRN (12:16)
== END 2023-05-09 13:42 | disposition home or self-care (01) | DRG 758 ==
LOC: ERS 17:37 → SURG A 21:28 → OBSVTOIN 05-05 15:04
PROVIDERS: ADMIT Student in an Organized Health Care Education/Training Program; ATTEND Internal Medicine
DX: B37.31 Acute candidiasis of vulva and vagina (principal); C85.90 Non-Hodgkin lymphoma, unspecified, unspecified site; N39.0 Urinary tract infection, site not specified; C90.00 Multiple myeloma not having achieved remission; E87.20 Acidosis, unspecified; E11.65 Type 2 diabetes mellitus with hyperglycemia; K59.03 Drug induced constipation; I10 Essential (primary) hypertension; G43.909 Migraine, unspecified, not intractable, without status migrainosus; T40.2X5A Adverse effect of other opioids, initial encounter; K76.0 Fatty (change of) liver, not elsewhere classified; T45.1X5A Adverse effect of antineoplastic and immunosuppressive drugs, initial encounter; Z98.890 Other specified postprocedural states; Z88.0 Allergy status to penicillin; Z88.5 Allergy status to narcotic agent; Z88.6 Allergy status to analgesic agent; Z79.899 Other long term (current) drug therapy; Z90.49 Acquired absence of other specified parts of digestive tract; Z90.710 Acquired absence of both cervix and uterus
CPT/HCPCS: 36415; 36416; 71045; 74018; 74177; 76705; 80053; 80074; 81001; 82010; 82805; 83036; 83605; 83615; 83690; 83735; 83930; 84443; 84484; 84550; 85025; 96360; 96361; 96374; 96375; J1170; J1815; J2270; J2272; J2405; J2550; J7050; Q0162; Q9967

== ENCOUNTER 2023-05-19 10:03 | Day surgery (SDC) | payer OTHER ==
[~2023-05-19 10:03] MED LIST changes: +BRENTUXIMAB VEDOTIN IV SCH; +DACARBAZINE IV SCH; +DOXORUBICIN IVPB SCH; +Dexamethasone Sod Phosphate 4 MG, Ondansetron 2MG/ML MDV 10 MG in Sodium Chloride 0.9% ... IVPB SCH; -Iopamidol-370 76% 500 ML MDV (1 ML CHARGE) ONE; +SODIUM CHLORIDE 0.9% IV SCH; +SODIUM CHLORIDE 0.9% IVPB SCH; +VINBLASTINE SULFATE IVPB SCH
[2023-05-19 10:34] VITALS: BP 114/60; TEMP 98.1
[2023-05-19] MEDS ORDERED: [UNRECOGNIZED DRUG - OTHER] IVPB SCH (11:15)
[2023-05-19] MEDS ORDERED: ADMIXTURE FEE IVPB SCH ×2 (11:15)
[2023-05-19] MEDS ORDERED: SODIUM CHLORIDE IV SCH (11:15)
[2023-05-19] MEDS ORDERED: ADMIXTURE FEE IV SCH (11:15)
[2023-05-19] MEDS ORDERED: SODIUM CHLORIDE IVPB SCH ×2 (11:15)
[2023-05-19] MEDS ORDERED: DACARBAZINE IV SCH (11:15)
[2023-05-19] MEDS ORDERED: SODIUM CHLORIDE 0.9% IVPB SCH (11:15)
[2023-05-19] MEDS ORDERED: ONDANSETRON IVPB SCH (11:15)
[2023-05-19] MEDS ORDERED: BRENTUXIMAB VEDOTIN IVPB SCH (11:15)
[2023-05-19] MEDS ORDERED: VINBLASTINE SULFATE IVPB SCH (11:15)
[2023-05-19] MEDS ORDERED: DOXORUBICIN IVPB SCH (11:15)
[2023-05-19] MEDS ORDERED: DEXAMETHASONE SOD PHOSPHATE IVPB SCH (11:15)
== END 2023-05-19 16:31 | disposition home or self-care (01) ==
LOC: ONC/OP 10:03
PROVIDERS: ATTEND Internal Medicine Hematology & Oncology
DX: C81.12 Nodular sclerosis Hodgkin lymphoma, intrathoracic lymph nodes (principal)
CPT/HCPCS: 96367; 96413; 96415; 96417; J1100; J1642; J2405; J3490; J7030; J9000; J9042; J9130; J9360

== ENCOUNTER 2023-05-20 12:54 | Day surgery (SDC) | payer OTHER ==
[~2023-05-20 12:54] MED LIST changes: +ADMIXTURE FEE IV SCH; +ADMIXTURE FEE IVPB SCH; +ADMIXTURE FEE SLOW IVP SCH; -BRENTUXIMAB VEDOTIN IV SCH; +BRENTUXIMAB VEDOTIN IVPB SCH; +DEXAMETHASONE SLOW IVP SCH; +DEXAMETHASONE SOD PHOSPHATE IVPB SCH; -Dexamethasone Sod Phosphate 4 MG, Ondansetron 2MG/ML MDV 10 MG in Sodium Chloride 0.9% ... IVPB SCH; +ONDANSETRON IVPB SCH; +ONDANSETRON SLOW IVP SCH; +PEGFILGRASTIM-JMDB 6 MG/0.6 ML SYRINGE SQ SCH; -SODIUM CHLORIDE 0.9% IV SCH; +SODIUM CHLORIDE IV SCH; +SODIUM CHLORIDE IVPB SCH; +[UNRECOGNIZED DRUG - OTHER] IVPB SCH; +[UNRECOGNIZED DRUG - OTHER] SLOW IVP SCH
[2023-05-20] MEDS ORDERED: PEGFILGRASTIM-JMDB 6 MG/0.6 ML SYRINGE ONE (13:03)
[2023-05-20 13:16] VITALS: BP 109/65; TEMP 98.7
== END 2023-05-20 13:17 | disposition home or self-care (01) ==
LOC: ONC/OP 12:54
PROVIDERS: ATTEND Internal Medicine Hematology & Oncology
DX: C81.12 Nodular sclerosis Hodgkin lymphoma, intrathoracic lymph nodes (principal); Z88.5 Allergy status to narcotic agent; Z88.6 Allergy status to analgesic agent; Z88.0 Allergy status to penicillin
CPT/HCPCS: 96372; J1100; J2405; J3490; J7030; J9000; J9042; J9130; J9360; Q5108

== ENCOUNTER 2023-05-20 22:45 | Observation (INO) | payer OTHER, SELFPAY ==
[~2023-05-20 22:45] MED LIST changes: -ADMIXTURE FEE IV SCH; -ADMIXTURE FEE IVPB SCH; -ADMIXTURE FEE SLOW IVP SCH; -BRENTUXIMAB VEDOTIN IVPB SCH; -DACARBAZINE IV SCH; -DEXAMETHASONE SLOW IVP SCH; -DEXAMETHASONE SOD PHOSPHATE IVPB SCH; -DOXORUBICIN IVPB SCH; +Iopamidol-370 76% 500 ML MDV (1 ML CHARGE) ONE; -ONDANSETRON IVPB SCH; -ONDANSETRON SLOW IVP SCH; -PEGFILGRASTIM-JMDB 6 MG/0.6 ML SYRINGE SQ SCH; -SODIUM CHLORIDE 0.9% IVPB SCH; -SODIUM CHLORIDE IV SCH; -SODIUM CHLORIDE IVPB SCH; -VINBLASTINE SULFATE IVPB SCH; -[UNRECOGNIZED DRUG - OTHER] IVPB SCH; -[UNRECOGNIZED DRUG - OTHER] SLOW IVP SCH
[2023-05-21] MEDS ORDERED: Acetaminophen 500 MG TAB ONE (00:09)
[2023-05-21] MEDS ORDERED: Prochlorperazine Maleate 5 MG TAB ONE ×2 (00:09→00:11)
[2023-05-21 00:38] LABS: Hematocrit 37.5 % (36.0-47.0); Hemoglobin 12.4 g/dL (12.0-16.0); Mean Corpuscular HGB CONC 33.1 g/dL (32.0-36.0); Mean Corpuscular Hemoglobin 28.8 pg (27.0-31.0); Mean Corpuscular Volume 87.2 fl (78.0-98.0); Mean Platelet Volume 8.9 fL (7.4-10.4); Platelet Count 287 10x3/uL (130-400); RBC Distribution Width 21.8 % (11.5-14.5); White Blood Cell (WBC) Count 39.2 10x3/uL (4.8-10.8)
[2023-05-21 00:45] LABS: Delete Auto Diff?? YES; Manual Diff?? YES
[2023-05-21 01:02] LABS: ALT (SGPT) 97 U/L (8-55); AST (SGOT) 78 U/L (5-34); Albumin 4.3 g/dL (3.5-5.0); Alkaline Phosphatase 104 U/L (40-110); Anion Gap 18 mmol/L (10-20); BUN (Urea Nitrogen) 11 mg/dL (9.8-20.1); Bilirubin, Total 0.6 mg/dL (0.2-1.2); Calc. Creatinine Clearance 0 mL/min (70-130); Calcium 9.1 mg/dL (7.8-10.44); Carbon Dioxide 17 mmol/L (22-29); Chloride 106 mmol/L (98-107); Estimated GFR 102; Globulin 2.3 g/dL (2.4-3.5); Glucose 174 mg/dL (70-105); Potassium 3.6 mmol/L (3.5-5.1); Protein, Total 6.6 g/dL (6.0-8.3); Sodium 137 mmol/L (136-145)
[2023-05-21 01:05] LABS: Anisocytosis MODERATE=16-30 cells HPF (0-5); Band 8 % (5-11); CellaVision Operator ID lab.sh2; Lymphocytes 1 % (21-51); Macrocytosis SLIGHT = 6-15 cells HPF (0-5); Monocytes 4 % (0-10); Neutrophil 87 % (42-75); Platelet Adequacy Comment Platelets Normal; Polychromasia MODERATE = 3-4 cells HPF (0-2); Smudge Cells 4.9 %; Total Cell Count 103; Vacuoles SLIGHT
[2023-05-21] MEDS ORDERED: Ondansetron PF 4 MG/2 ML Vial ONE (01:07)
[2023-05-21] MEDS ORDERED: Morphine 4 MG/ML VIAL ONE (01:07)
[2023-05-21] MEDS ORDERED: Vancomycin 1 GM/200 ML (FROZEN) BAG ONE (04:29)
[2023-05-21] MEDS ORDERED: Meropenem 1 GM in Sodium Chloride 0.9% 100 ML IVPB SCH (04:30)
[2023-05-21 05:29] LABS: Bilirubin Negative (Negative); Blood, Urine Negative (Negative); Clarity Clear (Clear); Glucose, Urine (Dipstick) Negative (Negative); Ketone, Urine Negative (Negative); Leukocyte Negative Leu/uL (Negative); Nitrite Negative (Negative); Protein, Urine (Dipstick) Negative (Neg-Trace); Urobilinogen 0.2 mg/dL (Less than 2)
[2023-05-21 05:30] LABS: Bacteria/HPF None Seen HPF (None Seen); CAUTI Indications for Culture Pelvic or flank pain; RBC/HPF 0-3 HPF (0-3); Renal Epithelial None Seen HPF (None Seen); Squamous Epithelial 0-3 HPF (0-3); Transitional Epithelial None Seen HPF (None Seen); WBC/HPF 0-3 HPF (0-3)
[2023-05-21 05:31] LABS: Urine Culture Reflex No No
[2023-05-21] MEDS ORDERED: Ondansetron ODT 4 MG TAB PO PRN (08:58)
[2023-05-21] MEDS ORDERED: Ondansetron PF 4 MG/2 ML Vial IVP PRN (08:58)
[2023-05-21] MEDS ORDERED: Promethazine HCl 12.5 MG in Sodium Chloride 0.9% 50 ML IVPB PRN (08:58)
[2023-05-21] MEDS ORDERED: HumaLOG 300 UNITS/3 ML VIAL SC PRN ×2 (09:00)
[2023-05-21] MEDS ORDERED: Glucagon 1 MG/ML KIT IM PRN (09:00)
[2023-05-21] MEDS ORDERED: Dextrose 5% in Water 1,000 ML IV PRN (09:00)
[2023-05-21] MEDS ORDERED: Dextrose 50% Abboject 50 ML SYRINGE SLOW IVP PRN (09:00)
[2023-05-21] MEDS ORDERED: Sodium Chloride 0.9% 1,000 ML IV SCH (09:00)
[2023-05-21] MEDS ORDERED: Polyethylene Glycol 3350 17 GM Packet PO PRN (09:02)
[2023-05-21] MEDS ORDERED: Senokot S 8.6-50 MG TAB PO PRN (09:02)
[2023-05-21] MEDS ORDERED: HYDROcodone/Acetaminophen 5/325 mg Tablet PO PRN (09:03)
[2023-05-21] MEDS ORDERED: Electrolyte Replacement Protocol 1 EACH FS SCH (09:15)
[2023-05-21 09:23] LABS: Magnesium 1.9 mg/dL (1.6-2.6)
[2023-05-21 10:10] VITALS: BMI 29.2
[2023-05-21] MEDS: Morphine 2 MG/ML VIAL SLOW IVP PRN ×2 (10:45→22:52)
[2023-05-21] MEDS: Famotidine/PF 20 mg/2ml Vial SLOW IVP SCH ×2 (10:46→20:41)
[2023-05-21] MEDS ORDERED: Magnesium 2 GM/50 ML(in water) 2 GM in Premix Bag 1 BAG IVPB SCH (11:00)
[2023-05-21] MEDS: Sodium Chloride 0.9% 1,000 ML IV SCH (12:51)
[2023-05-21] MEDS ORDERED: FLU VACC QS2023-24(6MOS UP)/PF 60 MCG/0.5 ML SYRINGE IM ONE (14:00)
[2023-05-21 14:46] LABS: Anion Gap 14 mmol/L (10-20); BUN (Urea Nitrogen) 7 mg/dL (9.8-20.1); Calc. Creatinine Clearance 107 mL/min (70-130); Carbon Dioxide 20 mmol/L (22-29); Chloride 107 mmol/L (98-107); Potassium 3.5 mmol/L (3.5-5.1); Sodium 137 mmol/L (136-145)
[2023-05-21 14:47] LABS: CRP (Inflammatory) 6.31 mg/dL (= or < 0.5); Calcium 8.8 mg/dL (7.8-10.44); Estimated GFR 105; Glucose 127 mg/dL (70-105)
[2023-05-21] MEDS: Meropenem 1 GM in Sodium Chloride 0.9% 100 ML IVPB SCH ×2 (15:02→22:39)
[2023-05-21] MEDS: Prochlorperazine Edisylate 10 MG in Sodium Chloride 0.9% 50 ML IVPB PRN (18:50)
[2023-05-21] MEDS: Vancomycin 1 GM in Premix Bag 1 BAG IVPB SCH (20:40)
[2023-05-21] MEDS ORDERED: Metoclopramide HCl 10 MG/2 ML VIAL IVP PRN (21:25)
[2023-05-22] MEDS: Prochlorperazine Edisylate 10 MG in Sodium Chloride 0.9% 50 ML IVPB PRN (05:15)
[2023-05-22] MEDS: Meropenem 1 GM in Sodium Chloride 0.9% 100 ML IVPB SCH (05:56)
[2023-05-22 05:59] LABS: Hematocrit 35.7 % (36.0-47.0); Hemoglobin 11.4 g/dL (12.0-16.0); Mean Corpuscular HGB CONC 31.9 g/dL (32.0-36.0); Mean Corpuscular Hemoglobin 28.4 pg (27.0-31.0); Mean Corpuscular Volume 88.8 fl (78.0-98.0); Mean Platelet Volume 9.2 fL (7.4-10.4); Platelet Count 190 10x3/uL (130-400); RBC Distribution Width 21.6 % (11.5-14.5); Red Blood Cell (RBC) Count 4.02 mill/uL (4.20-5.40); White Blood Cell (WBC) Count 33.4 10x3/uL (4.8-10.8)
[2023-05-22 06:06] LABS: Delete Auto Diff?? YES; Manual Diff?? YES
[2023-05-22 06:22] LABS: ALT (SGPT) 81 U/L (8-55); AST (SGOT) 67 U/L (5-34); Albumin 3.9 g/dL (3.5-5.0); Alkaline Phosphatase 122 U/L (40-110); Anion Gap 13 mmol/L (10-20); BUN (Urea Nitrogen) 7 mg/dL (9.8-20.1); Bilirubin, Total 0.6 mg/dL (0.2-1.2); Calc. Creatinine Clearance 104 mL/min (70-130); Calcium 8.6 mg/dL (7.8-10.44); Carbon Dioxide 20 mmol/L (22-29); Chloride 105 mmol/L (98-107); Estimated GFR 104; Glucose 149 mg/dL (70-105); Potassium 3.4 mmol/L (3.5-5.1); Protein, Total 5.9 g/dL (6.0-8.3); Sodium 135 mmol/L (136-145)
[2023-05-22] MEDS: Sodium Chloride 0.9% 1,000 ML IV SCH ×2 (06:31→06:38)
[2023-05-22 06:34] LABS: Band 25 % (5-11); CellaVision Operator ID LAB.CLH1; Hypochromia SLIGHT = 6-15 cells HPF (0-5); Lymphocytes 3 % (21-51); Neutrophil 72 % (42-75); Platelet Adequacy Comment Platelets Normal; Polychromasia MODERATE = 3-4 cells HPF (0-2); Total Cell Count 101
[2023-05-22] MEDS ORDERED: Potassium Chloride 20 MEQ TAB PO SCH (08:00)
[2023-05-22] MEDS ORDERED: Magnesium 2 GM/50 ML(in water) 2 GM in Premix Bag 1 BAG IVPB SCH (08:00)
[2023-05-22] MEDS: Famotidine/PF 20 mg/2ml Vial SLOW IVP SCH (08:29)
[2023-05-22] MEDS ORDERED: Loratadine 10 MG TAB PO SCH (09:00)
[2023-05-22] MEDS ORDERED: Non-Formulary Item 1 EACH (Loratadine [Claritin] 5 MG Tab.Rapdis) PO SCH (09:00)
[2023-05-22] MEDS: Vancomycin 1 GM in Premix Bag 1 BAG IVPB SCH (09:51)
[2023-05-22 12:41] VITALS: BP 138/89; TEMP 98.4
== END 2023-05-22 14:13 | disposition home or self-care (01) ==
LOC: ERS 22:45 → SJJU 05-21 05:08
PROVIDERS: ADMIT Student in an Organized Health Care Education/Training Program; ATTEND Internal Medicine
DX: R10.9 Unspecified abdominal pain (principal); E11.9 Type 2 diabetes mellitus without complications; K75.81 Nonalcoholic steatohepatitis (NASH); K52.9 Noninfective gastroenteritis and colitis, unspecified; I10 Essential (primary) hypertension; G43.909 Migraine, unspecified, not intractable, without status migrainosus; F41.9 Anxiety disorder, unspecified; R91.1 Solitary pulmonary nodule; A41.9 Sepsis, unspecified organism; C81.90 Hodgkin lymphoma, unspecified, unspecified site; Z90.710 Acquired absence of both cervix and uterus; Z90.721 Acquired absence of ovaries, unilateral; Z90.49 Acquired absence of other specified parts of digestive tract; Z79.899 Other long term (current) drug therapy; Z88.5 Allergy status to narcotic agent; Z88.0 Allergy status to penicillin; Z79.84 Long term (current) use of oral hypoglycemic drugs
CPT/HCPCS: 36415; 36416; 71045; 74177; 80053; 81001; 83605; 83735; 85025; 86140; 87040; 87086; 96365; 96366; 96367; 96372; 96375; 96376; G0378; J0780; J1642; J1650; J1815; J2185; J2270; J2272; J2405; J2550; J2765; J3370-JW; J3475; J3490; J7050; Q0164; Q9967; S0028

== ENCOUNTER 2023-05-28 14:35 | Emergency (ER) | payer OTHER ==
[2023-05-28 15:10] LABS: #Basophils 0.1 thou/uL (0.0-0.2); #Eosinphils 0.8 thou/uL (0.0-0.7); #Monocytes 1.2 thou/uL (0.11-0.59); #Neutrophils 8.2 thou/uL (1.40-6.50); %Basophils 1.1 % (0.0-1.0); %Eosinophils 6.4 % (0.0-10.0); %Lymphocytes 10.4 % (21.0-51.0); %Monocytes 10.5 % (0.0-10.0); %Neutrophils 69.5 % (42.0-75.0); Hematocrit 39.1 % (36.0-47.0); Mean Corpuscular HGB CONC 33.2 g/dL (32.0-36.0); Mean Corpuscular Hemoglobin 28.4 pg (27.0-31.0); Mean Corpuscular Volume 85.4 fl (78.0-98.0); Mean Platelet Volume 9.1 fL (7.4-10.4); Platelet Count 373 10x3/uL (130-400); RBC Distribution Width 20.7 % (11.5-14.5); Red Blood Cell (RBC) Count 4.58 mill/uL (4.20-5.40); White Blood Cell (WBC) Count 11.8 10x3/uL (4.8-10.8)
[2023-05-28 15:42] LABS: ALT (SGPT) 158 U/L (8-55); AST (SGOT) 96 U/L (5-34); Albumin 4.9 g/dL (3.5-5.0); Alkaline Phosphatase 142 U/L (40-110); Anion Gap 16 mmol/L (10-20); BUN (Urea Nitrogen) 7 mg/dL (9.8-20.1); Bilirubin, Total 0.5 mg/dL (0.2-1.2); Calc. Creatinine Clearance 0 mL/min (70-130); Carbon Dioxide 21 mmol/L (22-29); Chloride 102 mmol/L (98-107); Estimated GFR 99; Globulin 2.6 g/dL (2.4-3.5); Glucose 180 mg/dL (70-105); Lipase 34 U/L (8-78); Potassium 3.4 mmol/L (3.5-5.1); Protein, Total 7.5 g/dL (6.0-8.3); Sodium 136 mmol/L (136-145)
[2023-05-28] MEDS ORDERED: Ondansetron PF 4 MG/2 ML Vial ONE (17:40)
[2023-05-28] MEDS ORDERED: Metoclopramide HCl 10 MG/2 ML VIAL ONE (17:40)
[2023-05-28] MEDS ORDERED: Morphine 4 MG/ML VIAL ONE (17:40)
== END 2023-05-28 20:20 | disposition home or self-care (01) ==
LOC: ERS 14:35
DX: R10.9 Unspecified abdominal pain (principal); R11.2 Nausea with vomiting, unspecified; I10 Essential (primary) hypertension
CPT/HCPCS: 36415; 74177; 80053; 83605; 83690; 85025; 93005; 96361; 96374; 96375; J2270; J2405; J2765; Q9967

== ENCOUNTER → 2023-06-02 | Day surgery (SDC) | payer OTHER ==
[~2023-06-02] MED LIST changes: +ADMIXTURE FEE IV SCH; +ADMIXTURE FEE IVPB SCH; +BRENTUXIMAB VEDOTIN IVPB SCH; +DACARBAZINE IV SCH; +DOXORUBICIN IVPB SCH; +Dexamethasone 10 MG, Ondansetron 2MG/ML MDV 10 MG, Admixture Fee 1 EACH in Sodium Chlor... IVPB SCH; +Dexamethasone Sod Phosphate 10 MG, Ondansetron 2MG/ML MDV 10 MG, Admixture Fee 1 EACH i... IVPB SCH; +Fosaprepitant Dimeglumine 150 MG in 0.9 % Sodium Chloride 145 ML IVPB SCH; -Iopamidol-370 76% 500 ML MDV (1 ML CHARGE) ONE; +PALONOSETRON HCL 0.05 MG/ML 5 ML VIAL IVP SCH; +PALONOSETRON HCL 0.05 MG/ML 5 ML VIAL ONE; +SODIUM CHLORIDE 0.9% IVPB SCH; +SODIUM CHLORIDE IV SCH; +SODIUM CHLORIDE IVPB SCH; +VINBLASTINE SULFATE IVPB SCH
[2023-06-02 11:22] VITALS: BP 118/64; TEMP 97.9
== END ==
LOC: ONC/OP 09:25
PROVIDERS: ATTEND Internal Medicine Hematology & Oncology
DX: C81.12 Nodular sclerosis Hodgkin lymphoma, intrathoracic lymph nodes (principal); Z88.5 Allergy status to narcotic agent; Z88.0 Allergy status to penicillin
CPT/HCPCS: 96367; 96375; 96401; 96413; 96415; 96417; J1100; J1453; J1642; J2405; J2469; J3490; J7030; J9000; J9042; J9130; J9360

== ENCOUNTER 2023-06-03 13:03 | Day surgery (SDC) | payer SELFPAY ==
[2023-06-03] MEDS ORDERED: PEGFILGRASTIM-JMDB 6 MG/0.6 ML SYRINGE ONE (13:22)
[2023-06-03] MEDS ORDERED: PEGFILGRASTIM-JMDB 6 MG/0.6 ML SYRINGE SQ SCH (13:30)
[2023-06-03] MEDS ORDERED: FLU VACC QS2023-24(6MOS UP)/PF 60 MCG/0.5 ML SYRINGE IM ONE (14:00)
[2023-06-03 14:46] VITALS: BP 113/57; TEMP 98.2
== END 2023-06-03 14:47 | disposition home or self-care (01) ==
LOC: ONC/OP 13:03
PROVIDERS: ATTEND Internal Medicine Hematology & Oncology
DX: C85.90 Non-Hodgkin lymphoma, unspecified, unspecified site (principal); Z88.5 Allergy status to narcotic agent; Z88.0 Allergy status to penicillin
CPT/HCPCS: 90471; 90686; 96372; 99211; G0008; G0463; Q5108

== ENCOUNTER 2023-06-08 08:50 | Emergency (ER) | payer OTHER ==
[2023-06-08 09:28] LABS: Hematocrit 36.9 % (36.0-47.0); Hemoglobin 12.5 g/dL (12.0-16.0); Mean Corpuscular HGB CONC 33.9 g/dL (32.0-36.0); Mean Corpuscular Volume 85.6 fl (78.0-98.0); Mean Platelet Volume 9.6 fL (7.4-10.4); Platelet Count 149 10x3/uL (130-400); RBC Distribution Width 19.8 % (11.5-14.5); Red Blood Cell (RBC) Count 4.31 mill/uL (4.20-5.40); White Blood Cell (WBC) Count 6.4 10x3/uL (4.8-10.8)
[2023-06-08 09:33] LABS: Delete Auto Diff?? YES; Manual Diff?? YES
[2023-06-08 09:36] LABS: Bacteria/HPF 2+ HPF (None Seen); Bilirubin Negative (Negative); Blood, Urine Negative (Negative); CAUTI Indications for Culture Dysuria,urgency,freq; Clarity Turbid (Clear); Glucose, Urine (Dipstick) 100 mg/dL (Negative); Ketone, Urine 10 mg/dL (Negative); Leukocyte 250 Leu/uL (Negative); Nitrite Negative (Negative); Protein, Urine (Dipstick) 70 mg/dL (Neg-Trace); RBC/HPF 0-3 HPF (0-3); Specific Gravity, Urine 1.029 (1.002-1.036); pH, Urine 5.5 (5.0-9.0)
[2023-06-08 09:37] LABS: Urine Culture Reflex No No
[2023-06-08] MEDS ORDERED: Morphine 4 MG/ML VIAL ONE (09:37)
[2023-06-08 09:53] LABS: ALT (SGPT) 73 U/L (8-55); AST (SGOT) 54 U/L (5-34); Albumin 4.3 g/dL (3.5-5.0); Alkaline Phosphatase 143 U/L (40-110); Anion Gap 19 mmol/L (10-20); BUN (Urea Nitrogen) 11 mg/dL (9.8-20.1); Bilirubin, Total 0.8 mg/dL (0.2-1.2); Calc. Creatinine Clearance 0 mL/min (70-130); Calcium 9.5 mg/dL (7.8-10.44); Carbon Dioxide 20 mmol/L (22-29); Chloride 101 mmol/L (98-107); Estimated GFR 96; Globulin 2.6 g/dL (2.4-3.5); Glucose 287 mg/dL (70-105); Lipase 16 U/L (8-78); Potassium 3.9 mmol/L (3.5-5.1); Protein, Total 6.9 g/dL (6.0-8.3); Sodium 136 mmol/L (136-145)
[2023-06-08 09:56] LABS: Troponin I Less than 0.010 ng/mL (< 0.028)
[2023-06-08] MEDS ORDERED: Promethazine HCl 25 MG in Sodium Chloride 0.9% 50 ML IVPB SCH ×2 (10:00→16:15)
[2023-06-08 10:06] LABS: Band 24 % (5-11); CellaVision Operator ID LAB.CMB; Elliptocytes SLIGHT = 2-5 cells HPF (0-1); Eosinophils 2 % (0-10); Large Platelets 2.8 % (0-5); Lymphocytes 8 % (21-51); Macrocytosis SLIGHT = 6-15 cells HPF (0-5); Metamyelocyte 2 % (0-0); Monocytes 10 % (0-10); Neutrophil 53 % (42-75); Platelet Adequacy Comment Platelets Normal; Polychromasia SLIGHT = 2-3 cells HPF (0-2); Total Cell Count 106
[2023-06-08] MEDS ORDERED: LevoFLOXacin 750 mg/D5W 150 ml Premix Bag ONE (12:50)
[2023-06-08] MEDS ORDERED: Iopamidol-370 76% 500 ML MDV (1 ML CHARGE) ONE (13:54)
[2023-06-08] MEDS ORDERED: Acetaminophen 500 MG TAB ONE (16:43)
== END 2023-06-08 17:20 | disposition home or self-care (01) ==
LOC: ERS 08:50
DX: R11.2 Nausea with vomiting, unspecified (principal); N39.0 Urinary tract infection, site not specified; I10 Essential (primary) hypertension; E11.9 Type 2 diabetes mellitus without complications; Z79.84 Long term (current) use of oral hypoglycemic drugs
CPT/HCPCS: 74177; 80053; 81001; 83605; 83690; 84484; 85025; 93005; 96365; 96366; 96367; 96375; J1956; J2270; J2550; Q9967

== ENCOUNTER 2023-06-17 11:04 | Day surgery (SDC) | payer OTHER ==
[~2023-06-17 11:04] MED LIST changes: -Dexamethasone 10 MG, Ondansetron 2MG/ML MDV 10 MG, Admixture Fee 1 EACH in Sodium Chlor... IVPB SCH; -Dexamethasone Sod Phosphate 10 MG, Ondansetron 2MG/ML MDV 10 MG, Admixture Fee 1 EACH i... IVPB SCH; -PALONOSETRON HCL 0.05 MG/ML 5 ML VIAL ONE
[2023-06-17 11:54] VITALS: BP 112/59; TEMP 98.1
[2023-06-17] MEDS ORDERED: PALONOSETRON HCL 0.05 MG/ML 5 ML VIAL ONE (12:04)
== END 2023-06-17 18:19 | disposition home or self-care (01) ==
LOC: ONC/OP 11:04
PROVIDERS: ATTEND Internal Medicine Hematology & Oncology
DX: C81.12 Nodular sclerosis Hodgkin lymphoma, intrathoracic lymph nodes (principal)
CPT/HCPCS: 96367; 96375; 96411; 96413; 96415; 96417; J1100; J1453; J2469; J3490; J7030; J9000; J9042; J9130; J9360

== ENCOUNTER 2023-06-18 14:20 | Day surgery (SDC) | payer OTHER ==
[~2023-06-18 14:20] MED LIST changes: -ADMIXTURE FEE IV SCH; -ADMIXTURE FEE IVPB SCH; -BRENTUXIMAB VEDOTIN IVPB SCH; -DACARBAZINE IV SCH; -DOXORUBICIN IVPB SCH; -Fosaprepitant Dimeglumine 150 MG in 0.9 % Sodium Chloride 145 ML IVPB SCH; -PALONOSETRON HCL 0.05 MG/ML 5 ML VIAL IVP SCH; +PEGFILGRASTIM-JMDB 6 MG/0.6 ML SYRINGE ONE; +PEGFILGRASTIM-JMDB 6 MG/0.6 ML SYRINGE SQ SCH; -SODIUM CHLORIDE 0.9% IVPB SCH; -SODIUM CHLORIDE IV SCH; -SODIUM CHLORIDE IVPB SCH; -VINBLASTINE SULFATE IVPB SCH
[2023-06-18 14:45] VITALS: BP 109/67; TEMP 97.9
== END 2023-06-18 14:47 | disposition home or self-care (01) ==
LOC: ONC/OP 14:20
PROVIDERS: ATTEND Internal Medicine Hematology & Oncology
DX: C81.12 Nodular sclerosis Hodgkin lymphoma, intrathoracic lymph nodes (principal)
CPT/HCPCS: 96372; Q5108

== ENCOUNTER 2023-07-09 08:56 | Day surgery (SDC) | payer OTHER ==
[2023-07-09] MEDS ORDERED: PALONOSETRON HCL 0.05 MG/ML 5 ML VIAL IVP SCH (09:15)
[2023-07-09] MEDS ORDERED: Fosaprepitant Dimeglumine 150 MG in 0.9 % Sodium Chloride 145 ML IVPB SCH (09:15)
[2023-07-09] MEDS ORDERED: PEGFILGRASTIM-JMDB 6 MG/0.6 ML SYRINGE SQ SCH (09:30)
[2023-07-09] MEDS ORDERED: SODIUM CHLORIDE 0.9% IVPB SCH (09:45)
[2023-07-09] MEDS ORDERED: DOXORUBICIN IVPB SCH (09:45)
[2023-07-09] MEDS ORDERED: DACARBAZINE IV SCH (10:00)
[2023-07-09] MEDS ORDERED: SODIUM CHLORIDE 0.9% IV SCH ×2 (10:00)
[2023-07-09] MEDS ORDERED: vinCRIStine Sulfate 2 MG in Sodium Chloride 0.9% 50 ML IVPB SCH (10:00)
[2023-07-09] MEDS ORDERED: BRENTUXIMAB VEDOTIN IV SCH (10:00)
[2023-07-09] MEDS ORDERED: PALONOSETRON HCL 0.05 MG/ML 5 ML VIAL ONE (11:11)
[2023-07-09 11:31] VITALS: BP 112/59; TEMP 98.7
== END 2023-07-09 16:50 | disposition home or self-care (01) ==
LOC: ONC/OP 08:56
PROVIDERS: ATTEND Internal Medicine Hematology & Oncology
DX: C81.12 Nodular sclerosis Hodgkin lymphoma, intrathoracic lymph nodes (principal)
CPT/HCPCS: 96367; 96375; 96411; 96413; 96415; 96417; J1100; J1453; J2469; J3490; J7030; J9000; J9042; J9130; J9370; Q2050

== ENCOUNTER 2023-07-10 14:48 | Day surgery (SDC) | payer OTHER ==
[~2023-07-10 14:48] MED LIST changes: -PEGFILGRASTIM-JMDB 6 MG/0.6 ML SYRINGE ONE
[2023-07-10 15:08] VITALS: BP 98/58; TEMP 97.6
[2023-07-10] MEDS ORDERED: PEGFILGRASTIM-JMDB 6 MG/0.6 ML SYRINGE ONE (15:41)
== END 2023-07-10 15:34 | disposition home or self-care (01) ==
LOC: ONC/OP 14:48
PROVIDERS: ATTEND Internal Medicine Hematology & Oncology
DX: C81.12 Nodular sclerosis Hodgkin lymphoma, intrathoracic lymph nodes (principal); Z88.5 Allergy status to narcotic agent; Z88.0 Allergy status to penicillin
CPT/HCPCS: 96372; Q5108

== ENCOUNTER 2023-07-14 19:37 | Emergency (ER) | payer OTHER, SELFPAY ==
[2023-07-14 20:18] LABS: Hematocrit 35.4 % (36.0-47.0); Hemoglobin 11.7 g/dL (12.0-16.0); Manual Diff?? YES; Mean Corpuscular HGB CONC 33.1 g/dL (32.0-36.0); Mean Corpuscular Hemoglobin 29.5 pg (27.0-31.0); Mean Corpuscular Volume 89.2 fl (78.0-98.0); Mean Platelet Volume 10.1 fL (7.4-10.4); RBC Distribution Width 18.2 % (11.5-14.5); Red Blood Cell (RBC) Count 3.97 mill/uL (4.20-5.40); White Blood Cell (WBC) Count 11.8 10x3/uL (4.8-10.8)
[2023-07-14 20:26] LABS: Delete Auto Diff?? YES; Platelet Count 104 10x3/uL (130-400)
[2023-07-14 20:49] LABS: ALT (SGPT) 63 U/L (8-55); AST (SGOT) 55 U/L (5-34); Albumin 3.9 g/dL (3.5-5.0); Alkaline Phosphatase 174 U/L (40-110); Anion Gap 14 mmol/L (10-20); BUN (Urea Nitrogen) 7 mg/dL (9.8-20.1); Bilirubin, Total 0.9 mg/dL (0.2-1.2); CK (CPK) 18 U/L (29-168); Calc. Creatinine Clearance 0 mL/min (70-130); Calcium 8.8 mg/dL (7.8-10.44); Carbon Dioxide 23 mmol/L (22-29); Chloride 105 mmol/L (98-107); Estimated GFR 102; Globulin 2.4 g/dL (2.4-3.5); Glucose 187 mg/dL (70-105); Lipase 16 U/L (8-78); Potassium 3.8 mmol/L (3.5-5.1); Protein, Total 6.3 g/dL (6.0-8.3); Sodium 138 mmol/L (136-145)
[2023-07-14] MEDS ORDERED: Dexamethasone 10 MG/ML VIAL ONE (20:50)
[2023-07-14 20:51] LABS: Band 20 % (5-11); CellaVision Operator ID LAB.CLH1; Lymphocytes 6 % (21-51); Macrocytosis SLIGHT = 6-15 cells HPF (0-5); Monocytes 7 % (0-10); Neutrophil 66 % (42-75); Platelet Adequacy Comment Platelets Decreased; Polychromasia SLIGHT = 2-3 cells HPF (0-2); Total Cell Count 101
[2023-07-14] MEDS ORDERED: Ketorolac Tromethamine 30 MG/ML VIAL ONE ×2 (20:51→20:52)
[2023-07-14] MEDS ORDERED: fentaNYL 50 mcg/mL 1 mL Vial ONE (20:51)
[2023-07-14] MEDS ORDERED: Metoclopramide HCl 10 MG/2 ML VIAL ONE (20:51)
== END 2023-07-14 22:33 | disposition home or self-care (01) ==
LOC: ERS 19:37
DX: G43.109 Migraine with aura, not intractable, without status migrainosus (principal); I10 Essential (primary) hypertension; E11.9 Type 2 diabetes mellitus without complications; Z51.11 Encounter for antineoplastic chemotherapy; Z79.4 Long term (current) use of insulin
CPT/HCPCS: 36415; 70450; 80053; 82550; 83690; 85025; 96365; 96375; J1100; J1885; J2765; J3010

== ENCOUNTER 2023-07-23 08:59 | Day surgery (SDC) | payer OTHER ==
[2023-07-23] MEDS ORDERED: Fosaprepitant Dimeglumine 150 MG in 0.9 % Sodium Chloride 145 ML IVPB SCH (09:00)
[2023-07-23] MEDS ORDERED: PALONOSETRON HCL 0.05 MG/ML 5 ML VIAL IVP SCH (09:00)
[2023-07-23] MEDS ORDERED: Dexamethasone 10 MG in Sodium Chloride 0.9% 50 ML IVPB SCH (09:00)
[2023-07-23] MEDS ORDERED: BRENTUXIMAB VEDOTIN IV SCH (09:15)
[2023-07-23] MEDS ORDERED: SODIUM CHLORIDE 0.9% IV SCH ×2 (09:15)
[2023-07-23] MEDS ORDERED: DACARBAZINE IV SCH (09:15)
[2023-07-23] MEDS ORDERED: DOXORUBICIN IVPB SCH (09:15)
[2023-07-23] MEDS ORDERED: SODIUM CHLORIDE 0.9% IVPB SCH (09:15)
[2023-07-23] MEDS ORDERED: vinCRIStine Sulfate 2 MG in Sodium Chloride 0.9% 50 ML IVPB SCH (09:15)
[2023-07-23 10:01] VITALS: BP 90/57; TEMP 98.2
[2023-07-23] MEDS ORDERED: PALONOSETRON HCL 0.05 MG/ML 5 ML VIAL ONE (10:25)
[2023-07-23] MEDS ORDERED: FLU VACC QS2023-24(6MOS UP)/PF 60 MCG/0.5 ML SYRINGE IM ONE (10:30)
== END 2023-07-23 15:48 | disposition home or self-care (01) ==
LOC: ONC/OP 08:59
PROVIDERS: ATTEND Internal Medicine Hematology & Oncology
DX: C81.12 Nodular sclerosis Hodgkin lymphoma, intrathoracic lymph nodes (principal)
CPT/HCPCS: 90471; 90686; 96367; 96413; 96417; G0008; J1100; J1642; J2469; J3490; J7030; J9000; J9042; J9130; J9370

== ENCOUNTER 2023-07-24 13:11 | Day surgery (SDC) | payer OTHER ==
[2023-07-24] MEDS ORDERED: PEGFILGRASTIM-JMDB 6 MG/0.6 ML SYRINGE ONE (13:15)
== END 2023-07-24 13:28 | disposition home or self-care (01) ==
LOC: ONC/OP 13:11
PROVIDERS: ATTEND Internal Medicine Hematology & Oncology
DX: C81.12 Nodular sclerosis Hodgkin lymphoma, intrathoracic lymph nodes (principal)
CPT/HCPCS: 96372; Q5108

== ENCOUNTER 2023-08-06 09:36 | Day surgery (SDC) | payer OTHER ==
[~2023-08-06 09:36] MED LIST changes: +BRENTUXIMAB VEDOTIN IV SCH; +DACARBAZINE IV SCH; +DOXORUBICIN IVPB SCH; +Fosaprepitant Dimeglumine 150 MG in 0.9 % Sodium Chloride 145 ML IVPB SCH; +PALONOSETRON HCL 0.05 MG/ML 5 ML VIAL IVP SCH; -PEGFILGRASTIM-JMDB 6 MG/0.6 ML SYRINGE SQ SCH; +SODIUM CHLORIDE 0.9% IV SCH; +SODIUM CHLORIDE 0.9% IVPB SCH; +vinCRIStine Sulfate 2 MG in Sodium Chloride 0.9% 50 ML IVPB SCH
[2023-08-06 10:27] VITALS: BP 120/61; TEMP 98.5
[2023-08-06] MEDS ORDERED: PALONOSETRON HCL 0.05 MG/ML 5 ML VIAL ONE (10:47)
== END 2023-08-06 14:48 | disposition home or self-care (01) ==
LOC: ONC/OP 09:36
PROVIDERS: ATTEND Internal Medicine Hematology & Oncology
DX: C81.12 Nodular sclerosis Hodgkin lymphoma, intrathoracic lymph nodes (principal)
CPT/HCPCS: 96367; 96375; 96411; 96413; 96417; J1100; J1453; J1642; J2469; J3490; J7030; J9000; J9042; J9130; J9370

== ENCOUNTER 2023-08-22 09:43 | Day surgery (SDC) | payer OTHER ==
[2023-08-22] MEDS ORDERED: PALONOSETRON HCL 0.05 MG/ML 5 ML VIAL ONE (10:27)
[2023-08-22 11:04] VITALS: BP 116/72; TEMP 98.2
== END 2023-08-22 15:10 | disposition home or self-care (01) ==
LOC: ONC/OP 09:43
PROVIDERS: ATTEND Internal Medicine Hematology & Oncology
DX: C81.12 Nodular sclerosis Hodgkin lymphoma, intrathoracic lymph nodes (principal)
CPT/HCPCS: 96367; 96375; 96411; 96413; 96417; J1100; J1453; J1642; J2469; J3490; J7030; J9000; J9042; J9130; J9370

== ENCOUNTER → 2023-08-23 | Day surgery (SDC) | payer OTHER ==
[~2023-08-23] MED LIST changes: -BRENTUXIMAB VEDOTIN IV SCH; -DACARBAZINE IV SCH; -DOXORUBICIN IVPB SCH; -Fosaprepitant Dimeglumine 150 MG in 0.9 % Sodium Chloride 145 ML IVPB SCH; -PALONOSETRON HCL 0.05 MG/ML 5 ML VIAL IVP SCH; +PEGFILGRASTIM-JMDB 6 MG/0.6 ML SYRINGE ONE; +PEGFILGRASTIM-JMDB 6 MG/0.6 ML SYRINGE SQ SCH; -SODIUM CHLORIDE 0.9% IV SCH; -SODIUM CHLORIDE 0.9% IVPB SCH; -vinCRIStine Sulfate 2 MG in Sodium Chloride 0.9% 50 ML IVPB SCH
[2023-08-23 14:17] VITALS: BP 104/58; TEMP 98.1
== END ==
LOC: ONC/OP 13:49
PROVIDERS: ATTEND Internal Medicine Hematology & Oncology
DX: Z51.89 Encounter for other specified aftercare (principal); Z88.0 Allergy status to penicillin; Z88.5 Allergy status to narcotic agent
CPT/HCPCS: 96413; J2506U

== ENCOUNTER 2023-09-08 09:39 | Day surgery (SDC) | payer OTHER ==
[~2023-09-08 09:39] MED LIST changes: +BRENTUXIMAB VEDOTIN IV SCH; +DACARBAZINE IV SCH; +DOXORUBICIN IVPB SCH; +Fosaprepitant Dimeglumine 150 MG in 0.9 % Sodium Chloride 145 ML IVPB SCH; +PALONOSETRON HCL 0.05 MG/ML 5 ML VIAL IVP SCH; -PEGFILGRASTIM-JMDB 6 MG/0.6 ML SYRINGE ONE; -PEGFILGRASTIM-JMDB 6 MG/0.6 ML SYRINGE SQ SCH; +SODIUM CHLORIDE 0.9% IV SCH; +SODIUM CHLORIDE 0.9% IVPB SCH; +vinCRIStine Sulfate 2 MG in Sodium Chloride 0.9% 50 ML IVPB SCH
[2023-09-08 10:02] VITALS: BP 110/60; TEMP 97.9
[2023-09-08] MEDS ORDERED: PALONOSETRON HCL 0.05 MG/ML 5 ML VIAL ONE (10:11)
== END 2023-09-08 15:02 | disposition home or self-care (01) ==
LOC: ONC/OP 09:39
PROVIDERS: ATTEND Internal Medicine Hematology & Oncology
DX: C81.12 Nodular sclerosis Hodgkin lymphoma, intrathoracic lymph nodes (principal); Z88.5 Allergy status to narcotic agent; Z88.0 Allergy status to penicillin
CPT/HCPCS: 96367; 96413; 96417; J1100; J1453; J1642; J2469; J3490; J7030; J9000; J9042; J9130; J9370

== ENCOUNTER 2023-09-09 13:38 | Day surgery (SDC) | payer SELFPAY ==
[~2023-09-09 13:38] MED LIST changes: -BRENTUXIMAB VEDOTIN IV SCH; -DACARBAZINE IV SCH; -DOXORUBICIN IVPB SCH; -Fosaprepitant Dimeglumine 150 MG in 0.9 % Sodium Chloride 145 ML IVPB SCH; -PALONOSETRON HCL 0.05 MG/ML 5 ML VIAL IVP SCH; +PEGFILGRASTIM-JMDB 6 MG/0.6 ML SYRINGE ONE; -SODIUM CHLORIDE 0.9% IV SCH; -SODIUM CHLORIDE 0.9% IVPB SCH; -vinCRIStine Sulfate 2 MG in Sodium Chloride 0.9% 50 ML IVPB SCH
[2023-09-09] MEDS: PEGFILGRASTIM-JMDB 6 MG/0.6 ML SYRINGE SQ SCH (13:41)
[2023-09-09 13:57] VITALS: BP 99/53; TEMP 97.4
== END 2023-09-09 14:00 | disposition home or self-care (01) ==
LOC: ONC/OP 13:38
PROVIDERS: ATTEND Internal Medicine Hematology & Oncology
DX: C81.12 Nodular sclerosis Hodgkin lymphoma, intrathoracic lymph nodes (principal); Z88.5 Allergy status to narcotic agent; Z88.0 Allergy status to penicillin
CPT/HCPCS: 96374; J2506

== ENCOUNTER 2023-09-22 09:19 | Day surgery (SDC) | payer OTHER, SELFPAY ==
[~2023-09-22 09:19] MED LIST changes: +BRENTUXIMAB VEDOTIN IV SCH; +DACARBAZINE IV SCH; +DOXORUBICIN IVPB SCH; -PEGFILGRASTIM-JMDB 6 MG/0.6 ML SYRINGE ONE; +SODIUM CHLORIDE 0.9% IV SCH; +SODIUM CHLORIDE 0.9% IVPB SCH
[2023-09-22] MEDS ORDERED: PALONOSETRON HCL 0.05 MG/ML 5 ML VIAL ONE (10:06)
[2023-09-22] MEDS: Fosaprepitant Dimeglumine 150 MG in 0.9 % Sodium Chloride 145 ML IVPB SCH (10:08)
[2023-09-22] MEDS: PALONOSETRON HCL 0.05 MG/ML 5 ML VIAL IVP SCH (10:08)
[2023-09-22 10:31] VITALS: BP 117/60; TEMP 98.1
[2023-09-22] MEDS: SODIUM CHLORIDE 0.9% IVPB SCH (11:21)
[2023-09-22] MEDS: DOXORUBICIN IVPB SCH (11:21)
[2023-09-22] MEDS: vinCRIStine Sulfate 2 MG in Sodium Chloride 0.9% 50 ML IVPB SCH (11:23)
[2023-09-22] MEDS: SODIUM CHLORIDE 0.9% IV SCH ×2 (11:25→11:26)
[2023-09-22] MEDS: DACARBAZINE IV SCH (11:25)
[2023-09-22] MEDS: BRENTUXIMAB VEDOTIN IV SCH (11:26)
== END 2023-09-22 15:06 | disposition home or self-care (01) ==
LOC: ONC/OP 09:19
PROVIDERS: ATTEND Internal Medicine Hematology & Oncology
DX: C81.12 Nodular sclerosis Hodgkin lymphoma, intrathoracic lymph nodes (principal)
CPT/HCPCS: 96366; 96413; 96415; 96417; J1100; J1453; J1642; J2469; J3490; J7030; J9000; J9042; J9130; J9370

== ENCOUNTER 2023-12-19 12:26 | Emergency (ER) | payer MEDICAID ==
[2023-12-19] MEDS ORDERED: diphenhydrAMINE 50 MG/ML VIAL ONE (13:15)
[2023-12-19] MEDS ORDERED: Ketorolac Tromethamine 30 MG (1 mL) VIAL ONE (13:16)
[2023-12-19] MEDS ORDERED: methylPREDNISolone Sod Succ/PF 125 MG/2 ML VIAL ONE (13:16)
[2023-12-19] MEDS ORDERED: Metoclopramide HCl 10 MG (2 mL) VIAL ONE (13:16)
[2023-12-19 13:25] LABS: #Basophils 0.03 10x3/uL (0.0-0.2); %Basophils 0.5 % (0.0-1.0); %Eosinophils 4.4 % (0.0-10.0); %Monocytes 5.4 % (0.0-10.0); %Neutrophils 64.4 % (42.0-75.0); Hematocrit 39.8 % (36.0-47.0); Hemoglobin 13.6 g/dL (12.0-16.0); Mean Corpuscular HGB CONC 34.2 g/dL (32.0-36.0); Mean Corpuscular Hemoglobin 28.5 pg (27.0-31.0); Mean Corpuscular Volume 83.4 fL (78.0-98.0); Mean Platelet Volume 8.8 fL (7.4-10.4); Platelet Count 148 10x3/uL (130-400); RBC Distribution Width 16.3 % (11.5-14.5); Red Blood Cell (RBC) Count 4.77 mill/uL (4.20-5.40)
[2023-12-19 13:40] LABS: Troponin I 0.019 ng/mL (< 0.028)
[2023-12-19 13:43] LABS: ALT (SGPT) 21 U/L (8-55); AST (SGOT) 27 U/L (5-34); Albumin 3.9 g/dL (3.5-5.0); Alkaline Phosphatase 98 U/L (40-110); Anion Gap 14 mmol/L (10-20); BUN (Urea Nitrogen) 16 mg/dL (9.8-20.1); Bilirubin, Total 0.7 mg/dL (0.2-1.2); Calc. Creatinine Clearance 0 mL/min (70-130); Calcium 9.4 mg/dL (7.8-10.44); Carbon Dioxide 24 mmol/L (22-29); Chloride 105 mmol/L (98-107); Estimated GFR 77; Globulin 3.3 g/dL (2.4-3.5); Glucose 96 mg/dL (70-105); Potassium 3.8 mmol/L (3.5-5.1); Protein, Total 7.2 g/dL (6.0-8.3); Sodium 139 mmol/L (136-145)
== END 2023-12-19 15:29 | disposition home or self-care (01) ==
LOC: ERS 12:26
DX: R51.9 Headache, unspecified (principal); I10 Essential (primary) hypertension; E11.9 Type 2 diabetes mellitus without complications
CPT/HCPCS: 70450; 80053; 84484; 85025; 93005; 96374; 96375; J1200; J1885; J2765; J2930

== ENCOUNTER 2024-05-11 12:56 | Emergency (ER) | payer MEDICAID ==
[~2024-05-11 12:56] MED LIST changes: -BRENTUXIMAB VEDOTIN IV SCH; -DACARBAZINE IV SCH; -DOXORUBICIN IVPB SCH; +Iopamidol-370 76% 500 ML MDV (1 ML CHARGE) ONE; -SODIUM CHLORIDE 0.9% IV SCH; -SODIUM CHLORIDE 0.9% IVPB SCH
[2024-05-11 14:13] LABS: #Basophils 0.04 10x3/uL (0.0-0.2); %Basophils 0.4 % (0.0-1.0); %Eosinophils 2.6 % (0.0-10.0); %Monocytes 6.3 % (0.0-10.0); %Neutrophils 62.5 % (42.0-75.0); Hematocrit 40.8 % (36.0-47.0); Hemoglobin 13.8 g/dL (12.0-16.0); Mean Corpuscular HGB CONC 33.8 g/dL (32.0-36.0); Mean Corpuscular Hemoglobin 30.6 pg (27.0-31.0); Mean Corpuscular Volume 90.5 fL (78.0-98.0); Mean Platelet Volume 8.3 fL (7.4-10.4); Platelet Count 175 10x3/uL (130-400); Red Blood Cell (RBC) Count 4.51 mill/uL (4.20-5.40)
[2024-05-11 14:36] LABS: ALT (SGPT) 14 U/L (8-55); AST (SGOT) 16 U/L (5-34); Albumin 3.9 g/dL (3.5-5.0); Alkaline Phosphatase 68 U/L (40-110); Anion Gap 14 mmol/L (10-20); BUN (Urea Nitrogen) 19 mg/dL (9.8-20.1); Bilirubin, Total 0.6 mg/dL (0.2-1.2); Calc. Creatinine Clearance 0 mL/min (70-130); Calcium 9.2 mg/dL (7.8-10.44); Carbon Dioxide 23 mmol/L (22-29); Chloride 109 mmol/L (98-107); Estimated GFR 89; Globulin 2.7 g/dL (2.4-3.5); Glucose 117 mg/dL (70-105); Potassium 3.8 mmol/L (3.5-5.1); Protein, Total 6.6 g/dL (6.0-8.3); Sodium 142 mmol/L (136-145)
[2024-05-11] MEDS ORDERED: Ketorolac Tromethamine 30 MG (1 mL) VIAL ONE ×2 (14:57)
[2024-05-11] MEDS ORDERED: Acetaminophen 500 MG TAB ONE (14:57)
[2024-05-11] MEDS ORDERED: Clindamycin/D5W 600 mg/50 ml Premix Bag ONE (15:06)
[2024-05-11] MEDS ORDERED: Morphine 2 MG/ML VIAL ONE (15:59)
== END 2024-05-11 16:10 | disposition home or self-care (01) ==
LOC: ERS 12:56
DX: K08.89 Other specified disorders of teeth and supporting structures (principal); K02.9 Dental caries, unspecified; I10 Essential (primary) hypertension; E11.9 Type 2 diabetes mellitus without complications
CPT/HCPCS: 36415; 70491; 80053; 85025; 96365; 96375; J1885; J2272; J3490; Q9967

== ENCOUNTER 2024-08-29 13:41 | Emergency (ER) | payer OTHER ==
[2024-08-29] MEDS ORDERED: diphenhydrAMINE 50 MG/ML VIAL ONE (16:08)
[2024-08-29] MEDS ORDERED: Ondansetron PF 4 MG/2 ML Vial ONE (16:08)
[2024-08-29] MEDS ORDERED: Acetaminophen 500 MG TAB ONE (16:08)
[2024-08-29] MEDS ORDERED: Ketorolac Tromethamine 30 MG (1 mL) VIAL ONE (16:13)
[2024-08-29 16:46] LABS: #Basophils 0.08 10x3/uL (0.0-0.2); %Basophils 0.7 % (0.0-1.0); %Eosinophils 0.5 % (0.0-10.0); %Lymphocytes 17.9 % (21.0-51.0); %Monocytes 4.3 % (0.0-10.0); %Neutrophils 76.3 % (42.0-75.0); Hematocrit 45.2 % (36.0-47.0); Hemoglobin 15.4 g/dL (12.0-16.0); Mean Corpuscular HGB CONC 34.1 g/dL (32.0-36.0); Mean Corpuscular Hemoglobin 30.1 pg (27.0-31.0); Mean Corpuscular Volume 88.5 fL (78.0-98.0); Mean Platelet Volume 8.5 fL (7.4-10.4); Platelet Count 219 10x3/uL (130-400); RBC Distribution Width 14.2 % (11.5-14.5); Red Blood Cell (RBC) Count 5.11 mill/uL (4.20-5.40)
[2024-08-29 17:24] LABS: ALT (SGPT) 14 U/L (Less than 34); AST (SGOT) 24 U/L (11-34); Albumin 4.7 g/dL (3.1-4.5); Alkaline Phosphatase 78 U/L (40-110); Anion Gap 15 mmol/L (10-20); BUN (Urea Nitrogen) 12 mg/dL (9.8-20.1); Bilirubin, Total 0.7 mg/dL (0.3-1.2); Calc. Creatinine Clearance 0 mL/min (70-130); Calcium 10.1 mg/dL (7.8-10.44); Carbon Dioxide 21 mmol/L (22-29); Chloride 107 mmol/L (98-107); Estimated GFR 103; Globulin 3.8 g/dL (2.4-3.5); Glucose 104 mg/dL (70-105); Magnesium 1.9 mg/dL (1.6-2.6); Potassium 3.7 mmol/L (3.5-5.1); Protein, Total 8.5 g/dL (6.0-8.3); Sodium 139 mmol/L (136-145)
== END 2024-08-29 19:09 | disposition home or self-care (01) ==
LOC: ERS 13:41
DX: R51.9 Headache, unspecified (principal); I10 Essential (primary) hypertension; E11.9 Type 2 diabetes mellitus without complications
CPT/HCPCS: 80053; 83735; 85025; 87428; 96374; 96375; J1200; J1885; J2405

== ENCOUNTER 2025-03-04 01:15 | Emergency (ER) | payer SELFPAY ==
[2025-03-04 01:53] LABS: #Basophils 0.07 10x3/uL (0.0-0.2); #Eosinophils 0.44 10x3/uL (0.0-0.7); #Monocytes 0.62 10x3/uL (0.11-0.59); #Neutrophils 4.84 10x3/uL (1.40-6.50); %Basophils 0.7 % (0.0-1.0); %Eosinophils 4.6 % (0.0-10.0); %Lymphocytes 37.4 % (21.0-51.0); %Monocytes 6.5 % (0.0-10.0); %Neutrophils 50.4 % (42.0-75.0); Hematocrit 44.0 % (36.0-47.0); Hemoglobin 14.7 g/dL (12.0-16.0); Mean Corpuscular Hemoglobin 29.8 pg (27.0-31.0); Mean Corpuscular Volume 89.2 fL (78.0-98.0); Platelet Count 220 10x3/uL (130-400); Red Blood Cell (RBC) Count 4.93 mill/uL (4.20-5.40); White Blood Cell (WBC) Count 9.60 10x3/uL (4.8-10.8)
[2025-03-04 02:14] LABS: ALT (SGPT) 22 U/L (Less than 34); AST (SGOT) 19 U/L (11-34); Albumin 4.2 g/dL (3.1-4.5); Alkaline Phosphatase 78 U/L (40-110); Anion Gap 13 mmol/L (10-20); BUN (Urea Nitrogen) 15 mg/dL (9.8-20.1); Bilirubin, Total 0.4 mg/dL (0.3-1.2); Calc. Creatinine Clearance 0 mL/min (70-130); Calcium 9.3 mg/dL (7.8-10.44); Carbon Dioxide 20 mmol/L (22-29); Chloride 109 mmol/L (98-107); Globulin 3.1 g/dL (2.4-3.5); Glucose 108 mg/dL (70-105); Potassium 3.7 mmol/L (3.5-5.1); Sodium 138 mmol/L (136-145)
[2025-03-04 02:17] LABS: Troponin I 0.011 ng/mL (< 0.028)
== END 2025-03-04 04:21 | disposition home or self-care (01) ==
LOC: ERS 01:15
DX: F41.0 Panic disorder [episodic paroxysmal anxiety] (principal); E11.9 Type 2 diabetes mellitus without complications; I10 Essential (primary) hypertension
CPT/HCPCS: 36415; 71045; 80053; 84484; 85025; 93005

== ENCOUNTER 2025-07-08 09:12 | Outpatient (CLI) | payer OTHER ==
[2025-07-08] MEDS ORDERED: Iopamidol 370 76% 100 ML VIAL ONE (11:14)
== END 2025-07-08 09:13 | disposition home or self-care (01) ==
LOC: CT 09:12
PROVIDERS: ATTEND Internal Medicine Hematology & Oncology
DX: C81.12 Nodular sclerosis Hodgkin lymphoma, intrathoracic lymph nodes (principal); K76.0 Fatty (change of) liver, not elsewhere classified
CPT/HCPCS: 71260; 74177